=== PATIENT | male | born 1940 | race Caucasian/White ===

== ENCOUNTER → 2017-06-19 12:42 | Outpatient (CLI) | payer MEDICARE, OTHER ==
[2016-07-13 11:26] VITALS: BMI 26.8
[~2017-06-19 12:42] MED LIST: ALOPHEN PILLS5 MG PO; ATIVAN0.5 MG PO; BAYER CHEWABLE81 MG PO; CATAPRES0.1 MG PO; CO Q-10100 MG PO; COLACE100 MG PO; COUMADIN10 MG PO; COUMADIN5 MG PO; COUMADIN7.5 MG PO; DULCOLAX STOOL100 MG PO; FOLIC ACID1 MG PO; HEMOCYTE PLUS C1 CAP PO; HYDROCODON-ACE1 EAC7 PO; LASIX20 MG PO; LYRICA50 MG PO; MAG-OX 400 MG400 MG PO; NORVASC5 MG PO; OCUVITE TABLET1 TA1 PO; PEPCID20 MG PO; POTASSIUM99 M1 PO; PRAVACHOL20 MG PO; SINGULAIR10 MG PO; SINGULAIR5 MG PO; SYMBICORT 16010.2 GM INH; SYNTHROID125 MCG PO; SYNTHROID88 MCG PO; TUMS500 MG PO; VENTOLIN HFA18 GM INH; ZYLOPRIM100 MG PO; ZYRTEC10 MG PO
== END | disposition home or self-care (01) ==
LOC: D.US 12:42
DX: C34.90 Malignant neoplasm of unspecified part of unspecified bronchus or lung (principal); I65.23 Occlusion and stenosis of bilateral carotid arteries

== ENCOUNTER 2017-09-04 08:09 | Outpatient (CLI) | payer MEDICARE, OTHER ==
[2017-09-04] MEDS ORDERED: COUMADIN5 MG PO (09:17)
[2017-09-04] MEDS ORDERED: COUMADIN7.5 MG PO (09:18)
[2017-09-04] MEDS ORDERED: PRESERVISION AR1 CAP PO (09:24)
[2017-09-04 09:26] VITALS: BP 167/88; BMI 28.3
--- NOTE | 2017-09-04 09:29 | NUR ---
0910-STARTED SALINE LOCK WITH 20G CATHETER TIMES ONE ATTEMPT.
--- NOTE | 2017-09-04 15:00 | NUR ---
PATIENT LYING IN BED, SODIUM BICARB DRIP INFUSING TO LEFT WRIST PIV. PATIENT DENIES COMPLAINTS
--- NOTE | 2017-09-04 16:15 | NUR ---
PATIENT LYING IN BED, SODIUM BICARB DRIP INFUSING TO LEFT WRIST WITHOUT DIFFICULTY. DENIES COMPLAINTS, PATIENT REQUESTS WATER TO DRINK, CUP OF ICE WATER PROVIDED
== END 2017-09-04 17:35 | disposition home or self-care (01) ==
LOC: D.OPS 08:09 → D.CT 10:30 → D.OPS 17:35
DX: C34.90 Malignant neoplasm of unspecified part of unspecified bronchus or lung (principal)

== ENCOUNTER → 2018-06-18 14:33 | Outpatient (CLI) | payer MEDICARE, OTHER ==
[~2018-06-18 14:33] MED LIST changes: +CLEOCIN HCL300 MG PO; +PRESERVISION AR1 CAP PO
== END | disposition home or self-care (01) ==
LOC: D.US 14:33
DX: I65.23 Occlusion and stenosis of bilateral carotid arteries (principal)

== ENCOUNTER 2018-07-10 18:23 | Inpatient (IN) | payer MEDICARE, OTHER ==
[~2018-07-10] VITALS: Ht 177.8 cm; Wt 72.6 kg
--- NOTE | ~2018-07-10 | HP ---
PATIENT: RAGHAVENDRA COLE MEDICAL RECORD: [id number] ACCOUNT: [id number] LOCATION:D.[id number] : 44 ADMISSION DATE: 07/11/18 PCP: SOCRATES CROW MD HISTORY AND PHYSICAL EXAMINATION DATE OF ADMISSION: 07/10/2018 CHIEF COMPLAINT: Weakness and hypoxia. HISTORY OF PRESENT ILLNESS: This is a 77-year-old white male who had sudden onset of multiple episodes of nausea, vomiting followed by weakness became short of breath. 911 was called. His O2 sat was reportedly 82% on room air. He was given Xopenex and Zofran en route to the ER. He was placed on 2 liters nasal cannula, O2 sat was then in the low 90s. He had no chest pain. He has had a history of a carcinoid and had both right middle and right lower lobes were removed by Dr. Stephenson in 2015. He has obstructive sleep apnea and does use oxygen at night. His lab work was fairly unremarkable, but there was a suggestion of aspiration pneumonia, and he is admitted and started on antibiotics. PAST MEDICAL AND SURGICAL HISTORY: He has gout, hypertension, chronic kidney disease followed by Dr. Carlson, hypertension, anxiety, obstructive sleep apnea, carotid occlusive disease, hypercoagulable state, carcinoid, and hypothyroidism. PAST SURGICAL HISTORY: Right middle and right lower lobectomies in November [address] Stephenson. He has had right carotid endarterectomy. SOCIAL HISTORY: He is . He is retired. HABITS: No tobacco, alcohol or drugs. FAMILY HISTORY: Father at 44 of lung disease most likely emphysema. Brother had COPD and cancer. ALLERGIES: "CONTRAST DYE." HOME MEDICATIONS: Symbicort inhaler, levothyroxine 125 mcg once a day, Ativan 0.5 mg t.i.d. p.r.n. anxiety, aspirin 81 mg once a day, warfarin 5 and 7.5 alternating daily, Lyrica daily, Singulair 10 mg daily, amlodipine 5 mg daily, pravastatin 20 mg daily, allopurinol 100 mg daily, Protonix 40 mg daily, ProAir HFA q. 4-6 hours p.r.n. wheeze, HCTZ 25 mg. REVIEW OF SYSTEMS: HEENT: He does have some allergy problems. RESPIRATORY: He has had carcinoid and right lower and middle lobe lobectomies. CARDIAC: No known coronary disease but has carotid occlusive disease. GASTROINTESTINAL: Has reflux. GENITOURINARY: No significant problems other than some prostatitis. MUSCULOSKELETAL: No significant arthritis. NEUROLOGIC: No migraines or headaches. PSYCHIATRIC: Has anxiety. PHYSICAL EXAMINATION: VITAL SIGNS: Temperature 98.1, pulse 69, respiration 20, blood pressure 128/54. GENERAL: He is awake and alert, does not appear in acute distress. He is HISTORY AND PHYSICAL [id number] DOUGLAS,RAGHAVENDRA feeling better than what he was when he came into the ER. HEENT: Grossly within normal limits. NECK: Supple. No bruit. HEART: Regular rate and rhythm. LUNGS: Fairly clear. ABDOMEN: Soft. EXTREMITIES: No edema. LABORATORY DATA: CBC with a white count 11,000, hemoglobin 11.8, hematocrit 36.8, and platelets 128,000. Sodium 141, potassium 4.2, chloride 105, CO2 28.8, BUN 30, creatinine 2.0, glucose 107, and calcium 8.1. IMAGING: Chest x-ray was done showing stable right lung base consolidation, small right pleural effusion versus pleural thickening. ASSESSMENT: 1. Probable aspiration pneumonia. 2. Hypoxia. PLAN: We will give IV fluids, start antibiotics. Repeat chest x-ray. Continue his usual medicines. Other tests and procedures as warranted. TRANSINT:[id number] Voice Confirmation ID: [id number] DOCUMENT ID: [id number] SOCRATES CROW MD at 0850 CC: [id number] DICTATION DATE: 07/11/182149 MACHINERY CLEANER: 07/11/18 2309 ADM IN [place] [id number] [place] [address]
[~2018-07-10 18:23] MED LIST changes: -CLEOCIN HCL300 MG PO
[2018-07-10 19:15] LABS: BASOPHILS 0.1 % (0-2); EOSINOPHILS 0.1 % (0-7); HEMATOCRIT 39.4 % (42.0-54.0); HEMOGLOBIN 12.8 g/dL (13.5-17.5); IMMATURE GRANULOCYTES 0.2 % (0-5); LYMPHOCYTES 3.5 % (15-50); MCH 30.1 pg (26.0-34.0); MCHC 32.5 g/dL (31.0-37.0); MCV 92.7 fL (80.0-100.0); MEAN PLATELET VOLUME 11.4 fL (7.4-10.4); MONOCYTES 5.9 % (2-11); NEUTROPHILS 90.2 % (40-80); RBC 4.25 10x6/uL (4.20-6.10); RDW 14.3 % (11.5-14.5); WBC 12.5 10x3/uL (4.8-10.8)
[2018-07-10 19:26] VITALS: BP 111/57
[2018-07-10 19:26] LABS: PLATELET COUNT 121 10x3/uL (130-400)
[2018-07-10 19:29] LABS: APTT 29.7 SECONDS (22.8-39.4); INR 2.37 (0.85-1.17); PROTIME 25.3 SECONDS (11.6-15.0)
[2018-07-10 19:31] LABS: D-DIMER-QUANTITATIVE 0.34 ug/mLFEU (0.20-0.54)
[2018-07-10 19:37] LABS: ALBUMIN 3.2 g/dL (3.4-5.0); ALKALINE PHOSPHATASE 60 U/L (46-116); ALT (SGPT) 20 U/L (10-68); BILIRUBIN - TOTAL 0.62 mg/dL (0.2-1.3); CALC OSMOLALITY 283 mosm/kg (275-300); CALCIUM 8.4 mg/dL (8.5-10.1); CARBON DIOXIDE 30.5 mmol/L (21.0-32.0); CHLORIDE - SERUM 103 mmol/L (98-107); CREATININE - SERUM 1.8 mg/dL (0.6-1.3); GLUCOSE 133 mg/dL (74-106); SODIUM 138 mmol/L (136-145); UREA NITROGEN 28 mg/dL (7-18); eGFR NON AFRICAN AMERICAN 39 mL/min (90-120)
[2018-07-10 19:52] LABS: CREATINE KINASE 55 UL (21-232); PRO BNP 228 pg/mL (0-450); TROPONIN-I < 0.017 ng/mL (0.000-0.060)
[2018-07-10 20:15] VITALS: BP 110/62
[2018-07-10 21:00] VITALS: BP 114/63
[2018-07-10 22:00] VITALS: BP 124/65
[2018-07-11 02:13] VITALS: BP 117/55; BMI 23.0
[2018-07-11 04:00] VITALS: BP 127/71
[2018-07-11 07:11] LABS: BASOPHILS 0 % (0-2); EOSINOPHILS 0 % (0-7); HEMATOCRIT 36.8 % (42.0-54.0); HEMOGLOBIN 11.8 g/dL (13.5-17.5); IMMATURE GRANULOCYTES 0.1 % (0-5); LYMPHOCYTES 5.2 % (15-50); MCH 29.9 pg (26.0-34.0); MCHC 32.1 g/dL (31.0-37.0); MCV 93.2 fL (80.0-100.0); MEAN PLATELET VOLUME 11.6 fL (7.4-10.4); MONOCYTES 5.4 % (2-11); NEUTROPHILS 89.3 % (40-80); PLATELET COUNT 128 10x3/uL (130-400); RBC 3.95 10x6/uL (4.20-6.10); RDW 14.7 % (11.5-14.5)
[2018-07-11 07:43] LABS: ANION GAP 11.4 mmol/L (8-16); CALCIUM 8.1 mg/dL (8.5-10.1); CARBON DIOXIDE 28.8 mmol/L (21.0-32.0); POTASSIUM - SERUM 4.2 mmol/L (3.5-5.1)
[2018-07-11 09:56] VITALS: BP 131/62
[2018-07-11 13:28] VITALS: BP 128/54
[2018-07-11 14:45] VITALS: Ht 177.8 cm; Wt 72.6 kg
[2018-07-11 16:40] VITALS: BP 137/66
[2018-07-11 20:00] VITALS: BP 138/65
[2018-07-12 05:37] LABS: BASOPHILS 0.2 % (0-2); EOSINOPHILS 0.8 % (0-7); HEMATOCRIT 36.2 % (42.0-54.0); HEMOGLOBIN 11.6 g/dL (13.5-17.5); IMMATURE GRANULOCYTES 0.2 % (0-5); LYMPHOCYTES 15.3 % (15-50); MCH 29.8 pg (26.0-34.0); MCV 93.1 fL (80.0-100.0); MEAN PLATELET VOLUME 10.6 fL (7.4-10.4); NEUTROPHILS 71.5 % (40-80); RBC 3.89 10x6/uL (4.20-6.10); RDW 14.9 % (11.5-14.5)
[2018-07-12 05:53] LABS: PLATELET COUNT 101 10x3/uL (130-400); WBC 4.8 10x3/uL (4.8-10.8)
[2018-07-12 06:10] LABS: INR 2.24 (0.85-1.17); PROTIME 24.2 SECONDS (11.6-15.0)
[2018-07-12 06:22] LABS: ANION GAP 12.6 mmol/L (8-16); CALCIUM 7.8 mg/dL (8.5-10.1); CARBON DIOXIDE 28.2 mmol/L (21.0-32.0); CREATININE - SERUM 1.6 mg/dL (0.6-1.3); POTASSIUM - SERUM 3.8 mmol/L (3.5-5.1)
[2018-07-12 06:34] VITALS: BP 147/74
[2018-07-12] MEDS ORDERED: CLEOCIN HCL300 MG PO (13:36)
[2018-07-22 17:07] LABS: AEROBE ID Final report (()); RESULT 1 Moraxella species (())
== END 2018-07-12 14:27 | disposition home or self-care (01) | DRG 206 ==
LOC: D.ER 18:23 → D.MS 21:24 → OBSVTIME 21:24 → D.MS 07-11 15:26
PROVIDERS: Family Medicine
DX: T17.800A Unspecified foreign body in other parts of respiratory tract causing asphyxiation, initial encounter (principal); X58.XXXA Exposure to other specified factors, initial encounter; M10.9 Gout, unspecified; I12.9 Hypertensive chronic kidney disease with stage 1 through stage 4 chronic kidney disease, or unspecified chronic kidney disease; N18.9 Chronic kidney disease, unspecified; F41.9 Anxiety disorder, unspecified; G47.33 Obstructive sleep apnea (adult) (pediatric); E03.9 Hypothyroidism, unspecified

== ENCOUNTER → 2019-04-23 09:04 | Outpatient (CLI) | payer MEDICARE, OTHER ==
[2018-07-11 14:45] VITALS: BMI 22.9
[~2019-04-23 09:04] MED LIST changes: +CLEOCIN HCL300 MG PO
== END | disposition home or self-care (01) ==
LOC: D.MRI 09:04
PROVIDERS: ATTEND Internal Medicine Hematology & Oncology
DX: C34.30 Malignant neoplasm of lower lobe, unspecified bronchus or lung (principal)

== ENCOUNTER 2019-05-07 10:58 | Outpatient (CLI) | payer MEDICARE, OTHER ==
[~2019-05-07] VITALS: Ht 177.8 cm; Wt 92.7 kg
[2019-05-07 11:46] VITALS: BP 183/83; Ht 177.8 cm; Wt 92.7 kg
--- NOTE | 2019-05-07 19:26 | NUR ---
[address] IV INFUSING ON A PUMP FOR ONE HOUR AND THEN PT WILL BE DISCHARGED. RECIEVED A TRAY OF FOOD. 1700 IV REMOVED AND PT GIVEN INSTRUCTIONS TO CALL MD FOR ANY CONCERNS.
== END 2019-05-07 17:15 | disposition home or self-care (01) ==
LOC: D.OPS 10:58 → D.CT 15:00 → D.OPS 17:15
PROVIDERS: ATTEND Internal Medicine Hematology & Oncology
DX: C22.8 Malignant neoplasm of liver, primary, unspecified as to type (principal)

== ENCOUNTER 2019-05-21 08:14 | Outpatient (CLI) | payer MEDICARE, OTHER ==
[~2019-05-21] VITALS: Ht 177.8 cm; Wt 93.2 kg
[2019-05-21 08:29] LABS: BASOPHILS 0.3 % (0-2); EOSINOPHILS 1.9 % (0-7); HEMATOCRIT 37.3 % (42.0-54.0); HEMOGLOBIN 12.3 g/dL (13.5-17.5); IMMATURE GRANULOCYTES 0.5 % (0-5); LYMPHOCYTES 28.6 % (15-50); MEAN PLATELET VOLUME 10.9 fL (7.4-10.4); MONOCYTES 11.7 % (2-11); RDW 14.9 % (11.5-14.5); WBC 3.7 10x3/uL (4.8-10.8)
[2019-05-21 08:39] LABS: ANION GAP 8.8 mmol/L (8-16); CALCIUM 8.9 mg/dL (8.5-10.1); CARBON DIOXIDE 31.1 mmol/L (21.0-32.0); CREATININE - SERUM 1.7 mg/dL (0.6-1.3); POTASSIUM - SERUM 3.9 mmol/L (3.5-5.1)
[2019-05-21 08:44] LABS: PLATELET COUNT 128 10x3/uL (130-400)
[2019-05-21 08:46] LABS: APTT 30.6 SECONDS (22.8-39.4); INR 0.98 (0.85-1.17); PROTIME 12.5 SECONDS (11.6-15.0)
[2019-05-21] MEDS ORDERED: BAYER CHEWABLE81 MG PO (09:19)
[2019-05-21] MEDS ORDERED: VITAMIN D2000 UNIT PO (09:20)
[2019-05-21] MEDS ORDERED: LOVENOX INJ100 MG/ML SC (09:24)
[2019-05-21 09:39] VITALS: BP 172/80; Ht 177.8 cm; Wt 93.2 kg
--- NOTE | 2019-05-21 17:48 | NUR ---
[address] CHICAS'S OFFICE SPOKE WITH CHATO HIS NURSE. STATES PT IS TO RESUME COUMADIN 7 DAYS POST PROCEDURE. ORDER ENTERED. Haleigh BRAUN R.N. 1545 MRS. COLE QUESTIONS HOLDING COUMADIN & NOT RESUMING LOVENOX INJECTIONS. [address]ND CALL TO [address]. CHICAS'S OFFICE. CHATO STATES DR. CHICAS DID NOT ORDER THE LOVENOX A BRIDGE TO COUMADIN. THOSE ORDERS CAME FROM DR. TROTTER. Haleigh BRAUN R.N. [address] TROTTER'S OFFICE. SPOKE WITH CARMITA JONES R.N. HE STATES PROTOCOL WOULD BE TO RESUME LOVENOX 24HRS POST PROCEDURE & COUMADIN ON 05/22/19. PT TO HAVE LAB: PT, PTT, INR DONE 05/23/19/@ [address] TROTTER'S OFFICE. INFORMATION PRESENT TO MRS. COLE & DAUGHTER DERRICK KIRBY PER PHONE. QUESTIONS POSED TO MG OF LOVENOX INJECTION. Haleigh BRAUN R.N. [address] TROTTER'S OFFICE. SPOKE WITH CARMITA JONES R.N. R/T MG OF LOVENOX INJECTION. DR. TROTTER TO PHONE. REVIEWED VARIOUS ORDERS RECEIVED. DR. TROTTER STATES BASED ON MEMOS FROM DR. CHICAS TO ORDER THE PATIENT TO HOLD COUMADIN FOR 7 DAYS POST PROCEDURE. BEGIN LOVENOX SUBCUTANEOUS INJECTIONS: 80MG TWICE DAILY STARTING 05/22/19. Haleigh BRAUN R.N. 1700 MED REC WITH NOTATION TO HOLD ASA & COUMADIN 7 DAYS POST PROCEDURE, & TAKE LOVENOX 80MG SUBCUTANEOUS, RTC APPT., [facility] D/C INSTRUCTIONS WELL CT GUIDED LIVER BIOPSY D/C INSTRUCTIONS REVIEWED WITH PATIENT, MRS. COLE, & DAUGHTER DERRICK KIRBY. WITH EMPHASIS TO PATIENT & FAMILY THAT THIS WAS PER DR. TROTTER. PT & FAMILY VOICED UNDERSTANDING. TO PRIVATE CAR PER WHEELCHAIR BY Karen BAUER R.N.
== END 2019-05-21 17:00 | disposition home or self-care (01) ==
LOC: D.SP 08:14 → D.CT 10:00 → D.SP 17:00
PROVIDERS: Radiology Vascular & Interventional Radiology; ATTEND Internal Medicine Hematology & Oncology
DX: C22.8 Malignant neoplasm of liver, primary, unspecified as to type (principal); Z01.812 Encounter for preprocedural laboratory examination

== ENCOUNTER 2019-06-13 14:53 | Outpatient (CLI) | payer MEDICARE, OTHER ==
[~2019-06-13 14:53] MED LIST changes: +LOVENOX INJ100 MG/ML SC; +VITAMIN D2000 UNIT PO
[2019-06-13] MEDS ORDERED: JANTOVEN2.5 MG PO (15:07)
[2019-06-13] MEDS ORDERED: COLACE100 MG PO (18:34)
[2019-06-14] MEDS ORDERED: LYRICA50 MG PO (07:07)
[2019-06-14 11:01] VITALS: BMI 29.4
[2019-06-14] MEDS ORDERED: NORVASC10 MG PO (13:07)
== END 2019-06-13 17:02 | disposition other institution (70) ==
LOC: D.OPS 14:53
PROVIDERS: ATTEND Internal Medicine Nephrology
DX: R07.9 Chest pain, unspecified (principal); N28.9 Disorder of kidney and ureter, unspecified

== ENCOUNTER 2019-06-13 14:53 | Inpatient (IN) | payer MEDICARE, OTHER ==
[~2019-06-13] VITALS: Ht 177.8 cm; Wt 92.9 kg
[2019-06-13] MEDS ORDERED: JANTOVEN2.5 MG PO (15:07)
[2019-06-13 15:30] LABS: BASOPHILS 0.2 % (0-2); EOSINOPHILS 2.2 % (0-7); HEMATOCRIT 37.3 % (42.0-54.0); HEMOGLOBIN 12.3 g/dL (13.5-17.5); IMMATURE GRANULOCYTES 0.2 % (0-5); LYMPHOCYTES 29.3 % (15-50); MCH 30.3 pg (26.0-34.0); MCV 91.9 fL (80.0-100.0); MEAN PLATELET VOLUME 10.9 fL (7.4-10.4); MONOCYTES 8.9 % (2-11); NEUTROPHILS 59.2 % (40-80); PLATELET COUNT 133 10x3/uL (130-400); RBC 4.06 10x6/uL (4.20-6.10); RDW 15.1 % (11.5-14.5); WBC 4.1 10x3/uL (4.8-10.8)
[2019-06-13 16:04] LABS: ALBUMIN 3.4 g/dL (3.4-5.0); ALKALINE PHOSPHATASE 64 U/L (46-116); ALT (SGPT) 18 U/L (10-68); BILIRUBIN - TOTAL 0.31 mg/dL (0.2-1.3); CALC OSMOLALITY 284 mosm/kg (275-300); CALCIUM 9.3 mg/dL (8.5-10.1); CARBON DIOXIDE 29.3 mmol/L (21.0-32.0); CHLORIDE - SERUM 105 mmol/L (98-107); CREATININE - SERUM 1.6 mg/dL (0.6-1.3); GLUCOSE 94 mg/dL (74-106); POTASSIUM - SERUM 4.1 mmol/L (3.5-5.1); PROTEIN - SERUM 6.8 g/dL (6.4-8.2); SODIUM 142 mmol/L (136-145); UREA NITROGEN 17 mg/dL (7-18); eGFR NON AFRICAN AMERICAN 45 mL/min (90-120)
[2019-06-13 16:15] LABS: CKMB 1.1 U/L (0.0-3.6); CREATINE KINASE 65 UL (21-232); MAGNESIUM - SERUM 1.9 mg/dL (1.8-2.4)
[2019-06-13 16:17] LABS: APTT 29.4 SECONDS (22.8-39.4); INR 1.5 (0.85-1.17); PROTIME 17.5 SECONDS (11.6-15.0)
[2019-06-13 16:20] LABS: TROPONIN-I < 0.017 ng/mL (0.000-0.060)
[2019-06-13] MEDS ORDERED: COLACE100 MG PO (18:34)
--- NOTE | 2019-06-13 18:40 | NUR ---
RECEIVED PT FROM ER VIA W/C AAOX4 NELSON LAGOON DENIES ANY CHEST PAIN RESP UNLABORED NAD NOTED
--- NOTE | 2019-06-13 19:20 | NUR ---
AWAKE AND ALERT WITH FAMILY PRESENT PT WANTING ATIVAN NOW LCTA SKIN WARM AND DRY DENIES ANY OTHER NEEDS BED LOW AND LOCKED AND CALL LIGHT IS IN REACH
[2019-06-13 20:00] VITALS: BP 160/70
[2019-06-13 21:25] LABS: CKMB 0.9 U/L (0.0-3.6); CREATINE KINASE 58 UL (21-232)
[2019-06-13 21:26] LABS: TROPONIN-I < 0.017 ng/mL (0.000-0.060)
[2019-06-14] VITALS: BP 166/72
[2019-06-14 01:36] VITALS: BP 160/70
[2019-06-14 03:45] VITALS: BP 174/86; BMI 29.4
[2019-06-14 04:30] VITALS: BP 161/79
[2019-06-14 05:19] LABS: CKMB 0.8 U/L (0.0-3.6); CREATINE KINASE 77 UL (21-232)
[2019-06-14 05:20] LABS: TROPONIN-I < 0.017 ng/mL (0.000-0.060)
[2019-06-14] MEDS ORDERED: LYRICA50 MG PO (07:07)
--- NOTE | 2019-06-14 07:40 | NUR ---
ASSESSMENT COMPLETED. DENIES ANY NEEDS. ALERT AND ORIENTED.TELEMERTY SHOWS SR 65. PT IS NP0,UNTIL SEEN BY CARDIOLOGY. UP AB FLACO. WILL MONITOR
[2019-06-14 09:04] VITALS: BP 176/89
[2019-06-14 11:01] VITALS: Ht 177.8 cm; Wt 92.9 kg
[2019-06-14 12:20] VITALS: BP 194/95
[2019-06-14] MEDS ORDERED: NORVASC10 MG PO (13:07)
--- NOTE | 2019-06-14 15:01 | NUR ---
PT DISCHARGED. INSTRUCTIONS GIVEN TO PT AND . TO PRIVATE CAR PER WHEELCHAIR
--- NOTE | 2019-06-14 15:56 | MORECARE ---
CASE MANAGEMENT DISCHARGE SUMMARY PATIENT: RAGHAVENDRA COLE UNIT: [id number] ADM DATE: 06/13/19 AGE: 78 : 42 SEX: M ROOM/BED: D.3519 AUTHOR: ALEXANDRO GARCIA PHYSICIAN: REFERRING PHYSICIAN: BABAK CHICAS MD DATE OF SERVICE: 06/14/19 Discharge Plan Patient Name: RAGHAVENDRA COLE Facility: [facility]:[place] : 1940 Planned Disposition: Home Anticipated Discharge Date: 06/14/19 Discharge Date: 06/14/2019 Expected LOS: 1 Initial Reviewer: [email or web address] Initial Review Date: 06/14/2019 Generated: 06/14/19 4:56 pm Comments DCP- Discharge Planning Updated by [email or web address]: José Antonio Mc on 06/14/19 2:[address] Patient Name: RAGHAVENDRA COLE Admission Status: ER Accout number: [id number] Admission Date: 06-13-2019 : 1940 Admission Diagnosis:CHEST PAIN, UNSPECIFIED Attending: BABAK CHICAS Current LOS: 1 Anticipated DC Date: 06-14-2019 Planned Disposition: Home Primary Insurance: MEDICARE A & B Discharge Planning Comments: CM MET WITH PT IN ROOM TO DISCUSS DISCHARGE PLANNING AND NEEDS. PT REPORTS LIVING AT HOME INDEPENDENTLY WITH SPOUSE. PT HAS HOME OXYGEN ONLY FROM [facility]. PT HAS NO OUTSIDE SERVICES ASSISTING IN THE HOME. CM DISCUSSED AVAILABILITY OF HOME HEALTH, REHAB SERVICES AND MEDICAL EQUIPMENT. PT DENIES DISCHARGE NEEDS, REPORTS HIS WILL PICK HIM UP FOR DISCHARGE HOME. Person Investigator: José Antonio Mc DCPIA - Discharge Planning Initial Assessment Updated by [email or web address]: José Antonio Mc on 06/14/19 3:48 pm * Is the patient Alert and Oriented? Yes * How many steps to enter\exit or inside your home? RAMP OR 2 * PCP DR. CROW * Pharmacy [facility] * Preadmission Environment Home with Family * ADLs Independent * Equipment Oxygen * Other Equipment HOME OXYGEN ONLY [facility] - PROVIDER * List name and contact numbers for known caregivers / representatives who currently or will assist patient after discharge: SEBASTIAN COLE, SPOUSE, * Verbal permission to speak to the caregivers and representatives has been obtained from the patient. Yes * Community resources currently utilized None * Please name any agencies selected above. NONE * Additional services required to return to the preadmission environment? No * Can the patient safely return to the preadmission environment? Yes * Has this patient been hospitalized within the prior 30 days at any hospital? No Patient Name: RAGHAVENDRA COLE Page [id number] at 1556 All edits/amendments must be made on the electronic document DICTATION DATE: 06/14/196 WELDING FOREMAN: SANGEETHA 06/14/19 1556 RPT#: [id number] DC DATE:06/14/19 STATUS: DIS IN [facility] [address] [place] [address] END OF REPORT
== END 2019-06-14 15:02 | disposition home or self-care (01) | DRG 313 ==
LOC: D.ER 14:53 → D.M2 17:02
PROVIDERS: Emergency Medicine; ADMIT Internal Medicine Nephrology; ATTEND Internal Medicine Nephrology
DX: R07.9 Chest pain, unspecified (principal); I12.9 Hypertensive chronic kidney disease with stage 1 through stage 4 chronic kidney disease, or unspecified chronic kidney disease; K21.9 Gastro-esophageal reflux disease without esophagitis; J44.9 Chronic obstructive pulmonary disease, unspecified; E78.5 Hyperlipidemia, unspecified; Q05.9 Spina bifida, unspecified; Z86.73 Personal history of transient ischemic attack (TIA), and cerebral infarction without residual deficits; N18.3 Chronic kidney disease, stage 3 (moderate)

== ENCOUNTER → 2019-07-04 11:32 | Outpatient (CLI) | payer MEDICARE, OTHER ==
[2019-06-14 11:01] VITALS: BMI 29.4
[~2019-07-04 11:32] MED LIST changes: +COUMADIN2.5 MG PO; +DULCOLAX5 MG PO; +HYDRALAZINE HCL25 MG PO; +JANTOVEN2.5 MG PO; +NORVASC10 MG PO; +PROTONIX40 MG PO; +SYNTHROID100 MCG PO
== END | disposition home or self-care (01) ==
LOC: D.HCCARDIO 11:32
PROVIDERS: ATTEND Internal Medicine Cardiovascular Disease
DX: I20.9 Angina pectoris, unspecified (principal)

== ENCOUNTER 2019-07-29 11:03 | Outpatient (CLI) | payer MEDICARE, OTHER ==
[~2019-07-29] VITALS: Ht 177.8 cm; Wt 94.5 kg
--- NOTE | ~2019-07-29 | HEMODYNAMI ---
PATIENT:RAGHAVENDRA COLE MEDICAL RECORD: [id number] : 44 LOCATION:[id number] ADMISSION DATE: 07/29/19 Generatedon:07/29/201914:16 Patient name: RAGHAVENDRA COLE Patient #: [id number] : 1940 Date of study: 07/29/2019 Page: Of Hemodynamic Procedure Report Patient Data Patient Demographics Procedure consent was obtained First Name: RAGHAVENDRA Gender: Male Last Name: DOUGLAS : 1940 Patient #: [id number] Age: 78 year(s) Race: SSN: [id number] Additional ID: [id number] Contact details [address]: [address] [place] [address] State: [place] City: [place] Zip code: [address] Past Medical History Allergies Allergen Reaction Date Comments Reported Other allergy Other 07/29/2019 iodine/ Admission Admission Data Admission Date: 07/29/2019 Admission Time: 11:03 Arrival Date: 07/29/2019 Arrival Time: 13:00 Room #: [id number] Insurance Payor: Medicare, Private health insurance Height (in.): 69.69 BSA: 2.12 (m2) Height (cm.): 177 BMI: 30.32 (kg/m2) Weight (lbs.): 209.44 Weight (kg.): 95 Lab Results Lab Result Date: 07/29/2019 Lab Result Time: 0:00 Biochemistry Name Units Result Min Max BUN mg/dl 26 --(----)-* 7 18 Creatinine mg/dl 2.7 --(----)-* 0.6 1.3 eGFR ml/min 24 *-(----)-- 90 120 NONAFRICAN CBC Name Units Result Min Max Hemoglobin g/dl 12.1 *-(----)-- 13.5 17.5 Procedure Procedure Types Cath Procedure Diagnostic Procedure LHC LHC w/Coronaries Sedation Charges Moderate Sedation up to 30 minutes Procedure Description Procedure Date Procedure Date: 07/29/2019 Procedure Start Time: 13:51 Procedure End Time: 14:11 Procedure Staff Name Function Clarissa Sukumar RT Monitor Lai Ramos MD Performing Physician Jasmine Esquivel RT Scrub Matilda Lennon RT Monitor Jarrett Pillai RN Nurse Indication Angina Procedure Data Cath Procedure Fluoroscopy Diagnostic fluoroscopy Total fluoroscopy Time: 2.6 time: 2.6 min min Diagnostic fluoroscopy Total fluoroscopy dose: 401 dose: 401 mGy mGy Contrast Material Contrast Material Type Amount (ml) Isovue 300 41 Entry Location Entry Primary Successful Side Size Upsize Upsize Entry Closure Succes sful Closure Location (Fr) 1 (Fr) 2 (Fr) Remarks Device Remarks Femoral Right 5 Fr Exoseal artery Estimated blood loss: 5 ml Procedure Complications No complications Procedure Medications Medication Administration Route Dosage 0.9% NaCl I.V. 100 ml/hr Oxygen etCO2 Nasal cannula 2 l/min Heparin Flush Bag added to field 2 bags (1000units/500ml NS) Lidocaine 2% added to field 20 Radial Cocktail added to field 1 syringe (Verapamil 2mg/Nitro 400mcg/Heparin 1500units) Versed I.V. 1 mg Fentanyl I.V. 50 mcg Versed I.V. 1 mg Fentanyl I.V. 50 mcg Hemodynamics Rest BSA: 2.12 (m2) HGB: 12.1 (g/dl) O2 Consumption: Estimated: 240.19 (ml/min) O2 Co nsumption indexed: Estimated:113.3 (ml/min/m) Heart Rate: 66 (bpm) Pressure Samples Time Site Value (mmHg) Purpose Heart Use Rate(bpm) 14:05 LV 169/20,26 Snapshot 70 14:05 LV 150/-8,14 Snapshot 70 Gradients Valve Time Site Site Mean SEP/DFP Peak To Heart Use 1 2 (mmHg) (sec/min) Peak Rate (mmHg) (bpm) Aortic 14:06 LV AO 76 Snapshots Pre Cath Intra NCS Post Cath Vital Signs Time Heart Resp SPO2 etCO2 NIBP (mmHg) Rhythm Pain Sedation Rate (ipm) (%) (mmHg) Status Level (bpm) 13:40:55 64 14 96 33.8 166/85(141) NSR 0 (11) 10(A) , No pain 13:45:20 63 19 93 35.3 156/80(127) NSR 0 (11) 10(A) , No pain 13:49:42 63 14 92 15 151/78(126) NSR 0 (11) 10(A) , No pain 13:53:58 71 11 94 39.1 159/86(128) NSR 0 (11) 10(A) , No pain 13:58:16 73 11 91 31.6 162/91(128) NSR 0 (11) 10(A) , No pain 14:02:40 74 11 92 28.5 163/78(135) NSR 0 (11) 9(A) , No pain 14:07:04 77 13 93 36.8 151/78(122) NSR 0 (11) 9(A) , No pain 14:11:21 73 12 93 39.8 155/86(128) NSR 0 (11) 9(A) , No pain Medications Time Medication Route Dose Verified Delivered Reason Notes E ffectiveness by by 13:40:03 0.9% NaCl I.V. 100 Jarrett Jarrett Per ml/hr Rosas Lorigan physician RN RN 13:40:12 Oxygen etCO2 2 l/min Jarrett Jarrett for low 02 Nasal Lorigan Lorigan sats cannula RN RN 13:40:24 Heparin Flush added 2 bags Jarrett Jarrett used for Bag to Lorigan Lorigan procedure (1000units/500ml field RN RN NS) 13:40:34 Lidocaine 2% added 20ml Jarrett Jarrett for local to vial Lorigan Lorigan anesthetic field RN RN 13:40:55 Radial Cocktail added 1 Jarrett Jarrett used for (Verapamil to syringe Lorigan Lorigan procedure 2mg/Nitro field RN RN 400mcg/Hepari 13:51:48 Versed I.V. 1 mg Jarrett Jarrett for Lorigan Lorigan sedation RN RN 13:51:56 Fentanyl I.V. 50 mcg Jarrett Jarrett for Lorigan Lorigan sedation RN RN 13:55:20 Versed I.V. 1 mg Jarrett Jarrett for Lorigan Lorigan sedation RN RN 13:55:26 Fentanyl I.V. 50 mcg Jarrett Jarrett for Lorigan Lorigan sedation RN precipitator supervisor Log Time Note 13:21:18 Informed consent obtained and on chart 13:21:37 Diagnostic Cath Status : Elective 13:22:04 Indication : Angina 13:22:13 ACC Patient presents with Unstable Angina CCS Anginal Class 4--Inability to carry out any physical activity w/o angina. Angina may occur at rest. 13:22:26 Procedure Status Elective Heart Cath (OP). 13:22:57 Jasmine Esquivel RT(R) sent for patient. Start room use. 13:23:19 Time tracking: Regular hours (M-F 7:00 - 5:00) 13:23:24 Plan of Care:Hemodynamics will remain stable., Cardiac rhythm will remain stable., Comfort level will be maintained., Respiratory function will remain adequate., Patient/ family verbilizes understanding of procedure., Procedure tolerated without complication., Recovers from procedure without complications.. 13:28:12 Patient received from Pre/Post Procedure Room to CCL 2 Alert and oriented. Tansferred to table in Supine position. 13:28:16 Warm blankets applied, and brenda hugger turned on for patient comfort. 13:28:17 Correct patient and procedure confirmed by team. 13:28:18 ECG and BP/O2 sat monitors applied to patient. 13:39:40 Vital chart was started 13:39:58 Arrival Date: 07/29/2019 1:00:00 PM 13:40:03 0.9% NaCl 100 ml/hr I.V. was administered by Jarrett Pillai RN; Per physician; Verbal order read back and verified. 13:40:07 Insurance Payor : Private health insurance, Medicare 13:40:12 Oxygen 2 l/min etCO2 Nasal cannula was administered by Jarrett Pillai RN; for low 02 sats; Verbal order read back and verified. 13:40:24 Heparin Flush Bag (1000units/500ml NS) 2 bags added to field was administered by Jarrett Pillai RN; used for procedure; Verbal order read back and verified. 13:40:31 Patient Height : 69.69 inches 13:40:34 Lidocaine 2% 20ml vial added to field was administered by Jarrett Pillai RN; for local anesthetic; Verbal order read back and verified. 13:40:39 Patient Weight : 209.44 lbs 13:40:55 Radial Cocktail (Verapamil 2mg/Nitro 400mcg/Heparin 1500units) 1 syringe added to field was administered by Jarrett Pillai RN; used for procedure; Verbal order read back and verified. 13:41:01 Baseline sample Acquired. 13:41:06 Rhythm: sinus rhythm 13:41:08 Full Disclosure recording started 13:41:22 H&P Date Dictated: 07/29/2019 Within 30 days and on chart., H&P Addendum completed by physician on day of procedure. (MUST COMPLETE FOR ALL OUTPATIENTS). 13:41:41 Pre-procedure instructions explained to patient. 13:41:42 Pre-op teaching completed and patient verbalized understanding. 13:41:59 Family in patients room. 13:42:15 Patient NPO since Midnight. 13:43:11 Patient allergic to Other allergyiodine/ 13:43:19 Is the patient allergic to Iodine/contrast media? not really allergic but Dr. Holland wanted pre medicated. 13:43:57 Was the patient premedicated? Yes 13:44:52 Is patient on blood thinner?Yes 13:45:15 Warfarin stopped 3 days ago. 13:45:20 Patient diabetic?no. 13:45:44 ----Pre-sedation anethsthesia assessment.---- 13:45:53 Previous problem with sedation/anesthesia? No ? 13:45:55 Snore? Yes 13:45:58 Sleep apnea? No 13:46:00 Deviated septum? No 13:46:04 Opens mouth fully? Yes 13:46:06 Sticks out tongue? Yes 13:46:18 Airway obstruction? Yes lung ca history 13:46:26 Dentures? No ? 13:48:01 Pre procedure: left dorsailis pedis pulse 1+ Palpable, but thready & weak; easily obliterated 13:48:06 Pre procedure: right dorsailis pedis pulse 1+ Palpable, but thready & weak; easily obliterated 13:48:14 Patient pain scale 0/10 ?. 13:48:23 Modified Jeff's test Radial < 7 seconds 13:48:37 IV patent on arrival in left forearm with 0.9% NaCl at [facility]. 13:48:50 Lab results completed and on chart. 13:49:04 Right Radial & Right Groin area was prepped with chlora-prep and draped in sterile fashion 13:49:06 Alarms reviewed by R. N. 13:49:07 Sharps counted by scrub and verified by R.N. 13:49:08 Physician arrived 13:49:11 --------ALL STOP TIME OUT------ 13:49:12 Final Timeout: patient, procedure, and site verified with staff and physician. All members of the team are in agreement. 13:49:15 Right Radial & Right Groin site verified by team. 13:49:22 Fire Safety Assessment: A--An alcohol-based skin anteseptic being used preoperatively., C--Open oxygen or nitrous oxide is being used., D--An ESU, laser, or fiber-optic light is being used. 13:49:30 Physical assessment completed. ASA score P 2 - A patient with mild systemic disease as per Lai Ramos MD. 13:49:45 4) 15-29 Severley reduced kidney function. 13:50:12 Maximum allowable contrast dose (3.7 X eGFR X 0.75)66 ml. 13:50:20 Sedation plan: IV Moderate Sedation Medication:Versed, Fentanyl 13:50:43 Use device set Radial Dx or PCI 13:50:45 ACIST Syringe (31169) opened to sterile field. 13:50:47 Medline Cath Pack ([id number]) opened to sterile field. 13:50:48 Bag Decanter (2002S) opened to sterile field. 13:50:49 ACIST Manifold (18996) opened to sterile field. 13:50:49 ACIST Hand Control (64039) opened to sterile field. 13:50:50 Tegaderm 4 x 4 (1626W) opened to sterile field. 13:50:52 MBrace Wrist Support ([id number]) opened to sterile field. 13:50:54 NEEDLE Cook 21G 4cm Radial (U29353) opened to sterile field. 13:51:02 SHEATH 6FR RAIN (2190867) opened to sterile field. 13:51:03 EMERALD Guide Wire (941-997) opened to sterile field. 13:51:09 Procedure started. 13:51:16 Zero performed for pressure channel P1 13:51:36 Local anesthetic to right radial artery with Lidocaine 2% by Lai Ramos MD.INITIAL ACCESS ONLY 13:51:48 Versed 1 mg I.V. was administered by Jarrett Pillai RN; for sedation; Verbal order read back and verified. 13:51:56 Fentanyl 50 mcg I.V. was administered by Jarrett Pillai RN; for sedation; Verbal order read back and verified. 13:54:15 SHEATH 5FR [place] (PNA378) opened to sterile field. 13:54:29 DIAGNOSTIC Multipack 5Fr catheter set ([id number]) opened to sterile field. 13:54:44 Local anesthetic to right femoral artery with Lidocaine 2% by Lai Ramos MD.ADDITIONAL ACCESS 13:55:02 A 5 Fr sheath was inserted into the Right Femoral artery 13:55:20 Versed 1 mg I.V. was administered by Jarrett Pillai RN; for sedation; Verbal order read back and verified. 13:55:26 Fentanyl 50 mcg I.V. was administered by Jarrett Pillai RN; for sedation; Verbal order read back and verified. 13:56:07 Lab Result : eGFR NONAFRICAN 24 ml/min 13:56:07 Lab Result : Hemoglobin 12.1 g/dl 13:56:07 Lab Result : BUN 26 mg/dl 13:56:07 Lab Result : Creatinine 2.7 mg/dl 13:57:50 5 Fr JL4 guide catheter was inserted over the wire 13:59:20 LCA angiography performed. 14:01:16 Injector settings: Ml/sec: 3, Volume: 6, 14:01:20 Catheter removed. 14:01:47 5 Fr 3drc guide catheter was inserted over the wire 14:02:49 Injector settings: Ml/sec: 3, Volume: 6, 14:02:57 ACCDominant side:Left 14:03:08 Catheter removed. 14:03:21 5 Fr PIGTAIL guide catheter was inserted over the wire 14:05:22 LV hemodynamics recorded. 14:05:46 LV gram done using FIGUEROA 14:05:55 Injector settings: Ml/sec: 5, Volume: 15, 14:06:09 EF : 55 % 14:06:43 EXOSEAL 5Fr (EX500) opened to sterile field. 14:07:25 Catheter removed. 14:07:44 Sheath removed intact; hemostasis achieved with Exoseal to the Right Femoral artery. 14:07:47 Procedure ended.(Physican Out) 14:07:55 Fluoroscopy time 02.60 minutes. 14:08:31 Fluoroscopy dose: 401 mGy 14:08:31 Flurop Dose total: 401 14:08:42 Dose Area Product 39196 mGy/cm. 14:08:47 Contrast amount:Isovue 300 41ml. 14:08:51 Sharps counted by scrub and verified by R.N. 14:08:55 Insertion/operative site no bleeding no hematoma. 14:09:08 Post-op/insertion site Right Femoral artery dressed using a 4 x 4 and Tegaderm. 14:09:24 Post Procedure Pulses reassessed and unchanged 14:09:50 Post procedure rhythm: unchanged. 14:09:58 Estimated blood loss: 5 ml 14:10:01 Post procedure instruction explained to patient.Patient verbalizes understanding. 14:10:02 Patient needs reinforcement of post procedure teaching. 14:10:32 Procedure type changed to Cath procedure, Diagnostic procedure, LHC, LHC w/Coronaries, Sedation Charges, Moderate Sedation up to 30 minutes 14:10:35 Procedure and supply charges have been captured, reviewed, submitted and are correct. 14:10:44 Procedure Complication : No complications 14:10:48 Vital chart was stopped 14:10:49 See physician's report for complete and final results. 14:10:54 Report given to Pre/Post Procedure Room. 14:11:00 Patient transfered to Pre/Post Procedure Room with Stretcher. 14:11:04 Full Disclosure recording stopped 14:11:04 Procedure ended. 14:11:58 End room use (Document Last) Device Usage Item Name Manufacture Quantity Catalog Hospital Part Current Minima l Lot# / Number Charge Number Stock Stock Serial# Code ACIST Acist 1 [id number] [id number] 193716 034066 20 Syringe Medical (61030) Systems Inc Medline Medline 1 [id number] 017032 46835 573381 5 Cath Pack ([id number]) Bag Microtek 1 2001S 870444 48211 949437 5 Decanter Medical Inc. () ACIST Hand Acist 1 18650 681591 757529 214178 5 Control Medical (07164) Systems Inc ACIST Acist 1 81281 717511 443460 919591 5 Manifold Medical (39568) Systems Inc Tegaderm 4 3M 1 1626W 665960 454505 612933 5 x 4 (1626W) MBrace Advanced 1 140-0250-00 884125 96243 297095 5 Wrist Vascular Support Dynamics ([id number]) NEEDLE Cook Cook Medical 1 F61414 778274 970407 038062 5 21G 4cm Radial (Y12328) SHEATH 6FR Cardinal 1 0608095 470949 9261898 918060 5 [facility] (6815778) EMERALD Cardinal 1 502-455 778070 259595 589155 5 Guide Wire [facility] (502-455) SHEATH 5FR Terumo 1 ZBY624 985235 109258 174698 5 [place] (GVI342) DIAGNOSTIC Cardinal 1 YF4609 772248 40523 105483 30 [place] 5Fr catheter set (HG3403) EXOSEAL 5Fr Cardinal 1 EX500 165576 646551 796045 10 (EX500) Health Signature Audit Blanket Stage Time Signature Unsigned Intra-Procedure 07/29/2019 Matilda 2:13:24 PM Saji RT(R) (CV) Intra-Procedure 07/29/2019 Jarrett 2:13:53 PM Rosas MEDINA Intra-Procedure 07/29/2019 Lai Ramos MD 2:16:01 PM [facility] [address] [place] [address]
[~2019-07-29 11:03] MED LIST changes: -COUMADIN2.5 MG PO; -DULCOLAX5 MG PO; -HYDRALAZINE HCL25 MG PO; -PROTONIX40 MG PO; -SYNTHROID100 MCG PO
[2019-07-29] MEDS ORDERED: SYNTHROID100 MCG PO (11:38)
[2019-07-29] MEDS ORDERED: PROTONIX40 MG PO (11:42)
[2019-07-29 11:43] VITALS: BP 161/73; Ht 177.8 cm; Wt 94.5 kg
[2019-07-29] MEDS ORDERED: COUMADIN5 MG PO (11:44)
[2019-07-29] MEDS ORDERED: NORVASC5 MG PO (11:45)
[2019-07-29] MEDS ORDERED: COUMADIN2.5 MG PO (11:45)
[2019-07-29] MEDS ORDERED: DULCOLAX5 MG PO (11:48)
[2019-07-29] MEDS ORDERED: HYDRALAZINE HCL25 MG PO (11:49)
[2019-07-29 12:00] LABS: BASOPHILS 0.2 % (0-2); EOSINOPHILS 2.2 % (0-7); HEMATOCRIT 37.4 % (42.0-54.0); HEMOGLOBIN 12.1 g/dL (13.5-17.5); IMMATURE GRANULOCYTES 0.2 % (0-5); LYMPHOCYTES 30.7 % (15-50); MCH 29.9 pg (26.0-34.0); MCHC 32.4 g/dL (31.0-37.0); MCV 92.3 fL (80.0-100.0); MEAN PLATELET VOLUME 10.4 fL (7.4-10.4); MONOCYTES 10.7 % (2-11); PLATELET COUNT 140 10x3/uL (130-400); RBC 4.05 10x6/uL (4.20-6.10); RDW 14.6 % (11.5-14.5); WBC 4.6 10x3/uL (4.8-10.8)
[2019-07-29 12:05] LABS: ANION GAP 10.4 mmol/L (8-16); CALCIUM 9.5 mg/dL (8.5-10.1); CHOL - HDL RATIO 2.4 ratio (2.3-4.9); CREATININE - SERUM 2.7 mg/dL (0.6-1.3); LDL-HDL RATIO 1.2 ratio (1.5-3.5); POTASSIUM - SERUM 4.4 mmol/L (3.5-5.1)
[2019-07-29 12:16] LABS: INR 1.08 (0.85-1.17); PROTIME 13.5 SECONDS (11.6-15.0)
--- NOTE | 2019-07-29 14:35 | NUR ---
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 PT DROWSY, DENIES ANY C/O PAIN OR NAUSEA. DRESSING CDI TO RIGHT GROIN, AREA IS SOFT AND NONTENDER. BANDAID CDI TO RIGHT WRIST. PT INSTRUCTED TO KEEP HEAD FLAT TO PILLOW AND RIGHT LEG STRAIGHT AND VERBALIZES UNDERSTANDING. FAMILY AT BEDSIDE, DR COLLAZO HAS ROUNDED ON PT.
--- NOTE | 2019-07-29 14:57 | NUR ---
DRESSINGS TO RIGHT GROIN AND RIGHT WRIST ARE CDI, ALL PULSES PALPABLE. PT IS ALERT, DENIES ANY C/O PAIN OR NAUSEA. VSS. HOB IS FLAT, CALL LIGHT IN REACH.
--- NOTE | 2019-07-29 15:21 | NUR ---
PT SLEEPING INTERMITTENTLY, DRESSINGS CDI, PULSES PALAPABLE. HOB IS FLAT, FAMILY AT BEDSIDE, CALL LIGHT IN REACH.
--- NOTE | 2019-07-29 16:03 | NUR ---
HOB ELEVATED 30 DEGREES, SANDWICH AND PO FLUIDS SERVED. DRESSING IS CDI TO RIGHT GROIN, AREA IS SOFT AND NONTENDER. BANDAID CDI TO RIGHT WRIST. PEDAL AND RADIAL PULSES PALPABLE. VSS, FAMILY AT BEDSIDE.
--- NOTE | 2019-07-29 16:32 | NUR ---
1620 HOB FULLY ELEVATED, DRESSING REMAINS CDI TO RIGHT GROIN, AREA IS SOFT AND NONTENDER. PEDAL PULSES PALPABLE. VSS. DC INSTRUCTIONS REVIEWED WITH PT, SPOUSE AND DAUGHTER WHO VERBALIZE UNDERSTANDING. WRITTEN COPIES PROVIDED. PT NICOLE SANDWICH WITH NO C/O NAUSEA.
--- NOTE | 2019-07-29 17:00 | NUR ---
DRESSING REMAINS CDI TO RIGHT GROIN, AREA IS SOFT AND NONTENDER. PEDAL PULSES PALPABLE. PT IS ALERT AND DENIES ANY C/O. IV HAS BEEN DC'D WITH CATH INTACT AND PT HAS DRESSED FOR DC TO HOEM WITH ASSIST. PT HAS VOIDED 750 CC CLEAR YELLOW URINE TO URINAL. PT ESCORTED TO PRIVATE AUTO VIA WC BY NURSE WITH DAUGHTER DRIVING HIM HOME. PT HAS ALL PERSONAL BELONGINGS AND DC INSTRUCTIONS AT TIME OF DISCHARGE.
== END 2019-07-29 17:00 | disposition home or self-care (01) ==
LOC: D.CATH 11:03 → D.CLR 11:36 → D.CATH 13:00
PROVIDERS: ATTEND Internal Medicine Cardiovascular Disease
DX: I25.110 Atherosclerotic heart disease of native coronary artery with unstable angina pectoris (principal); R94.30 Abnormal result of cardiovascular function study, unspecified

== ENCOUNTER → 2019-08-13 12:26 | Outpatient (CLI) | payer MEDICARE, OTHER ==
[2019-07-29 11:43] VITALS: BMI 29.9
[~2019-08-13 12:26] MED LIST changes: +COLCRYS0.6 MG PO; +COUMADIN2.5 MG PO; +DULCOLAX5 MG PO; +FLOMAX0.4 MG PO; +GABAPENTIN100 MG PO; +HUMULIN R100 U/ML SC; +HYDRALAZINE HCL25 MG PO; +HYDROCHLOROTHIA25 MG PO; +IPRAT-ALBUT 0.5-3 ML UPD; +LOPRESSOR25 MG PO; +MIRALAX17 GM PO; +PERCOCET 10-321 EAC1 PO; +PROTONIX40 MG PO; +PULMICORT0.5 MG/21 UPD; +Retacrit SC; +SYNTHROID100 MCG PO
== END | disposition home or self-care (01) ==
LOC: D.US 07-22 11:00
PROVIDERS: ATTEND Internal Medicine Cardiovascular Disease
DX: G45.9 Transient cerebral ischemic attack, unspecified (principal); R53.1 Weakness

== ENCOUNTER → 2019-08-19 13:11 | Outpatient (CLI) | payer MEDICARE, OTHER ==
[2019-07-29 11:43] VITALS: BMI 29.9
== END | disposition home or self-care (01) ==
LOC: D.CT 13:11
PROVIDERS: ATTEND Thoracic Surgery (Cardiothoracic Vascular Surgery)
DX: Z85.110 Personal history of malignant carcinoid tumor of bronchus and lung (principal)

== ENCOUNTER → 2019-08-20 10:08 | Outpatient (CLI) | payer MEDICARE, OTHER ==
[2019-07-29 11:43] VITALS: BMI 29.9
[2019-08-20 10:57] LABS: INR 1.41 (0.85-1.17); PROTIME 16.7 SECONDS (11.6-15.0)
== END | disposition home or self-care (01) ==
LOC: D.LAB 10:08
PROVIDERS: ATTEND Thoracic Surgery (Cardiothoracic Vascular Surgery)
DX: Z79.01 Long term (current) use of anticoagulants (principal)

== ENCOUNTER 2019-08-21 15:12 | Inpatient (IN) | payer MEDICARE, OTHER ==
[~2019-08-21] VITALS: Ht 177.8 cm; Wt 99.7 kg
[~2019-08-21 15:12] MED LIST changes: -COLCRYS0.6 MG PO; -FLOMAX0.4 MG PO; -GABAPENTIN100 MG PO; -HUMULIN R100 U/ML SC; -HYDROCHLOROTHIA25 MG PO; -IPRAT-ALBUT 0.5-3 ML UPD; -LOPRESSOR25 MG PO; -MIRALAX17 GM PO; -PERCOCET 10-321 EAC1 PO; -PULMICORT0.5 MG/21 UPD; -Retacrit SC
[2019-08-21] MEDS ORDERED: GABAPENTIN100 MG PO (15:32)
[2019-08-21] MEDS ORDERED: HYDROCHLOROTHIA25 MG PO (15:33)
[2019-08-21] MEDS ORDERED: COLCRYS0.6 MG PO (16:02)
[2019-08-21 17:18] LABS: BASOPHILS 0.2 % (0-2); EOSINOPHILS 0.7 % (0-7); HEMATOCRIT 39.9 % (42.0-54.0); HEMOGLOBIN 12.7 g/dL (13.5-17.5); IMMATURE GRANULOCYTES 0.2 % (0-5); LYMPHOCYTES 28.3 % (15-50); MCH 30.2 pg (26.0-34.0); MCHC 31.8 g/dL (31.0-37.0); MCV 94.8 fL (80.0-100.0); MEAN PLATELET VOLUME 10.3 fL (7.4-10.4); MONOCYTES 11.4 % (2-11); NEUTROPHILS 59.2 % (40-80); PLATELET COUNT 156 10x3/uL (130-400); RBC 4.21 10x6/uL (4.20-6.10); RDW 14.6 % (11.5-14.5); WBC 4.1 10x3/uL (4.8-10.8)
[2019-08-21 17:27] LABS: APTT 25.9 SECONDS (22.8-39.4); INR 1.15 (0.85-1.17); PROTIME 14.2 SECONDS (11.6-15.0)
[2019-08-21 17:35] LABS: APPEARANCE CLEAR (CLEAR); BILIRUBIN NEGATIVE (NEGATIVE); COLOR YELLOW (YELLOW); GLUCOSE NEGATIVE (NEGATIVE); KETONE NEGATIVE (NEGATIVE); NITRITE NEGATIVE (NEGATIVE); PROTEIN NEGATIVE (NEGATIVE); UROBILINOGEN NORMAL (NORMAL)
[2019-08-21 17:42] LABS: ALBUMIN 3.8 g/dL (3.4-5.0); ANION GAP 8.6 mmol/L (8-16); BILIRUBIN - TOTAL 0.62 mg/dL (0.2-1.3); CALCIUM 9.3 mg/dL (8.5-10.1); CARBON DIOXIDE 32.6 mmol/L (21.0-32.0); CREATININE - SERUM 1.9 mg/dL (0.6-1.3); PHOSPHOROUS 3.2 mg/dL (2.5-4.9); POTASSIUM - SERUM 4.2 mmol/L (3.5-5.1); PROTEIN - SERUM 7.5 g/dL (6.4-8.2); T4 THYROXIN - FREE 1.52 ng/dL (0.76-1.46); THYROID STIMULATING HORMONE 1.47 uIU/mL (0.36-3.74); URIC ACID 4.8 mg/dL (2.6-7.2)
[2019-08-22] VITALS (46 sets, daily range): BP systolic 105–159; BP diastolic 41–79; BMI 29.9; BMI 30.7
[2019-08-22 12:37] LABS: INR 1.67 (0.85-1.17)
--- NOTE | 2019-08-22 13:45 | NUR ---
Arrived to unit at 1335 via bed. ETT 8.0, 23 AT THE LIP. SIMV R-14, TV 550, FIO2 40%, PS 10, PEEP 5. RIJ CVL dressing c/d/i with plasmolyte at 100ml/hr. Connected to ICU monitors. TPM in place. AAI R-80, AMA 10 Sensitivity 0.5. Right jarvis secured in place with wrist protector. Zeroed on arrival. Wrist restraints applied on arrival per orders. Midsternal incistion with dressing c/d/i. Substernal CT x 2 connected to 20cm suction. No air leak noted. Yonatan drain in place. Beckham catheter in place with yellow urine noted. RLE harvest sites wrapped in coban dressing. CONNIE hose and SCD on LLE. Safety measures in place. Bed in low position, side rails up x 2. Nurse at bedside. Will continue to monitor closely.
--- NOTE | 2019-08-22 14:56 | NUR ---
DR. FLORES ORDERED 1FFP TO BE TRANSFUSED. INR RECHECK AFTER TRANSFUSION.
--- NOTE | 2019-08-22 15:41 | NUR ---
UNIT OF FFP INITIATED AT THIS TIME PER DR. FLORES'S ORDERS.
[2019-08-22 16:31] LABS: INR 1.28 (0.85-1.17); PROTIME 15.5 SECONDS (11.6-15.0)
--- NOTE | 2019-08-22 16:34 | NUR ---
INR 1.28 after [address] Munoz notified. No action needed at this time. Will continue to monitor.
--- NOTE | 2019-08-22 17:02 | NUR ---
ARRIVED TO UNIT AT 1335 VIA BED. ETT 8.0 23 AT THE LIP. SIMV R-14, TV 550, FIO2 40%, PS 10, PEEP 5. RIJ CVL WITH PLASMOLYTE AT 100ML/HR. CONNECTED TO ICU TELEMETRY. RIGHT RADIAL A-LINE IN PLACE. ZEREOD ON ARRIVAL. WRIST PROTECTOR IN PLACE. WRIST RESTRAINTS APPLIED UPON ARRIVAL. MIDSTERNAL INCISION WITH DRESSING C/D/I. SUBSTERNAL CT X 2 CONNECTED TO 20CM SUCTION. NO AIR LEAK NOTED. LEFT CRISTIAN DRAIN IN PLACE WITH BLOODY DRAINAGE NOTED. FARNSWORTH CATHETER NOTED WITH YELLOW URINE. RLE HARVEST SITES WRAPPED IN COBAN DRESSING. CONNIE HOSE AND SCD ON LLE. BED IN LOW POSITION. NURSE AT BEDSIDE. WILL CONTINUE TO MONITOR CLOSELY.
--- NOTE | 2019-08-22 17:15 | NUR ---
Dr. Patel notified of ABG results after CPAP trial. Okay to extubate per Dr. Patel. ABG recheck in one hour.
--- NOTE | 2019-08-22 17:19 | NUR ---
Extubated at 1719. Placed on 4L of O2 via NC.
--- NOTE | 2019-08-22 17:45 | NUR ---
Rates pain 10/10 at incision site. Morphine 2mg IV given per orders.
--- NOTE | 2019-08-22 18:39 | NUR ---
DR. FLORES NOTIFIED OF ABG RESULTS AND URINE OUTPUT BEING 70ML IN LAST TWO HRS. NO ACTION NEEDED AT THIS TIME.
--- NOTE | 2019-08-22 18:54 | NUR ---
RATES PAIN 8/10 AT INCISION SITE. PERCOCET 10MG TAB GIVEN PER ORDERS.
--- NOTE | 2019-08-22 20:00 | NUR ---
FAMILY AT BEDSIDE, UPDATE GIVEN, QUESTIONS ANSWERED, NO FURTHER AT THIS TIME, WILL CONTINUE TO MONITOR
--- NOTE | 2019-08-22 21:00 | NUR ---
MEDS GIVEN PER MAR/ORDERS, NO ACUTE S/S OF DISTRESS NOTED, VSS, PACED RHYTHM @ 90 bpm ON CM, WILL CONTINUE TO MONITOR
--- NOTE | 2019-08-22 23:00 | NUR ---
REASSESSMENT COMPLETE SEE FLOW SHEET, PT ASSISTED TO DANGLE AT BEDSIDE PER ORDERS, TOLLERATED WELL, NO ACUTE S/S OF DISTRESS, VSS, PACED RHYTHM ON CM
[2019-08-23] VITALS (52 sets, daily range): BP systolic 93–154; BP diastolic 43–75; Ht 177.8 cm; Wt 99.7 kg
--- NOTE | 2019-08-23 03:00 | NUR ---
REASSESSMENT COMPLETE SEE FLOW SHEET, NO ACUTE CHANGE NOTED, VSS, REPOSITIONED FOR COMFORT, HOB ELEVATED, WILL CONTINUE TO MONITOR
[2019-08-23 05:36] LABS: MCH 30.5 pg (26.0-34.0); MCHC 31.8 g/dL (31.0-37.0); MEAN PLATELET VOLUME 10.4 fL (7.4-10.4); RDW 15.3 % (11.5-14.5)
[2019-08-23 05:40] LABS: HEMATOCRIT 26.1 % (42.0-54.0); HEMOGLOBIN 8.3 g/dL (13.5-17.5); RBC 2.72 10x6/uL (4.20-6.10)
[2019-08-23 05:50] LABS: ALBUMIN 3.1 g/dL (3.4-5.0); ANION GAP 10.9 mmol/L (8-16); BILIRUBIN - TOTAL 0.71 mg/dL (0.2-1.3); CALCIUM 7.7 mg/dL (8.5-10.1); CARBON DIOXIDE 27.4 mmol/L (21.0-32.0); CREATININE - SERUM 2.1 mg/dL (0.6-1.3); POTASSIUM - SERUM 4.3 mmol/L (3.5-5.1); PROTEIN - SERUM 5.7 g/dL (6.4-8.2)
--- NOTE | 2019-08-23 06:00 | NUR ---
CHG BATH AND COMPLETE LINEN CHANGE, YELLOW GOWN PLACED, PT ASSISTED TO BEDSIDE CHAIR, TOLLERATED MOVEMENT WELL, VSS, NSR ON CM, ICE AND WATER GIVEN PER REQUEST, DAUGHTER AT BEDSIDE
--- NOTE | 2019-08-23 07:42 | OP ---
PATIENT NAME: DOUGLASRAGHAVENDRA ARSMTRONG GARY MEDICAL RECORD: [id number] :44 LOCATION:[facility] [id number] ADMISSION DATE:08/22/19 SURGEON: HARDY FLORES MD DATE OF OPERATION: 08/22/2019 SURGEON: Hardy Flores MD BIOMETRIC SCREENER: VICTORIA Stephenson MD OPERATION PERFORMED: 1. Coronary artery bypass graft times 3 (left internal mammary artery to LAD, reverse saphenous vein graft from aorta to first diagonal, aorta to posterolateral branch of circumflex coronary artery). 2. Endoscopic saphenous vein harvest. PREOPERATIVE DIAGNOSIS: Coronary artery disease. POSTOPERATIVE DIAGNOSIS: Coronary artery disease. ANESTHESIA: General endotracheal anesthesia. ESTIMATED BLOOD LOSS: Total cardiopulmonary bypass with Cell Saver retransfusion. COMPLICATIONS: None. SPECIMENS: Internal mammary artery lymph node for permanent specimen. CONDITION: Stable. DISPOSITION: CV ICU. OPERATIVE FINDINGS: 1. 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 2. Varicose vein from the mid thigh on the right and evidence of previous phlebitis, open bridging harvest in addition to the endoscopic harvest. 3. 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 4. History of chronic kidney disease, baseline creatinine 2.7. 5. Circumflex dominant system and anterior proximal ascending aortic plaque. 6. Good coiled left internal mammary artery, the LAD was 2.0-mm vessel. 7. Thin walled vein graft used for the first diagonal vessel 1.5-mm vessel with moderate disease. 8. Posterolateral posterior descending branch of the circumflex coronary artery was a 2.0-mm vessel. 9. Transesophageal echocardiography with no significant aortic insufficiency or aortic stenosis, mild mitral regurgitation, EF 50% before and after cardiopulmonary bypass. OPERATIVE INDICATION: Coronary artery disease. OPERATIVE SUMMARY IN DETAIL: The patient was brought to the operating suite. General anesthesia was obtained. The patient was prepped and draped. Greater saphenous vein harvested in the right lower extremity. Side branches were divided by electrocautery and the vessels ligated proximally and distally and OPERATIVE REPORT [id number] RAGHAVENDRA COLE then bridging incisions were made, side branched were divided. The vessel was removed, repaired. The educational assistant surgeon was Dr. Stephenson, who repaired the vessel and took an open section of vein near the knee. Later, the leg was closed in 2 layers. Median sternotomy incision was made. Subcutaneous tissue was divided with electrocautery. Sternum was divided with a saw. Left hemisternum was elevated. Left pleural cavity was entered. Left internal mammary vein was taken down as a pedicle graft and internal mammary. Lymph node was sent for permanent specimen. Sternal retractor was placed. Pericardium was opened. Heparin was given. Aorta was cannulated. Dual stage venous cannula was inserted. The internal mammary was clipped distally and made ready for anastomosis. Activated clotting time was appropriately elevated. The patient was placed on cardiopulmonary bypass. Sites for distal anastomosis were selected. Antegrade cardioplegia cannula was inserted. The patient's temperature drifted downwardly. Crossclamp was placed. Cardioplegia given antegrade and this repeated at 15 minute intervals including down the completed vein grafts. Distal anastomoses were performed in standard technique. Proximal anastomosis with single cross-clamp technique. The aortic root de-aired by removing the cross clamp, deairing the root, tying the proximal anastomosis during the vein graft and restoring the flow. Proximal and distal anastomotic sites were inspected for bleeding. The patient resumed a spontaneous rhythm, fully rewarmed, weaned from cardiopulmonary bypass and stable. The patient was decannulated. The cannula sites were oversewn. Protamine was given. Thorough irrigation was undertaken. Drains were placed in the mediastinum and left pleural cavity. Atrial and ventricular pacing wires were placed. Later, the patient was paced due to moderate hypotension, atrial only. Pericardial fat was loosely reapproximated. Left chest was evacuated and irrigated. Internal mammary harvest site was made hemostatic. Sternum was closed with wires. Fascia was closed. Subcutaneous tissue was closed. Skin was closed. Dermabond was placed. The needle and sponge counts reported as correct and the patient was taken to ICU in stable condition. TRANSINT:[id number] Voice Confirmation ID: [id number] DOCUMENT ID: [id number] HARDY FLORES MD at 0742 CC: EMERALD COLLAZO M.D. and BABAK CHICAS MD [phone] DICTATION DATE: 08/22/19 1504 ANIMAL HUSBANDRY TECHNICIAN: 08/22/19 1527 ADM IN [place] [address] [place] [address]
[2019-08-23 07:53] LABS: % SATURATION 13 % (15-55); IRON 23 ug/dl (35-150); TOTAL IRON BIND CAPACITY 172 ug/dl (260-445); UNSAT IRON BIND CAPACITY 149 ug/dl (150-375)
[2019-08-23 08:20] LABS: THYROID STIMULATING HORMONE 1.06 uIU/mL (0.36-3.74)
--- NOTE | 2019-08-23 10:24 | NUR ---
0720: SEE FLOWSHEET FOR ASSESSMENT. NO DISTRESS NOTED. 0725: NTG GTT DC'D. 0730: DR. FLORES HERE. NEW ORDERS REC'D. 0815: R RADIAL ART LINE DC'D. MANUAL PRESSURE HELD X 2 MIN. DRESSED WITH 2X2 AND TEGADERM.
--- NOTE | 2019-08-23 17:38 | CN ---
PATIENT NAME:RAGHAVENDRA COLE MEDICAL RECORD: [id number] : 44 LOCATION:[id number] ADMIT DATE: 08/22/19 ACCOUNT: [id number] CONSULTING PHYSICIAN: SOCRATES CROW MD REFERRING PHYSICIAN: SHO FLORES MD DATE OF CONSULTATION: 08/22/2019 Medical Management REQUESTING PHYSICIAN: Dr. Flores for medical management. HISTORY OF PRESENT ILLNESS: This is a 78-year-old white male who was admitted to the hospital by Dr. Flores for high-grade coronary artery disease in at least 3 vessels. He underwent a coronary artery bypass grafting today of 3 vessels and I am his primary care physician and have been consulted for medical management. PAST MEDICAL HISTORY: The patient has pulmonary carcinoid, hypertension, sleep apnea, chronic kidney disease followed by Dr. Carlson with a baseline around 1.7, hypothyroidism, hypercoagulable state, COPD, gout, spina bifida, peripheral neuropathy, osteoarthritis, COPD, and coronary artery disease. PAST MEDICAL AND SURGICAL HISTORY: He had right middle and right lower lobectomies by Dr. Stephenson a few years ago. He has had a carotid endarterectomy. He has had a TURP. He has had bilateral inguinal hernia repairs and now a 3-vessel coronary artery bypass graft. ALLERGIES: HE HAS BEEN REMARKED THAT NEPHROLOGY DOES NOT WANT HIM TO TAKE ANY IV OR IODINE CONTAINING DYE. HOME MEDICATIONS: Include Zyrtec 10 mg a day p.r.n. allergies, ProAir HFA 2 puffs q.6 hours p.r.n. wheeze, Coumadin 5 mg on all days except Tuesdays and when he takes 2.5 mg, pravastatin 20 mg once a day, amlodipine 10 mg once a day, clonidine 0.1 mg for elevated blood pressure, aspirin 81 mg a day, gabapentin 100 mg twice a day, lorazepam 0.5 mg t.i.d. p.r.n. anxiety, HCTZ 25 mg p.r.n. significant edema, potassium 99 mg once a day p.r.n. leg cramps, Symbicort 160/4.5 two puffs b.i.d., Singulair 10 mg at bedtime, Dulcolax p.r.n. constipation, calcium carbonate 500 mg t.i.d. with meals, Mag-Ox 400 mg once a day, Protonix 40 mg once a day, levothyroxine 100 mcg once a day, vitamin D 4000 units daily, folic acid 1 mg a day, allopurinol 100 mg 2 a day, colchicine p.r.n. gout, and CoQ10 once a day. SOCIAL HISTORY: Retired, . HABITS: Former smoker, no alcohol or drugs. FAMILY HISTORY: Father at 44. He had emphysema. One brother with lung disease. REVIEW OF SYSTEMS: GENERAL: No major weight changes. HEENT: He has some seasonal allergies. RESPIRATORY: He was seen by Dr. Cordero recently, he has COPD. CARDIAC: Angiogram late last month for chest pain showing high-grade disease. GASTROINTESTINAL: He has reflux/heartburn. CONSULT REPORT [id number] RAGHAVENDRA COLE GENITOURINARY: He has had a TURP. No significant problems now. MUSCULOSKELETAL: Has history of arthritis. He has spina bifida occulta. NEUROLOGIC: No seizures. No migraines. PSYCHIATRIC: He has some anxiety. PHYSICAL EXAMINATION: VITAL SIGNS: Temperature 97.5, pulse 79, respirations 14, blood pressure 117/47, O2 sat was 97%. He was seen at same time as his with 2 children came into the room. He was still on ventilator at this time. HEENT: Grossly within normal limits. NECK: Supple. HEART: Regular rate and rhythm. LUNGS: Coarse airway sounds. ABDOMEN: Soft. EXTREMITIES: No edema. ASSESSMENT: 1. Hypertension. 2. Coronary artery disease status post 3-vessel coronary artery bypass grafting. 3. Hypercoagulable state. 4. Lung disease. 5. Carcinoid status post right middle lobe and right lower lobectomies. PLAN: We will follow along during his hospitalization. Nephrology has been consulted as well. Other tests and procedures as warranted. TRANSINT:[id number] Voice Confirmation ID: [id number] DOCUMENT ID: [id number] SOCRATES CROW MD at 1738 CC: [id number] DICTATION DATE: 08/22/191743 DIRECTOR BIOINFORMATICS: 08/22/19 9503 ADM IN [place] [id number] [place] [address]
--- NOTE | 2019-08-23 19:00 | NUR ---
REPORT RECEIVED. INITIAL ASSESSMENT COMPLETE. ALERT AND ORIENTED FOLLOWS COMMANDS EQUAL STRENGTH. RESP EVEN AND NONLABORED O2 PER NC. BILATERAL BREATH SOUNDS CLEAR. CM READING SR WITHOUT ECTOPY AT THIS TIME ALARMS ON AND AUDIBLE. PT DENIES PAIN SKIN W/D DRESSING CDI TO CHEST. IV SALINE LOCK. BED LOW POSITION SIDE RAILS UP TIMES 3 FOR BED MOBILITY AND SAFETY CALL LIGHT IN REACH. CPOC
--- NOTE | 2019-08-23 19:13 | MORECARE ---
CASE MANAGEMENT DISCHARGE SUMMARY PATIENT: RAGHAVENDRA COLE GARY UNIT: [id number] ADM DATE: 08/22/19 AGE: 78 : 42 SEX: M [facility] AUTHOR: ALEXANDRO GARCIA PHYSICIAN: REFERRING PHYSICIAN: SHO FLORES MD DATE OF SERVICE: 08/23/19 Discharge Plan Patient Name: RAGHAVENDRA COLE [facility] [facility] 1940 Planned Disposition: Anticipated Discharge Date: Discharge Date: Expected LOS: Initial Reviewer: [email or web address] Initial Review Date: 08/23/2019 Generated: 08/23/19 8:12 pm DCPIA - Discharge Planning Initial Assessment Updated by [email or web address]: Cassie Pedro on 08/23/19 7:12 pm * Is the patient Alert and Oriented? Yes * How many steps to enter\exit or inside your home? 2 - ramp * PCP TRISTIN * Pharmacy [facility] * Preadmission Environment Home with Family * ADLs Independent * Other Equipment WALKER, CPAP, HOME 02 * List name and contact numbers for known caregivers / representatives who currently or will assist patient after discharge: GIACOMO COLE - SPOUSE- [phone] JESUS KIRBY - DAUGHTER- [phone] MELLISA COLE - SON - [phone] AIDA COLE - SON - [phone] BARTOLO - DAUGHTER - [phone] * Verbal permission to speak to the caregivers and representatives has been obtained from the patient. Yes * Community resources currently utilized None * Additional services required to return to the preadmission environment? No * Can the patient safely return to the preadmission environment? Yes * Has this patient been hospitalized within the prior 30 days at any hospital? No Patient Name: RAGHAVENDRA COLE Page 62500 at 1913 All edits/amendments must be made on the electronic document DICTATION DATE: 08/23/191911 TENDER COORDINATOR: SANGEETHA 08/23/191911 RPT#: [id number] DC DATE: STATUS: ADM IN [facility] [address] [place] [address] END OF REPORT
--- NOTE | 2019-08-23 19:25 | MORECARE ---
CASE MANAGEMENT DISCHARGE SUMMARY PATIENT: RAGHAVENDRA COLE GARY UNIT: [id number] ADM DATE: 08/22/19 AGE: 78 : 42 SEX: M [facility]ED: D[facility] AUTHOR: RADHA,DOC PHYSICIAN: REFERRING PHYSICIAN: SHO FLORES MD DATE OF SERVICE: 08/23/19 Discharge Plan Patient Name: RAHGAVENDRA COLE Facility: [facility]:[place] : 1940 Planned Disposition: Anticipated Discharge Date: Discharge Date: Expected LOS: Initial Reviewer: [email or web address] Initial Review Date: 08/23/2019 Generated: 08/23/19 8:25 pm Comments DCP- Discharge Planning Updated by [email or web address]: Cassie Pedro on 08/23/19 6:[address] Patient Name: RAGHAVENDRA COLE Admission Status: Urgent Accout number: [id number] Admission Date: 08-22-2019 : 1940 Admission Diagnosis: Attending: SHO FLORES Current LOS: 1 Anticipated DC Date: Planned Disposition: Primary Insurance: MEDICARE A & B Discharge Planning Comments: CM met with patient at bedside after explaining CM role and obtaining verbal consent. Patient lives at home with his Selina where he is independent with his care and plans to return there upon discharge. Patient feels this would be a safe discharge. CM discussed availability / needs of home health and medical equipment. Patient denies any discharge needs at this time. Patient states he will have his family drive him home upon discharge. Patient has home 02 he wears at night with [employer]. He also has a CPAP but he doesn't wear it. CM will continue to follow and assist as needed with discharge planning / needs. Composite Technician: Cassie Pedro DCPIA - Discharge Planning Initial Assessment Updated by [email or web address]: Cassie Pedro on 08/23/19 7:12 pm * Is the patient Alert and Oriented? Yes * How many steps to enter\exit or inside your home? 2 - ramp * PCP TRISTIN * Pharmacy [facility] [place] * Preadmission Environment Home with Family * ADLs Independent * Other Equipment WALKER, CPAP, HOME 02 * List name and contact numbers for known caregivers / representatives who currently or will assist patient after discharge: GIACOMO COLE - SPOUSE- [phone] JESUS KIRBY - DAUGHTER- [phone] MELLISA COLE - SON - [phone] AIDA COLE - SON - [phone] BARTOLO - DAUGHTER - [phone] * Verbal permission to speak to the caregivers and representatives has been obtained from the patient. Yes * Community resources currently utilized None * Additional services required to return to the preadmission environment? No * Can the patient safely return to the preadmission environment? Yes * Has this patient been hospitalized within the prior 30 days at any hospital? No Last DP export: 08/23/19 6:13 Patient Name: RAGHAVENDRA COLE Page 77604 at 1925 All edits/amendments must be made on the electronic document DICTATION DATE: 08/23/191924 SCIENCE MANAGER: SANGEETHA 08/23/191924 RPT#: [id number] DC DATE: STATUS: ADM IN [facility] [address] [place] [address] END OF REPORT
--- NOTE | 2019-08-23 19:45 | NUR ---
ANSWERED PTS CALL LIGHT REQUESTING TV CHANGED TO [employer]. INFORMED NOT SURE IF [employer] AVAILABLE TV GUIDE LISTING GIVEN TO PT NO C/O AT THIS TIME CPOC
--- NOTE | 2019-08-23 20:00 | NUR ---
PTS DAUGHTER AT BEDSIDE FOR VISITATION UPDATE GIVEN. VSS WILL CONTINUE TO MONITOR
--- NOTE | 2019-08-23 21:30 | NUR ---
ANSWERED PTS CALL LIGHT C/O PAIN MEDICATED PER PRN ORDERS SEE EMAR. DAUGHTER AT BEDSIDE VSS NO S/S OF DISTRESS WILL CONTINUE TO MONITOR
--- NOTE | 2019-08-23 23:00 | NUR ---
REASSESSMENT MADE VSS NO C/O AT THIS TIME CPOC
[2019-08-24] VITALS (24 sets, daily range): BP systolic 105–141; BP diastolic 53–71
--- NOTE | 2019-08-24 02:05 | NUR ---
IN CHECKING ON PT STILL AWAKE ASKED IF HE WAS HURTING AGAIN HE STATED YES JUST CANT GET COMFORTABLE GENERALIZED ACHE FROM BEING IN BED REQUESTS PAIN MED SEE EMAR VSS CL IN REACH DAUGHTER STILL AT BEDSIDE
--- NOTE | 2019-08-24 03:00 | NUR ---
REASSESSMENT COMPLETE SEE FLOWSHEET FOR COMPLETE DETAIL. PT STATES PAIN IMPROVED AFTER PAIN MED. NO OTHER CHANGES VSS PT HAS STARTED TO PASS GAS DAUGHTER REMAINS AT BEDSIDE CL IN REACH CPOC
--- NOTE | 2019-08-24 04:40 | NUR ---
RT AT BEDSIDE DOING EKG
--- NOTE | 2019-08-24 04:56 | NUR ---
ANSWERED PTS CALL LIGHT WANTING WATER FRESH CUP OF ICE WATER GIVEN TO PT VSS CPOC
--- NOTE | 2019-08-24 05:19 | NUR ---
RADIOLOGY HERE FOR PORTABLE CHEST XRAY
--- NOTE | 2019-08-24 06:30 | NUR ---
COMPLETE CHG BATH AND COMPLETE LINEN CHANGE. ASSISTED PT TO CHAIR. PT VERY STIFF TOOK TWO STAFF TO ASSIST UP TO CHAIR.
[2019-08-24 06:35] LABS: HEMATOCRIT 26.3 % (42.0-54.0); HEMOGLOBIN 8.2 g/dL (13.5-17.5); MCH 30.1 pg (26.0-34.0); MCHC 31.2 g/dL (31.0-37.0); MCV 96.7 fL (80.0-100.0); MEAN PLATELET VOLUME 10.4 fL (7.4-10.4); RBC 2.72 10x6/uL (4.20-6.10); RDW 15.4 % (11.5-14.5)
[2019-08-24 06:55] LABS: ALBUMIN 2.8 g/dL (3.4-5.0); ANION GAP 9.5 mmol/L (8-16); BILIRUBIN - TOTAL 0.88 mg/dL (0.2-1.3); CALCIUM 7.9 mg/dL (8.5-10.1); CARBON DIOXIDE 28.6 mmol/L (21.0-32.0); CREATININE - SERUM 1.7 mg/dL (0.6-1.3); POTASSIUM - SERUM 4.1 mmol/L (3.5-5.1); PROTEIN - SERUM 5.7 g/dL (6.4-8.2)
--- NOTE | 2019-08-24 13:40 | NUR ---
1330: HAS NOT VOIDED SINCE FARNSWORTH CATH DC'D 08/23/19 PM. HAS REC'D LASIX TODAY. HAS BEEN TRYING TO VOID WITHOUT SUCCESS FOR PAST 30 MIN. IN AND OUT CATH DONE WITH RETURN 1000CC CLEAR IRVING URINE.
--- NOTE | 2019-08-24 18:51 | NUR ---
REMAINS UNABLE TO VOID. 16FR FARNSWORTH INSERTED USING ASEPTIC TECHNIQUE WITH IMMEDIATE RETURN > 500CC CLEAR YELLOW URINE.
--- NOTE | 2019-08-24 19:00 | NUR ---
PT AWAKE, VOICES NEEDS, O2 @ 3L VIA N/C, RIGHT IJ INTACT AND SL, CRISTIAN DRAIN INTACT AND COMPRESSED, FARNSWORHT PATENT TO BSD WITH CLEAR YELLOW URINE, PT WATCHING TV WITH NO C/O
--- NOTE | 2019-08-24 21:00 | NUR ---
FAMILY PRESENT @ BEDSIDE, TAKES PO MEDS WITHOUT DIFFICULTY, VITALS STABLE
--- NOTE | 2019-08-24 23:00 | NUR ---
PT AWAKE IN BED WATCHING TV WITH NO C/O, WILL CONT TO MONITOR
[2019-08-25] VITALS (24 sets, daily range): BP systolic 105–150; BP diastolic 52–82
--- NOTE | 2019-08-25 01:00 | NUR ---
PT SLEEPING WITH NO DISTRESS, VITALS STABLE
--- NOTE | 2019-08-25 03:00 | NUR ---
PT ASLEEP WITH NO DISTRESS NOTED, VITALS STABLE, WILL CONT TO MONITOR
--- NOTE | 2019-08-25 05:00 | NUR ---
PT BATHED, UP YO CHAIR WITH ASSIST, TOLERATED WELL WITH NO C/O
[2019-08-25 05:08] LABS: HEMATOCRIT 27.2 % (42.0-54.0); HEMOGLOBIN 8.6 g/dL (13.5-17.5); MCH 30.1 pg (26.0-34.0); MCHC 31.6 g/dL (31.0-37.0); MCV 95.1 fL (80.0-100.0); MEAN PLATELET VOLUME 10.3 fL (7.4-10.4); RBC 2.86 10x6/uL (4.20-6.10); RDW 14.9 % (11.5-14.5)
[2019-08-25 05:15] LABS: WBC 6.1 10x3/uL (4.8-10.8)
[2019-08-25 05:22] LABS: ALBUMIN 2.7 g/dL (3.4-5.0); ANION GAP 8.7 mmol/L (8-16); BILIRUBIN - TOTAL 0.63 mg/dL (0.2-1.3); CALCIUM 8.3 mg/dL (8.5-10.1); CARBON DIOXIDE 29.9 mmol/L (21.0-32.0); CREATININE - SERUM 1.6 mg/dL (0.6-1.3); POTASSIUM - SERUM 3.6 mmol/L (3.5-5.1); PROTEIN - SERUM 5.9 g/dL (6.4-8.2)
--- NOTE | 2019-08-25 19:00 | NUR ---
REPORT RECEIVED AT BEDSIDE, SHIFT ASSESSMENT COMPLETE PER FLOW SHEET, PTR AAOx4, DENIES PAIN OR NEEDS, MIDSTERNAL AND SUBSTERNAL DRSG'S C/D/I, CRISTIAN DRAIN COMPRESSED, FARNSWORTH CATH TO GRAVITY DRAIN, SCD AND CONNIE ROMAN BLE, HOB ELEVATED, FALL PRECAUTIONS REVIEWED, CALL LIGHT IN REACH, NSR ON CM, VSS, WILL CONTINUE TO MONITOR
--- NOTE | 2019-08-25 21:00 | NUR ---
MEDS GIVEN PER MAR/ORDERS, NO ACUTE S/S OF DISTRESS NOTED, VSS, PT ASSISTED TO BATHROOM, VOID WITH GAS, NO BM AT THIS TIME, REPOSITIONED BACK IN BED, CALL LIGHT IN REACH, WILL CONTINUE TO MONITOR
--- NOTE | 2019-08-25 23:00 | NUR ---
REASSESSMENT COMPLETE, NO ACUTE CHANGES FROM PRIOR ASSESSMENT, VSS, PT REPOSITIONES SELF FREQUENTLY, NSR ON CM, PT DENIES PAIN OR NEEDS, WILL CONTINUE TO MONITOR
[2019-08-26] VITALS (24 sets, daily range): BP systolic 114–154; BP diastolic 51–80
--- NOTE | 2019-08-26 03:00 | NUR ---
REASSESSMENT COMPLETE SEE FLOW SHEET, PT AAOx4, DENIES PAIN OR NEEDS, REPOSITIONED IN BED FOR COMFORT, VSS, NSR ON CM, WILL CONTINUE TO MONITOR
--- NOTE | 2019-08-26 05:00 | NUR ---
CHG BATH AND LINEN CHANGE, GOWN REPLACED, SUBSTERNAL DRSG CHANGED PER ORDERS, PT TOLLERATED WELL, NO DISTRESS NOTED, AMBULATED TO BEDSIDE CHAIR, PT AAOx4, DENIES PAIN OR NEEDS, WILL CONTINUE TO MONITOR
[2019-08-26 05:54] LABS: HEMATOCRIT 24.7 % (42.0-54.0); HEMOGLOBIN 7.9 g/dL (13.5-17.5); MCH 29.9 pg (26.0-34.0); MCV 93.6 fL (80.0-100.0); MEAN PLATELET VOLUME 10.4 fL (7.4-10.4); RBC 2.64 10x6/uL (4.20-6.10); RDW 14.7 % (11.5-14.5)
[2019-08-26 06:08] LABS: WBC 4.5 10x3/uL (4.8-10.8)
[2019-08-26 06:25] LABS: ALBUMIN 2.3 g/dL (3.4-5.0); BILIRUBIN - TOTAL 0.52 mg/dL (0.2-1.3); CALCIUM 8.3 mg/dL (8.5-10.1); CARBON DIOXIDE 31.4 mmol/L (21.0-32.0); CREATININE - SERUM 1.3 mg/dL (0.6-1.3); POTASSIUM - SERUM 3.4 mmol/L (3.5-5.1); PROTEIN - SERUM 5.5 g/dL (6.4-8.2)
--- NOTE | 2019-08-26 07:00 | NUR ---
SHIFT REPORT RECEIVED. AA&O X 4. SITTING UP IN CHAIR. DENIES PAIN AT THIS TIME. ON 2L OF O2 VIA NC. MIDSTERNAL INCISION DRESSING C/D/I. SUBSTERNAL CRISTIAN DRAIN IN PLACE. EMPTIED 30ML OF SEROUS DRAINAGE AT THIS TIME. TPM WIRES COILED AND SECURED. FARNSWORTH IN PLACE WITH CONCENTRATED YELLOW URINE NOTED. SEE FLOW SHEET FOR COMPLETE SHIFT ASSESSMENT. CALL LIGHT IN REACH. WILL CONTINUE TO MONITOR.
--- NOTE | 2019-08-26 07:02 | NUR ---
AM LAB REVIEWED. H&H 7.[address] FLORES NOTIFIED AT THIS TIME.
--- NOTE | 2019-08-26 07:32 | NUR ---
DR. MARES CALLED TO VERIFY RETOCRIT ORDER. ORDER TO CHANGE RETOCRIT ORDER FROM 5 UNITS TO 5,000UNITS.
--- NOTE | 2019-08-26 09:20 | NUR ---
AM MEDS GIVEN. PT DENIES PAIN AT THIS TIME. BLOOD DRAWN FROM CVL AT THIS TIME FOR TYPE AND CROSS. NO FURTHER NEEDS AT THIS TIME. WILL CONTINUE TO MONITOR.
--- NOTE | 2019-08-26 10:15 | NUR ---
ASSISTED TO BATHROOM. LARGE, BROWN, FORMED STOOL NOTED. NO FURTHER NEEDS AT THIS TIME. WILL CONTINUE TO MONITOR.
--- NOTE | 2019-08-26 11:21 | NUR ---
AMBULATED 185FT WITH PHYSICAL THERAPY. 1 UNIT OF PRBC'S INITIATED AT THIS TIME PER ORDER.
--- NOTE | 2019-08-26 11:40 | NUR ---
SPOKE WITH MORGAN FLORES'S NURSES REGARDING PT'S CONCERNS ABOUT CONSTIPATION. ADDED MIRALAX BID.
--- NOTE | 2019-08-26 13:00 | NUR ---
UNIT OF PRBC'S FINISHED INFUSING. PT RESTING COMFORTABLY IN BED. CRISTIAN DRAIN AND TPM WIRES DC'D BY DR. FLORES'S NURSES.
--- NOTE | 2019-08-26 13:44 | NUR ---
Nutrition Follow-up: POD 4 CABG. Pt reports still not eating well. Passing flatus but no BM. Diet: Renal ADA PO intake: 10-50% Wt: 221.5# Labs noted: Na 133, K+ 3.4, Glu 105, Alb 2.3 Meds noted: KDur, Humulin, Senokot, Colace, Miralax -May consider liberalizing to cardiac diabetic diet. -Offer nutrition supplements. -RD following.
--- NOTE | 2019-08-26 14:44 | NUR ---
ASSISTED TO BATHROOM. SMALL AMOUNT OF BROWN, FORMED STOOL NOTED.
--- NOTE | 2019-08-26 15:00 | NUR ---
RE-ASSESSMENT COMPLETED. NO ACUTE CHANGES FROM PREVIOUS ASSESSMENT. DENIES PAIN AT THIS TIME. WILL CONTINUE TO MONITOR.
--- NOTE | 2019-08-26 17:00 | NUR ---
PT REFUSED DINNER TRAY. SON BROUGHT HIM SOME FOOD AND BOTTLED WATER. DENIES FURTHER NEEDS AT THIS TIME.
--- NOTE | 2019-08-26 19:00 | NUR ---
REPORT RECEIVED FROM OFF GOING NURSE. PT IS LAYING IN BED WITH EYES CLOSED. NO NEEDS VOICED AT THIS TIME. NO SIGNS OF ACUTE DISTRESS. WILL CONTINUE TO MONITOR.
--- NOTE | 2019-08-26 21:00 | NUR ---
PT IS LAYING IN BED WATCHING TV AT THIS TIME. NO NEEDS VOICED. NO S/S OF DISTRESS. WILL CONTINUE TO MONITOR.
--- NOTE | 2019-08-26 23:00 | NUR ---
REASSESSMENT COMPLETED, SEE FLOWSHEET FOR DETAILS. PT IS LAYING IN BED WATCHING TV AT THIS TIME. NO NEEDS VOICED. NO S/S OF DISTRESS. WILL CONTINUE TO MONITOR.
[2019-08-27] VITALS (23 sets, daily range): BP systolic 105–158; BP diastolic 54–97
--- NOTE | 2019-08-27 01:00 | NUR ---
PT IS LAYING IN BED WITH EYES CLOSED AT THIS TIME. NO NEEDS VOICED. NO S/S OF DISTRESS NOTED. WILL CONTINUE TO MONITOR.
--- NOTE | 2019-08-27 03:00 | NUR ---
REASSESSMENT COMPLETED, SEE FLOWSHEET FOR DETAILS. PT IS LAYING IN BED WITH EYES CLOSED AT THIS TIME. NO NEEDS VOICED. NO SIGNS OF ACUTE DISTRESS. WILL CONTINUE TO MONITOR.
--- NOTE | 2019-08-27 05:00 | NUR ---
PT WENT DOWN FOR XRAY. WHEN PT GOT BACK TO ROOM PT GAVE SELF A CHG BATH. ASSISTED PT TO CHANGE GOWN AND FULL LINEN CHANGE COMPLETED. PT REQUESTED TO GO TO THE BATHROOM TO HAVE A BM. LARGE FORMED BM NOTED. PT UP IN CHAIR AT THIS TIME. NO FURTHER NEEDS VOICED. NO S/S OF DISTRESS NOTED. WILL CONTINUE TO MONITOR.
[2019-08-27 05:17] LABS: BASOPHILS 0.2 % (0-2); EOSINOPHILS 1.1 % (0-7); HEMATOCRIT 28.7 % (42.0-54.0); HEMOGLOBIN 9.3 g/dL (13.5-17.5); IMMATURE GRANULOCYTES 0.7 % (0-5); LYMPHOCYTES 14.3 % (15-50); MCH 29.6 pg (26.0-34.0); MCHC 32.4 g/dL (31.0-37.0); MEAN PLATELET VOLUME 9.8 fL (7.4-10.4); MONOCYTES 16.5 % (2-11); NEUTROPHILS 67.2 % (40-80); PLATELET COUNT 156 10x3/uL (130-400); RBC 3.14 10x6/uL (4.20-6.10); RDW 16.4 % (11.5-14.5); WBC 5.4 10x3/uL (4.8-10.8)
[2019-08-27 05:19] LABS: MCV 91.4 fL (80.0-100.0)
[2019-08-27 05:36] LABS: ALBUMIN 2.3 g/dL (3.4-5.0); ANION GAP 6.5 mmol/L (8-16); BILIRUBIN - TOTAL 0.77 mg/dL (0.2-1.3); CALCIUM 8.2 mg/dL (8.5-10.1); CARBON DIOXIDE 33.3 mmol/L (21.0-32.0); CREATININE - SERUM 1.3 mg/dL (0.6-1.3); PHOSPHOROUS 2.3 mg/dL (2.5-4.9); POTASSIUM - SERUM 3.8 mmol/L (3.5-5.1); PROTEIN - SERUM 5.7 g/dL (6.4-8.2)
--- NOTE | 2019-08-27 07:21 | NUR ---
SHIFT REPORT RECEIVED. ALERT AND ORIENTED. UP IN CHAIR. ON 2L OF O2 VIA NC. DENIES HAVING PAIN AT THIS TIME. PULLS [phone] ON I.S. MIDSTERNAL INCISION [place]. NO SIGNS OF INFECTION NOTED. SUBTERNAL DRESSING IN PLACE OVER PREVIOUS CRISTIAN DRAIN SITE. FARNSWORTH CATHETER IN PLACE WITH CONCENTRATED URIEN NOTED. RLE HARVEST SITES CHINMAY. NO SIGNS OF INFECTION NOTED. MEAL TRAY DELIVERED AND SET UP. CALL LIGHT IN REACH. WILL CONTINUE TO MONITOR.
--- NOTE | 2019-08-27 10:45 | NUR ---
20 PIV PLACED ON LEFT HAND X 1 ATTEMPT. PT TOLERATED WELL.
--- NOTE | 2019-08-27 11:04 | NUR ---
HADLEY YOUNG DC'D AT THIS TIME PER ORDERS. PT RESTING COMFORTABLY IN BED. SPOUSE AT BEDSIDE. WILL COTNINUE TO MONITOR.
--- NOTE | 2019-08-27 11:41 | TEE ---
PATIENT:RAGHAVENDRA COLE MEDICAL RECORD: [id number] LOCATION:[place] [address] AGE OF PATIENT: 78 ADMISSION DATE: 08/22/19 SEX: M REFERRING PHYSICIAN: INTERPRETING PHYSICIAN: ANISH CABALLERO MD TRANSESOPHAGEAL ECHOCARDIOGRAM Date: 08/22/19 SONG CHARGE Y INDICATIONS: CABG PREMEDICATIONS: PATIENT'S RESPONSE PROCEDURE DOPPLER MEASUREMENTS: LVIT LA PA RA LVOT RVOT Asc. Ao AV Gradient Peak AV Mean AV Area MV Gradient Peak MV Mean MV Area INTERPRETATION: LVd: 4.7 cm LVs: 2.8 cm LA: 4.0 CM Doppler: 2-D: COLOR FLOW DOPPLER NORMAL SALINE STUDY: MISCELLANOUS: DIAGNOSIS: PLAN: Reimbursement Liaison:Luis Ramos Power Checker: Saroj MARIN COMMENTS: DATE OF SERVICE: 08/22/2019 PROCEDURE: Transesophageal echo evaluation of valvular structures during bypass surgery. FINDINGS: 1. Left ventricular chamber size is within normal limits. Left ventricular systolic function is normal. Overall ejection fraction estimated at 50%. 2. Left atrium, right atrium, and right ventricle chamber sizes are within TRANSESOPHAGEAL ECHOCARDIOGRAM REPORT [id number] RAGHAVENDRA COLE normal limits. 3. Valvular structures have normal structure and motion. 4. Doppler interrogation reveals lvzwj-wo-omaf mitral regurgitation, xfzvu-st-remi tricuspid regurgitation, no other valvular insufficiency or stenosis. 5. No evidence of pericardial effusion or left ventricular thrombus. TRANSINT:[id number] Voice Confirmation ID: [id number] DOCUMENT ID: [id number] at 1141 CC: [id number] DICTATION DATE: 08/23/19 1058 [employer] TRIMMER: 08/23/19 2251 ADM IN [place] [address] [place] [address]
--- NOTE | 2019-08-27 12:49 | NUR ---
C/O PAIN 10/10 IN B/L LOWER EXTREMEITIES, PERCOCET 5/325 GIVNE PER PRN ORDER
--- NOTE | 2019-08-27 13:06 | NUR ---
PT REPORTS PAIN ON BOTH LOWER EXTREMITIES. EDEMA NOTED. ELEVATED ON PILLOWS. PERCOCET 5MG TAB GIVEN FOR PAIN. WILL CONTINUE TO MONITOR.
--- NOTE | 2019-08-27 13:54 | NUR ---
ALFREDO RN WITH DR. FLORES NOTIFIED OF PATIENT EXPERIENCING PAIN ON HIS LEGS.
--- NOTE | 2019-08-27 14:11 | NUR ---
DR. TROTTER PAGED AT THIS TIME TO NOTIFY OF CONSULT. WAITING SAFETY TECHNICIAN BACK.
--- NOTE | 2019-08-27 15:00 | NUR ---
RE-ASSESSMENT COMPLETED. RESTING IN CHAIR. NO ACUTE CHANGES FROM PREVIOUS ASSESSMENT. WILL CONTINUE TO MONITOR.
[2019-08-27 15:29] LABS: PROTIME 12.7 SECONDS (11.6-15.0)
--- NOTE | 2019-08-27 16:30 | NUR ---
BLOOD GLUCOSE 13O. NO INSULIN GIVEN PER ORDERS.
--- NOTE | 2019-08-27 18:38 | MORECARE ---
CASE MANAGEMENT DISCHARGE SUMMARY PATIENT: RAGHAVENDRA COLE GARY UNIT: [id number] ADM DATE: 08/22/19 AGE: 78 : 42 SEX: M ROOM/BED: D[facility] AUTHOR: RADHA,DOC PHYSICIAN: REFERRING PHYSICIAN: SHO FLORES MD DATE OF SERVICE: 08/27/19 Discharge Plan Patient Name: RAGHAVENDRA COLE Facility: [facility]:[place] : 1940 Planned Disposition: Anticipated Discharge Date: Discharge Date: Expected LOS: Initial Reviewer: [email or web address] Initial Review Date: 08/23/2019 Generated: 08/27/19 7:37 pm Comments DCP- Discharge Planning Updated by [email or web address]: Cassie Pedro on 08/27/19 5:[address] CM met with patient and spouse regarding DME. ISSA signed for [facility] [place]. Patient will need walk test closer to discharge to see if he qualifies for portable 02. Patient will also need a nebulizer upon discharge. CM will continue to follow and assist as needed with discharge planning / needs. DCP- Discharge Planning Updated by [email or web address]: Cassie Pedro on 08/23/19 6:[address] Patient Name: RAGHAVENDRA COLE Admission Status: Urgent Accout number: [id number] Admission Date: 08-22-2019 : 1940 Admission Diagnosis: Attending: SHO FLORES Current LOS: 1 Anticipated DC Date: Planned Disposition: Primary Insurance: MEDICARE A & B Discharge Planning Comments: CM met with patient at bedside after explaining CM role and obtaining verbal consent. Patient lives at home with his Selina where he is independent with his care and plans to return there upon discharge. Patient feels this would be a safe discharge. CM discussed availability / needs of home health and medical equipment. Patient denies any discharge needs at this time. Patient states he will have his family drive him home upon discharge. Patient has home 02 he wears at night with [employer]. He also has a CPAP but he doesn't wear it. CM will continue to follow and assist as needed with discharge planning / needs. 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 Yes * How many steps to enter\exit or inside your home? 2 - ramp * PCP TRISTIN * Pharmacy [facility] * Preadmission Environment Home with Family * ADLs Independent * Other Equipment WALKER, CPAP, HOME 02 * List name and contact numbers for known caregivers / representatives who currently or will assist patient after discharge: GIACOMO COLE - SPOUSE- [phone] JESUS KIRBY - DAUGHTER- [phone] MELLISA COLE - SON - [phone] AIDA COLE - SON - [phone] BARTOLO - DAUGHTER - [phone] * Verbal permission to speak to the caregivers and representatives has been obtained from the patient. Yes * Community resources currently utilized None * Additional services required to return to the preadmission environment? No * Can the patient safely return to the preadmission environment? Yes * Has this patient been hospitalized within the prior 30 days at any hospital? No Coverage Notice Reviewer: [email or web address] - Cassie Pedro Notice Issued Date-Time: 08/27/2019 15:00 Notice Type: Patient Choice Letter Notice Delivered To: Patient Relationship to Patient: Self Lisw Name: Delivery Method: - Estefania Days: Prior Verbal Notification: Recipient Understood Notice: Recipient Signature: Med Rec Note Co-signed by Attending: Coverage Notice Comment: Last DP export: 08/23/19 6:25 Patient Name: RAGHAVENDRA COLE Page [id number] at 1838 All edits/amendments must be made on the electronic document DICTATION DATE: 08/27/191836 THERMOSCREW OPERATOR: SANGEETHA 08/27/191836 RPT#: [id number] DC DATE: STATUS: ADM IN [facility] [address] [place] [address] END OF REPORT
--- NOTE | 2019-08-27 19:00 | NUR ---
REPORT RECEIVED FROM OFF GOING NURSE. PT IS SITTING UP IN CHAIR AT THIS TIME. PT REQUESTED HELP BACK TO BED. NO FURTHER NEEDS VOICED AT THIS TIME. NO S/S OF DISTRESS. WILL CONTINUE TO MONITOR.
--- NOTE | 2019-08-27 21:00 | NUR ---
PT IS LAYING IN BED WITH EYES CLOSED AT THIS TIME. NO NEEDS VOICED. NO S/S OF DISTRESS. WILL CONTINUE TO MONITOR.
--- NOTE | 2019-08-27 23:00 | NUR ---
REASSESSMENT COMPLETED, SEE FLOWSHEET FOR DETAILS. PT IS LAYING IN BED WITH EYES CLOSED AT THIS TIME. NO NEEDS VOICED. NO S/S OF DISTRESS NOTED. WILL CONTINUE TO MONITOR.
[2019-08-28] VITALS (25 sets, daily range): BP systolic 103–165; BP diastolic 54–84
--- NOTE | 2019-08-28 01:00 | NUR ---
PT IS LAYING IN BED WITH EYES CLOSED. NO NEEDS VOICED. NO S/S OF DISTRESS NOTED. WILL CONTINUE TO MONITOR.
--- NOTE | 2019-08-28 02:00 | NUR ---
HEARD PT ON THE PHONE TALKING ABOUT HOW HE WOKE UP WITH CHEST PAIN. AFTER GETTING OFF THE PHONE PT CALLS ME INTO THE ROOM. C/O CHEST PAIN ON THE LEFT SIDE. PT DENIES PAIN RADIATING. PT DENIES SOB. PT DESCRIBES IT A DULL ACHY PAIN. NO CHANGE IN HEART RHYTHM NOTICED ON MONITOR WHEN LOOKING AT HISTORY. NO CHANGE IN VITALS NOTED. REMINDED PT THAT HE HAD PAIN PILLS IF HE WANTED TO TAKE ONE, PT STATED HE WOULD LIKE TO TRY ONE. PAIN MEDICATION GIVEN PER EMAR. DAUGHTER CALLED STATING THAT HER DAD HAD CALLED HER ABOUT WAKING UP WITH CHEST PAIN AND THAT SHE WAS GOING TO COME UP HERE BUT WANTED TO MAKE SURE THE PT HAD TOLD ME ABOUT IT. DISCUSSED PLAN WITH DAUGHTER AND SHE WAS IN AGREEMENT THAT IT COULD BE A MIXTURE OF BEING SORE WITH SOME ANXIETY SINCE WE NOTICED NO OTHER SYMPTOMS. UPON REASSESSMENT OF PAIN MEDICATION PATIENT STATED THAT IT WAS GONE AND HE FELT MUCH BETTER NOW. STILL NO CHANGES NOTED IN PT'S RHYTHM OR VITAL SIGNS. WILL CONTINUE TO MONITOR CLOSELY.
--- NOTE | 2019-08-28 03:00 | NUR ---
REASSESSMENT COMPLETED, SEE FLOWSHEET FOR DETAILS. PT IS LAYING IN BED WITH EYES CLOSED AT THIS TIME. NO NEEDS VOICED AT THIS TIME. NO SIGNS OF ACUTE DISTRESS. WILL CONTINUE TO MONITOR.
--- NOTE | 2019-08-28 05:00 | NUR ---
XRAY CAME TO GET PT UP FOR XRAY, PT C/O PAIN IN HIS LEFT SIDE OF HIS CHEST UPON SITTING UP ON SIDE OF BED, ALSO C/O HIP PAIN UPON MOVING LEGS OVER. PT REQUESTED TO NOT STAY UP AFTER XRAY AND TO GET UP A LITTLE LATER. INFORMED PT THAT HE COULD GO BACK TO BED FOR A LITTLE LONGER. PRN PAIN MEDICATION GIVEN PER EMAR. WILL CONTINUE TO MONITOR.
[2019-08-28 06:20] LABS: HEMOGLOBIN 9.3 g/dL (13.5-17.5); MCH 29.2 pg (26.0-34.0); MCHC 32.1 g/dL (31.0-37.0); MCV 90.9 fL (80.0-100.0); MEAN PLATELET VOLUME 11.7 fL (7.4-10.4); PLATELET COUNT 176 10x3/uL (130-400); RBC 3.19 10x6/uL (4.20-6.10); RDW 16.3 % (11.5-14.5); WBC 6.5 10x3/uL (4.8-10.8)
[2019-08-28 06:55] LABS: ALBUMIN 2.2 g/dL (3.4-5.0); ANION GAP 10.9 mmol/L (8-16); BILIRUBIN - TOTAL 0.58 mg/dL (0.2-1.3); CALCIUM 8.4 mg/dL (8.5-10.1); CARBON DIOXIDE 28.4 mmol/L (21.0-32.0); CREATININE - SERUM 1.4 mg/dL (0.6-1.3); MAGNESIUM - SERUM 1.7 mg/dL (1.8-2.4); POTASSIUM - SERUM 4.3 mmol/L (3.5-5.1); PROTEIN - SERUM 5.6 g/dL (6.4-8.2)
[2019-08-28 07:00] LABS: PHOSPHOROUS 3.2 mg/dL (2.5-4.9)
--- NOTE | 2019-08-28 07:00 | NUR ---
SHIFT ASSESSMENT COMPLETED, PT CARE ASSUMED, MONITORS ON AND WORKING, VITALS STABLE, PT AWAKE AND ALERT, SITTING UP IN CHAIR. SEE FLOW SHEET FOR FURTHER DETAILS. WILL CONTINUE TO OBSERVE.
[2019-08-28 07:06] LABS: INR 1.01 (0.85-1.17); PROTIME 12.8 SECONDS (11.6-15.0)
--- NOTE | 2019-08-28 09:00 | NUR ---
PT SITTING UP IN CHAIR, MONITORS ON AND WORKING, SPOUSE AT BEDSIDE, UPDATE PROVIDED, NO SIGNS/SYMPTOMS OF PAIN OR DISCOMFORT NOTED AT THIS TIME, CALL LIGHT WITHIN REACH, WILL CONTINUE TO OBSERVE.
--- NOTE | 2019-08-28 11:00 | NUR ---
PT AND RT HAS PT UP WALKING, PT TOLERATED WELL. MONITORS ON AND WORKING, VITALS STABLE, SEE FLOW SHEET FOR FURTHER DETAILS. WILL CONTINUE TO OBSERVE.
--- NOTE | 2019-08-28 11:06 | NUR ---
Nutrition Follow-up: Pt reports slight improvement in appetite/PO intake. Diet: Renal ADA PO intake: 10-20% yesterday Wt: 221.2# (down from 224.8# on 08/25) Last BM: 08/27 Labs noted: Na 134, Mg 1.7, elevated LFTs Meds noted: Coumadin, Miralax, Colace, Senokot, KDur, Neutraphos, Mag Sulfate -Rec liberalizing to cardiac carb consistent diet. -Offer nutrition supplements. -May consider appetite stimulant. -RD following.
[2019-08-28 11:51] LABS: ANISOCYTOSIS OCC; EOSINOPHILS 2 % (0-7); LYMPHOCYTES 13 % (15-50); MONOCYTES 21 % (2-11); NEUTROPHILS 63 % (40-80); PLATELET ESTIMATE NORMAL
--- NOTE | 2019-08-28 13:00 | NUR ---
PT SITTING UP IN CHAIR EATING LUNCH, BLADDER TRAINING COMPLETED THIS AM, NO SIGNS/SYMPTOMS OF PAIN OR DISCOMFORT NOTED AT THIS TIME, CALL LIGHT WITHIN REACH, WILL CONTINUE TO OBSERVE.
--- NOTE | 2019-08-28 14:24 | NUR ---
GAVE PT A PRN PAIN MED PERCOCET 5 FOR MILD TO MOD PAIN, PT SITTING UP IN CHAIR. CALL LIGHT WITHIN REACH, WILL CONTINUE TO OBSERVE.
--- NOTE | 2019-08-28 15:00 | NUR ---
PATIENT AWAKE AND ALERT UP IN CHAIR. OXYGEN 2 LITERS NC PULSE OX 97%. OXYGEN REMOVED. LEFT HAND PIV SALINE LOCKED NO REDNESS OR SWELLING. SITTING IN CHAIR AT BEDSIDE. AT BEDSIDE. NO DISTRESS. MINIMAL PAIN. MID CHEST DRESSING OPEN TO AIR NO REDNESS OR DRAINAGE. SUBSTERNAL DRESSING DRY AND INTACT. FARNSWORTH CATH PATENT AND DRAINIG CLEAR IRVING URINE. MONITOR SR.
--- NOTE | 2019-08-28 15:00 | NUR ---
awakes easily up in chair at bedside. here. a little pain. no distress. mcgovern cath patent no distress.
--- NOTE | 2019-08-28 15:18 | NUR ---
PATIENT CALL LIGHT ON. STATES HE IS SHORT OF BREATH AND NEEDS HIS OXYGEN BACK ON. PULSE OX 93%. OXYGEN APPLIED 2 LITERS NC PER PATIENT REQUEST. NO DISTRESS. WATCHING TV
--- NOTE | 2019-08-28 16:30 | NUR ---
refused supper. maria r pham.
--- NOTE | 2019-08-28 17:30 | NUR ---
returned to bed with assistances moves slowly. states he does get short ofbreath with transferring.
--- NOTE | 2019-08-28 19:00 | NUR ---
ASSESSMENT COMPLETE. LAYING IN BED. CALL LIGHT IN REACH. DENIES ANY NEEDS AT THIS TIME. O2 AT 2L VIA NC WITH HUMIDIFER. DRESSING INTACT TO RIGHT NECK, LEFT ABD. SCABBED AREA TO LEFT LOWER ABD, NOT OPEN OR DRAINING. MIDSTERNAL INCISION CHINMAY, NO SIGNS OF INFECTION. F/C STILL INTACT WITH BLADDER TRAINING. IS USE X 10, GOOD EFFORT, [id number] ML INPIRED.
--- NOTE | 2019-08-28 19:51 | MORECARE ---
CASE MANAGEMENT DISCHARGE SUMMARY PATIENT: RAGHAVENDRA COLE GARY UNIT: [id number] ADM DATE: 08/22/19 AGE: 78 : 42 SEX: M ROOM/BED: D[facility] AUTHOR: ALEXANDRO GARCIA PHYSICIAN: REFERRING PHYSICIAN: SHO FLORES MD DATE OF SERVICE: 08/28/19 Discharge Plan Patient Name: RAGHAVENDRA COLE Facility: [facility]:[place] : 1940 Planned Disposition: Anticipated Discharge Date: Discharge Date: Expected LOS: Initial Reviewer: [email or web address] Initial Review Date: 08/23/2019 Generated: 08/28/19 8:50 pm DCP- Discharge Planning Updated by [email or web address]: Cassie Pedro on 08/27/19 5:[address] CM met with patient and spouse regarding DME. ISSA signed for [facility] [place]. Patient will need walk test closer to discharge to see if he qualifies for portable 02. Patient will also need a nebulizer upon discharge. CM will continue to follow and assist as needed with discharge planning / needs. DCP- Discharge Planning Updated by [email or web address]: Cassie Pedro on 08/23/19 6:[address] Patient Name: RAGHAVENDRA COLE Admission Status: Urgent Accout number: [id number] Admission Date: 08-22-2019 : 1940 Admission Diagnosis: Attending: SHO FLORES Current LOS: 1 Anticipated DC Date: Planned Disposition: Primary Insurance: MEDICARE A & B Discharge Planning Comments: CM met with patient at bedside after explaining CM role and obtaining verbal consent. Patient lives at home with his Selina where he is independent with his care and plans to return there upon discharge. Patient feels this would be a safe discharge. CM discussed availability / needs of home health and medical equipment. Patient denies any discharge needs at this time. Patient states he will have his family drive him home upon discharge. Patient has home 02 he wears at night with [employer]. He also has a CPAP but he doesn't wear it. CM will continue to follow and assist as needed with discharge planning / needs. Stone Planer: Cassie Pedro DCPIA - Discharge Planning Initial Assessment Updated by [email or web address]: Cassie Pedro on 08/23/19 7:12 pm * Is the patient Alert and Oriented? Yes * How many steps to enter\exit or inside your home? 2 - ramp * PCP TRISTIN * Pharmacy [facility] [place] * Preadmission Environment Home with Family * ADLs Independent * Other Equipment WALKER, CPAP, HOME 02 * List name and contact numbers for known caregivers / representatives who currently or will assist patient after discharge: GIACOMO COLE - SPOUSE- [phone] JESUS KIRBY - DAUGHTER- [phone] MELLISA COLE - SON - [phone] AIDA COLE - SON - [phone] BARTOLO - DAUGHTER - [phone] * Verbal permission to speak to the caregivers and representatives has been obtained from the patient. Yes * Community resources currently utilized None * Additional services required to return to the preadmission environment? No * Can the patient safely return to the preadmission environment? Yes * Has this patient been hospitalized within the prior 30 days at any hospital? No External Providers [facility] Next Contact Date: Service Request Date: Service Type: Resolution: Reviewer: Comments: Coverage Notice Reviewer: [email or web address] - Cassie Pedro Notice Issued Date-Time: 08/27/2019 15:00 Notice Type: Patient Choice Letter Notice Delivered To: Patient Relationship to Patient: Self Sash Sticker Name: Delivery Method: - Estefania Days: Prior Verbal Notification: Recipient Understood Notice: Recipient Signature: Med Rec Note Co-signed by Attending: Coverage Notice Comment: Last DP export: 08/27/19 5:38 Patient Name: RAGHAVENDRA COLE Page [id number] at 1951 All edits/amendments must be made on the electronic document DICTATION DATE: 08/28/191949 HEARING HEALTHCARE PRACTITIONER: SANGEETHA 08/28/191949 RPT#: [id number] DC DATE: STATUS: ADM IN [facility] [address] [place] [address] END OF REPORT
--- NOTE | 2019-08-28 20:10 | MORECARE ---
CASE MANAGEMENT DISCHARGE SUMMARY PATIENT: RAGHAVENDRA COLE GARY UNIT: [id number] ADM DATE: 08/22/19 AGE: 78 : 42 SEX: M [facility] AUTHOR: ALEXANDRO GARCIA PHYSICIAN: REFERRING PHYSICIAN: SHO FLORES MD DATE OF SERVICE: 08/28/19 Discharge Plan Patient Name: RAGHAVENDRA COLE Facility: [facility]:[place] : 1940 Planned Disposition: Anticipated Discharge Date: Discharge Date: Expected LOS: Initial Reviewer: [email or web address] Initial Review Date: 08/23/2019 Generated: 08/28/19 9:09 pm Comments DCP- Discharge Planning Updated by [email or web address]: Cassie Pedro on 08/28/19 7:[address] CM received order for eval for portable 02 and nebulizer. Walk test completed today and orders faxed to [facility] this evening. Patient will potentially discharge tomorrow. CM will continue to follow and assist as needed with discharge planning / needs DCP- Discharge Planning Updated by [email or web address]: Cassie Pedro on 08/27/19 5:[address] CM met with patient and spouse regarding DME. ISSA signed for [facility]. Patient will need walk test closer to discharge to see if he qualifies for portable 02. Patient will also need a nebulizer upon discharge. CM will continue to follow and assist as needed with discharge planning / needs. DCP- Discharge Planning Updated by [email or web address]: Cassie Pedro on 08/23/19 6:[address] Patient Name: RAGHAVENDRA COLE Admission Status: Urgent Accout number: [id number] Admission Date: 08-22-2019 : 1940 Admission Diagnosis: Attending: SHO FLORES Current LOS: 1 Anticipated DC Date: Planned Disposition: Primary Insurance: MEDICARE A & B Discharge Planning Comments: CM met with patient at bedside after explaining CM role and obtaining verbal consent. Patient lives at home with his Selina where he is independent with his care and plans to return there upon discharge. Patient feels this would be a safe discharge. CM discussed availability / needs of home health and medical equipment. Patient denies any discharge needs at this time. Patient states he will have his family drive him home upon discharge. Patient has home 02 he wears at night with [employer]. He also has a CPAP but he doesn't wear it. CM will continue to follow and assist as needed with discharge planning / needs. Linux Devops Engineer: Cassie Pedro DCPIA - Discharge Planning Initial Assessment Updated by [email or web address]: Cassie Pedro on 08/23/19 7:12 pm * Is the patient Alert and Oriented? Yes * How many steps to enter\exit or inside your home? 2 - ramp * PCP TRISTIN * Pharmacy [facility] [place] * Preadmission Environment Home with Family * ADLs Independent * Other Equipment WALKER, CPAP, HOME 02 * List name and contact numbers for known caregivers / representatives who currently or will assist patient after discharge: GIACOMO COLE - SPOUSE- [phone] JESUS KIRBY - DAUGHTER- [phone] MELLISA COLE - SON - [phone] AIDA COLE - SON - [phone] BARTOLO - DAUGHTER - [phone] * Verbal permission to speak to the caregivers and representatives has been obtained from the patient. Yes * Community resources currently utilized None * Additional services required to return to the preadmission environment? No * Can the patient safely return to the preadmission environment? Yes * Has this patient been hospitalized within the prior 30 days at any hospital? No Coverage Notice Reviewer: [id number] - Cassie Pedro Notice Issued Date-Time: 08/27/2019 15:00 Notice Type: Patient Choice Letter Notice Delivered To: Patient Relationship to Patient: Self Software Engineer Web Services Name: Delivery Method: - Estefania Days: Prior Verbal Notification: Recipient Understood Notice: Recipient Signature: Med Rec Note Co-signed by Attending: Coverage Notice Comment: Last DP export: 08/28/19 6:51 Patient Name: RAGHAVENDRA COLE Page 57301 at 2009 All edits/amendments must be made on the electronic document DICTATION DATE: 08/28/192008 DIRECTOR CAREER: SANGEETHA 08/28/192008 RPT#: [id number] LA DATE: STATUS: ADM IN [facility] [address] [place] [address] END OF REPORT
--- NOTE | 2019-08-28 21:00 | NUR ---
LAYING IN BED. CALL LIGHT IN REACH. DENIES ANY NEEDS AT THIS TIME. MEDICIATIONS GIVEN. BLOOD SUGAR 119. NO INSULIN INDICATED.
--- NOTE | 2019-08-28 23:00 | NUR ---
PT LAYING IN BED. C/O PAIN, GIVEN PAIN MEDICATIONS. DENIES ANYMORE NEEDS
[2019-08-29] VITALS (24 sets, daily range): BP systolic 98–159; BP diastolic 51–81
--- NOTE | 2019-08-29 01:00 | NUR ---
LAYING IN BED. DENIES ANY COMPLAINTS OR NEEDS. CALL LIGHT IN REACH
--- NOTE | 2019-08-29 03:00 | NUR ---
PT LAYING IN BED. CALL LIGHT IN REACH. IS USE WITH GOOD EFFORT, APPROX 1000 INSPIRED WITH EACH TIME. DENIES ANY COMPLAINTS OR NEEDS.
--- NOTE | 2019-08-29 04:50 | NUR ---
RAD TEAM HERE FOR PA/LAT. PT TOLERATED WELL.
--- NOTE | 2019-08-29 05:00 | NUR ---
PT UP IN CHAIR, CHG BATH GIVEN. LINEN CHANGED ON BED. DENIES ANY NEEDS. CALL LIGHT IN REACH, AT CHAIRSIDE
[2019-08-29 05:45] LABS: HEMOGLOBIN 10.4 g/dL (13.5-17.5); MCH 29.7 pg (26.0-34.0); MCHC 31.5 g/dL (31.0-37.0); RBC 3.5 10x6/uL (4.20-6.10); RDW 16.6 % (11.5-14.5)
[2019-08-29 05:50] LABS: MCV 94.3 fL (80.0-100.0); WBC 8.6 10x3/uL (4.8-10.8)
[2019-08-29 06:03] LABS: ALBUMIN 2.4 g/dL (3.4-5.0); ANION GAP 7.5 mmol/L (8-16); BILIRUBIN - TOTAL 0.57 mg/dL (0.2-1.3); CALCIUM 8.6 mg/dL (8.5-10.1); CARBON DIOXIDE 32.2 mmol/L (21.0-32.0); CREATININE - SERUM 1.4 mg/dL (0.6-1.3); MAGNESIUM - SERUM 1.8 mg/dL (1.8-2.4); PHOSPHOROUS 3.6 mg/dL (2.5-4.9); POTASSIUM - SERUM 4.7 mmol/L (3.5-5.1); PROTEIN - SERUM 6.2 g/dL (6.4-8.2)
[2019-08-29 06:19] LABS: INR 1.01 (0.85-1.17); PROTIME 12.8 SECONDS (11.6-15.0)
--- NOTE | 2019-08-29 07:35 | NUR ---
Chapincito Brennan dc'adrianne at this time per orders. Pt tolerated well. Urinal provided. Pt instructed to notify nurse when he feels the urge to urinate. Meal tray delivered. Pt did not want to eat at this time. Tray left in room. Will continue to monitor.
--- NOTE | 2019-08-29 08:01 | NUR ---
Ambulated to bathroom. No BM noted at this time. Will continue to monitor.
--- NOTE | 2019-08-29 08:16 | NUR ---
Call received from Dr. Gabriel pt's daughter. She was concern about pt complaining of chest pain. Will address with doctors.
--- NOTE | 2019-08-29 09:40 | NUR ---
CALL LIGHT ANSWERED. PT STILL REPORTING PAIN ON BILAT LEGS. BURNING IN NATURE. TRANSFERRED TO BED PER PT REQUEST. WILL CONITNUE TO MONITOR.
--- NOTE | 2019-08-29 10:40 | NUR ---
DR. FLORES AT BEDSIDE. ORDERED REHAB CONSULT IF PATIENT IS OK WITH GOING TO REHAB. NURSE DISCUSSED WITH PT AND SPOUSE. PT IS WILLING TO GO TO REHAB FOR A FEW DAYS.
--- NOTE | 2019-08-29 12:05 | MORECARE ---
CASE MANAGEMENT DISCHARGE SUMMARY PATIENT: RAGHAVENDRA COLE GARY UNIT: [id number] ADM DATE: 08/22/19 AGE: 78 : 42 SEX: M ROOM/BED: D[facility] AUTHOR: ALEXANDRO GARCIA PHYSICIAN: REFERRING PHYSICIAN: SHO FLORES MD DATE OF SERVICE: 08/29/19 Discharge Plan Patient Name: RAGHAVENDRA COLE Facility: [facility]:[place] : 1940 Planned Disposition: Anticipated Discharge Date: Discharge Date: Expected LOS: Initial Reviewer: [email or web address] Initial Review Date: 08/23/2019 Generated: 08/29/19 1:05 pm Comments DCP- Discharge Planning Updated by [email or web address]: Kandi Lara on 08/29/19 11:[address] Patient Name: RAGHAVENDRA COLE Admission Status: Urgent Accout number: [id number] Admission Date: 08-22-2019 : 1940 Admission Diagnosis: Attending: SHO FLORES Current LOS: 7 Anticipated DC Date: Planned Disposition: Primary Insurance: MEDICARE A & B Discharge Planning Comments: PATIENT WANTS TO GO TO [facility] IF POSSIBLE. AYAAN IS COMING TO TALK WITH HIM AND HIS . I SPOKE WITH [facility] AND THEY WILL NEED AN UPDATED PROGRESS NOTE FAXED TO THEM. CM WILL CALL THEM WHEN HE IS TO DC TO HOME. IMM SIGNED. Management Professional: Kandi Lara DCP- Discharge Planning Updated by [email or web address]: Cassie Pedro on 08/28/19 7:[address] CM received order for eval for portable 02 and nebulizer. Walk test completed today and orders faxed to [facility] this evening. Patient will potentially discharge tomorrow. CM will continue to follow and assist as needed with discharge planning / needs DCP- Discharge Planning Updated by [id number]: Cassie Pedro on 08/27/19 5:[address] CM met with patient and spouse regarding DME. ISSA signed for [facility]. Patient will need walk test closer to discharge to see if he qualifies for portable 02. Patient will also need a nebulizer upon discharge. CM will continue to follow and assist as needed with discharge planning / needs. DCP- Discharge Planning Updated by [email or web address]: Cassie Pedro on 08/23/19 6:[address] Patient Name: RAGHAVENDRA COLE Admission Status: Urgent Accout number: [id number] Admission Date: 08-22-2019 : 1940 Admission Diagnosis: Attending: SHO FLORES Current LOS: 1 Anticipated DC Date: Planned Disposition: Primary Insurance: MEDICARE A & B Discharge Planning Comments: CM met with patient at bedside after explaining CM role and obtaining verbal consent. Patient lives at home with his Selina where he is independent with his care and plans to return there upon discharge. Patient feels this would be a safe discharge. CM discussed availability / needs of home health and medical equipment. Patient denies any discharge needs at this time. Patient states he will have his family drive him home upon discharge. Patient has home 02 he wears at night with [employer]. He also has a CPAP but he doesn't wear it. CM will continue to follow and assist as needed with discharge planning / needs. Management Professional: Cassie Pedro DCPIA - Discharge Planning Initial Assessment Updated by [email or web address]: Cassie Pedro on 08/23/19 7:12 pm * Is the patient Alert and Oriented? Yes * How many steps to enter\exit or inside your home? 2 - ramp * PCP TRISTIN * Pharmacy [facility] [place] * Preadmission Environment Home with Family * ADLs Independent * Other Equipment WALKER, CPAP, HOME 02 * List name and contact numbers for known caregivers / representatives who currently or will assist patient after discharge: GIACOMO COLE - SPOUSE- [phone] JESUS KIRBY - DAUGHTER- [phone] MELLISA COLE - SON - [phone] AIDA COLE - SON - [phone] BARTOLO - DAUGHTER - [phone] * Verbal permission to speak to the caregivers and representatives has been obtained from the patient. Yes * Community resources currently utilized None * Additional services required to return to the preadmission environment? No * Can the patient safely return to the preadmission environment? Yes * Has this patient been hospitalized within the prior 30 days at any hospital? No Coverage Notice Reviewer: [id number] - Cassie Pedro Notice Issued Date-Time: 08/27/2019 15:00 Notice Type: Patient Choice Letter Notice Delivered To: Patient Relationship to Patient: Self Tool Design Checker Name: Delivery Method: - Estefania Days: Prior Verbal Notification: Recipient Understood Notice: Recipient Signature: Med Rec Note Co-signed by Attending: Coverage Notice Comment: Reviewer: [email or web address] Tamera Lara Notice Issued Date-Time: 08/29/2019 11:59 Notice Type: IM Discharge Notice Notice Delivered To: Patient Relationship to Patient: Tool Design Checker Name: Delivery Method: HAND - Hand Delivered Estefania Days: Prior Verbal Notification: Recipient Understood Notice: Yes Recipient Signature: Yes Med Rec Note Co-signed by Attending: Coverage Notice Comment: Last DP export: 08/28/19 7:10 Patient Name: RAGHAVENDRA COLE Page 12414 at 1205 All edits/amendments must be made on the electronic document DICTATION DATE: 08/29/19 1205 PREPARED FOODS TEAM LEADER: SANGEETHA 08/29/19 1205 RPT#: [id number] DC DATE: STATUS: ADM IN [facility] [address] [place] [address] END OF REPORT
--- NOTE | 2019-08-29 12:25 | NUR ---
AMBULATED TO BATHROOM. VOIDED ABOUT 100ML OF CONCENTRATED YELLOW URINE. ASSISTED BACK TO CHAIR. REPORTS 0/10 PAIN AT THIS TIME. WILL CONTINUE TO MONITOR.
--- NOTE | 2019-08-29 15:35 | NUR ---
PT NOT IN ROOM AT THIS TIME. WENT TO IMAGING FOR CT SCAN.
--- NOTE | 2019-08-29 15:59 | MORECARE ---
CASE MANAGEMENT DISCHARGE SUMMARY PATIENT: RAGHAVENDRA COLE GARY UNIT: [id number] ADM DATE: 08/22/19 AGE: 78 : 42 SEX: M ROOM/BED: D[facility] AUTHOR: ALEXANDRO GARCIA PHYSICIAN: REFERRING PHYSICIAN: SHO FLORES MD DATE OF SERVICE: 08/29/19 Discharge Plan Patient Name: RAGHAVENDRA COLE Facility: [facility]:[place] : 1940 Planned Disposition: Anticipated Discharge Date: Discharge Date: Expected LOS: Initial Reviewer: [email or web address] Initial Review Date: 08/23/2019 Generated: 08/29/19 4:59 pm Comments DCP- Discharge Planning Updated by [email or web address]: Kandi Lara on 08/29/19 11:[address] Patient Name: RAGHAVENDRA COLE Admission Status: Urgent Accout number: [id number] Admission Date: 08-22-2019 : 1940 Admission Diagnosis: Attending: SHO FLORES Current LOS: 7 Anticipated DC Date: Planned Disposition: Primary Insurance: MEDICARE A & B Discharge Planning Comments: PATIENT WANTS TO GO TO [facility] IF POSSIBLE. AYAAN IS COMING TO TALK WITH HIM AND HIS . I SPOKE WITH [facility] AND THEY WILL NEED AN UPDATED PROGRESS NOTE FAXED TO THEM. CM WILL CALL THEM WHEN HE IS TO DC TO HOME. IMM SIGNED. Demolition Specialist: Kandi Lara DCP- Discharge Planning Updated by [email or web address]: Cassie Pedro on 08/28/19 7:[address] CM received order for eval for portable 02 and nebulizer. Walk test completed today and orders faxed to [facility] this evening. Patient will potentially discharge tomorrow. CM will continue to follow and assist as needed with discharge planning / needs DCP- Discharge Planning Updated by [email or web address]: Cassie Pedro on 08/27/19 5:[address] CM met with patient and spouse regarding DME. ISSA signed for [facility]. Patient will need walk test closer to discharge to see if he qualifies for portable 02. Patient will also need a nebulizer upon discharge. CM will continue to follow and assist as needed with discharge planning / needs. DCP- Discharge Planning Updated by [id number]: Cassie Pedro on 08/23/19 6:[address] Patient Name: RAGHAVENDRA COLE Admission Status: Urgent Accout number: [id number] Admission Date: 08-22-2019 : 1940 Admission Diagnosis: Attending: SHO FLORES Current LOS: 1 Anticipated DC Date: Planned Disposition: Primary Insurance: MEDICARE A & B Discharge Planning Comments: CM met with patient at bedside after explaining CM role and obtaining verbal consent. Patient lives at home with his Selina where he is independent with his care and plans to return there upon discharge. Patient feels this would be a safe discharge. CM discussed availability / needs of home health and medical equipment. Patient denies any discharge needs at this time. Patient states he will have his family drive him home upon discharge. Patient has home 02 he wears at night with [employer]. He also has a CPAP but he doesn't wear it. CM will continue to follow and assist as needed with discharge planning / needs. Demolition Specialist: Cassie Pedro DCPIA - Discharge Planning Initial Assessment Updated by [email or web address]: Cassie Pedro on 08/23/19 7:12 pm * Is the patient Alert and Oriented? Yes * How many steps to enter\exit or inside your home? 2 - ramp * PCP TRISTIN * Pharmacy [facility] [place] * Preadmission Environment Home with Family * ADLs Independent * Other Equipment WALKER, CPAP, HOME 02 * List name and contact numbers for known caregivers / representatives who currently or will assist patient after discharge: GIACOMO COLE - SPOUSE- [phone] JESUS KIRBY - DAUGHTER- [phone] MELLISA COLE - SON - [phone] AIDA COLE - SON - [phone] BARTOLO - DAUGHTER - [phone] * Verbal permission to speak to the caregivers and representatives has been obtained from the patient. Yes * Community resources currently utilized None * Additional services required to return to the preadmission environment? No * Can the patient safely return to the preadmission environment? Yes * Has this patient been hospitalized within the prior 30 days at any hospital? No Coverage Notice Reviewer: [id number] - Cassie Pedro Notice Issued Date-Time: 08/27/2019 15:00 Notice Type: Patient Choice Letter Notice Delivered To: Patient Relationship to Patient: Self Predatory Game Hunter Name: Delivery Method: - Estefania Days: Prior Verbal Notification: Recipient Understood Notice: Recipient Signature: Med Rec Note Co-signed by Attending: Coverage Notice Comment: Reviewer: [email or web address] Tamera Lara Notice Issued Date-Time: 08/29/2019 11:59 Notice Type: IM Discharge Notice Notice Delivered To: Patient Relationship to Patient: Predatory Game Hunter Name: Delivery Method: HAND - Hand Delivered Estefania Days: Prior Verbal Notification: Recipient Understood Notice: Yes Recipient Signature: Yes Med Rec Note Co-signed by Attending: Coverage Notice Comment: Last DP export: 08/29/19 11:05 Patient Name: RAGHAVENDRA COLE Page [id number] at 1559 All edits/amendments must be made on the electronic document DICTATION DATE: 08/29/191558 RESPIRATORY CARE PROGRAM DIRECTOR: SANGEETHA 08/29/19 155 RPT#: [id number] DC DATE: STATUS: ADM IN [facility] [address] [place] [address] END OF REPORT
--- NOTE | 2019-08-29 16:24 | NUR ---
Rehab Note- Acute INpatient Rehab prescreen order received. The patient is a good inpatient acute rehab candidate. Have visted with he & his at bedside- they are in agreeance with [facility] Acute Inpatient REhab. Spoke with his nurse- has a pending CT of spine. Will accept when medically stable and ready for discharge from the acute hospital. Will follow at this time. THank you for this referral! Micaela Barton RN Clinical Liaison, [facility] Rehab
--- NOTE | 2019-08-29 16:25 | MORECARE ---
CASE MANAGEMENT DISCHARGE SUMMARY PATIENT: RAGHAVENDRA COLE GARY UNIT: [id number] ADM DATE: 08/22/19 AGE: 78 : 42 SEX: M ROOM/BED: D[facility] AUTHOR: ALEXANDRO GARCIA PHYSICIAN: REFERRING PHYSICIAN: SHO FLORES MD DATE OF SERVICE: 08/29/19 Discharge Plan Patient Name: RAGHAVENDRA COLE Facility: [facility]:[place] : 1940 Planned Disposition: Anticipated Discharge Date: Discharge Date: Expected LOS: Initial Reviewer: [email or web address] Initial Review Date: 08/23/2019 Generated: 08/29/19 5:25 pm Comments DCP- Discharge Planning Updated by [id number]: Kandi Lara on 08/29/19 11:[address] Patient Name: RAGHAVENDRA COLE Admission Status: Urgent Accout number: [id number] Admission Date: 08-22-2019 : 1940 Admission Diagnosis: Attending: SHO FLORES Current LOS: 7 Anticipated DC Date: Planned Disposition: Primary Insurance: MEDICARE A & B Discharge Planning Comments: PATIENT [facility]. AYAAN IS COMING TO TALK WITH HIM AND HIS . I SPOKE WITH [facility] AND THEY WILL NEED AN UPDATED PROGRESS NOTE FAXED TO THEM. CM WILL CALL THEM WHEN HE IS TO DC TO HOME. IMM SIGNED. Sewer And Cutter Finger Buff Material: Kandi Lara DCP- Discharge Planning Updated by [email or web address]: Cassie Pedro on 08/28/19 7:[address] CM received order for eval for portable 02 and nebulizer. Walk test completed today and orders faxed to [facility] this evening. Patient will potentially discharge tomorrow. CM will continue to follow and assist as needed with discharge planning / needs DCP- Discharge Planning Updated by [id number]: Cassie Pedro on 08/27/19 5:[address] CM met with patient and spouse regarding DME. ISSA signed for [facility] [place]. Patient will need walk test closer to discharge to see if he qualifies for portable 02. Patient will also need a nebulizer upon discharge. CM will continue to follow and assist as needed with discharge planning / needs. DCP- Discharge Planning Updated by [id number]: Cassie Pedro on 08/23/19 6:[address] Patient Name: RAGHAVENDRA COLE Admission Status: Urgent Accout number: [id number] Admission Date: 08-22-2019 : 1940 Admission Diagnosis: Attending: SHO FLORES Current LOS: 1 Anticipated DC Date: Planned Disposition: Primary Insurance: MEDICARE A & B Discharge Planning Comments: CM met with patient at bedside after explaining CM role and obtaining verbal consent. Patient lives at home with his Selina where he is independent with his care and plans to return there upon discharge. Patient feels this would be a safe discharge. CM discussed availability / needs of home health and medical equipment. Patient denies any discharge needs at this time. Patient states he will have his family drive him home upon discharge. Patient has home 02 he wears at night with [employer]. He also has a CPAP but he doesn't wear it. CM will continue to follow and assist as needed with discharge planning / needs. Sewer And Cutter Finger Buff Material: Cassie Pedro DCPIA - Discharge Planning Initial Assessment Updated by [id number]: Cassie Pedro on 08/23/19 7:12 pm * Is the patient Alert and Oriented? Yes * How many steps to enter\exit or inside your home? 2 - ramp * PCP TRISTIN * Pharmacy [facility] [place] * Preadmission Environment Home with Family * ADLs Independent * Other Equipment WALKER, CPAP, HOME 02 * List name and contact numbers for known caregivers / representatives who currently or will assist patient after discharge: GIACOMO COLE - SPOUSE- [phone] JESUS KIRBY - DAUGHTER- [phone] MELLISA COLE - SON - [phone] AIDA COLE - SON - [phone] BARTOLO - DAUGHTER - [phone] * Verbal permission to speak to the caregivers and representatives has been obtained from the patient. Yes * Community resources currently utilized None * Additional services required to return to the preadmission environment? No * Can the patient safely return to the preadmission environment? Yes * Has this patient been hospitalized within the prior 30 days at any hospital? No Coverage Notice Reviewer: [id number] - Cassie Pedro Notice Issued Date-Time: 08/27/2019 15:00 Notice Type: Patient Choice Letter Notice Delivered To: Patient Relationship to Patient: Self Stock Mover Name: Delivery Method: - Estfeania Days: Prior Verbal Notification: Recipient Understood Notice: Recipient Signature: Med Rec Note Co-signed by Attending: Coverage Notice Comment: Reviewer: [email or web address] Tamera Lara Notice Issued Date-Time: 08/29/2019 11:59 Notice Type: IM Discharge Notice Notice Delivered To: Patient Relationship to Patient: Stock Mover Name: Delivery Method: HAND - Hand Delivered Estefania Days: Prior Verbal Notification: Recipient Understood Notice: Yes Recipient Signature: Yes Med Rec Note Co-signed by Attending: Coverage Notice Comment: Last DP export: 08/29/19 2:59 Patient Name: RAGHAVENDRA COLE Page [phone] at 1625 All edits/amendments must be made on the electronic document DICTATION DATE: 08/29/191623 TEMPLATE FITTER: SANGEETHA 08/29/191623 RPT#: [id number] DC DATE: STATUS: ADM IN [facility] [address] [place] [address] END OF REPORT
--- NOTE | 2019-08-29 16:54 | NUR ---
MEAL TRAY DELIVERED. PT REFUSED TO EAT AT THIS TIME. STATES THAT HE IS NOT HUNGRY JUST WANTS TO GO BACK TO BED. ASSISTED TO BED. PULLED UP AND REPOSITIONED FOR COMFORT. 2 PILLOWS PLACED UNDER LE. DENIES FURTHER NEEDS AT THIS TIME. WILL CONTINUE TO MONITOR.
--- NOTE | 2019-08-29 17:43 | NUR ---
FAMILY CONCERN THAT PT MIGHT HAVE DVT DUE TO PAIN IN LOWER EXTREMITIES. DR. CROW PAGED AT THIS TIME TO NOTIFY OF FAMILY'S CONCERN.
--- NOTE | 2019-08-29 17:48 | NUR ---
CALLED RECEIVED FROM DR. NATION. EXPLAINED THAT FAMILY WAS CONCERN ABOUT PT'S LEG PAIN POSSIBLY BEING DUE TO DVT. PT IS ON LOVENOX AND COUMADIN. PT DESCRIBES BURNING SENSATION ON SIDE OF UPPER THIGHS. DR. NATION STATED TO ADDRESS IT WITH DR. CROW IN THE MORNING IF PAIN CONTINUES.
--- NOTE | 2019-08-29 19:30 | NUR ---
PT AROUSES EASILY, A/OX4, VOICES NEEDS, O2 @ 2L VIA N/C, LEFT PIV INTACT AND SL, MIDSTERNAL INCISION OPEN TO AIR, PT USES URINAL AD FLACO, NO C/O @ THIS TIME
--- NOTE | 2019-08-29 21:30 | NUR ---
PT AWAKE, TAKES PO MEDS WITHOUT DIFFICULTY, VOIDED X1 IN URINAL, VITALS STABLE
--- NOTE | 2019-08-29 23:00 | NUR ---
RESTING QUIETLY WITH EYES CLOSED, URINAL IN REACH, WILL CONT TO MONITOR
[2019-08-30] VITALS (16 sets, daily range): BP systolic 112–158; BP diastolic 58–81
--- NOTE | 2019-08-30 01:00 | NUR ---
PT RESTING QUIETLY WITH EYES CLOSED, CALL LIGHT IN REACH, VITALS STABLE
--- NOTE | 2019-08-30 03:00 | NUR ---
PT AWAKE, C/O PAIN @ SURGICAL SITE, GIVEN PERCOCET PO, WILL CONT TO MONITOR
--- NOTE | 2019-08-30 05:15 | NUR ---
pt returned from xray via w/c, up to chair at bedside, bath done with assist, no distress noted
[2019-08-30 05:56] LABS: HEMATOCRIT 33.3 % (42.0-54.0); HEMOGLOBIN 10.5 g/dL (13.5-17.5); MCH 29.8 pg (26.0-34.0); MCHC 31.5 g/dL (31.0-37.0); MCV 94.6 fL (80.0-100.0); MEAN PLATELET VOLUME 10.2 fL (7.4-10.4); RBC 3.52 10x6/uL (4.20-6.10); RDW 17.5 % (11.5-14.5); WBC 8.4 10x3/uL (4.8-10.8)
[2019-08-30 06:04] LABS: INR 1.17 (0.85-1.17); PROTIME 14.4 SECONDS (11.6-15.0)
[2019-08-30 06:28] LABS: ALBUMIN 2.5 g/dL (3.4-5.0); ANION GAP 9.8 mmol/L (8-16); BILIRUBIN - TOTAL 0.53 mg/dL (0.2-1.3); CALCIUM 9.2 mg/dL (8.5-10.1); CARBON DIOXIDE 30.2 mmol/L (21.0-32.0); CREATININE - SERUM 1.6 mg/dL (0.6-1.3); PROTEIN - SERUM 6.2 g/dL (6.4-8.2)
--- NOTE | 2019-08-30 07:53 | NUR ---
PT UP IN CHAIR. BREAKFAST TRAY SERVED. PT STATES" IM NOT GOING TO EAT". PT DEMANDING TO HAVE A 3RD PILLOW PLACED UNDER HIS FEET IN RECLINER. ENCOURAGED ACTIVITY AND MEAL. PT CONTINUES TO REFUSE.
--- NOTE | 2019-08-30 09:28 | NUR ---
NUTRITION F/U CHART REVIEWED, PT VISIT. PT REFUSED LAST TWO MEALS. STATES HE IS "JUST NOT HUNGRY". DENIES CONSTIPATION. ENCOURAGED PT TO TRY TO EAT A LITTLE MORE. RD FOLLOWING
--- NOTE | 2019-08-30 09:49 | NUR ---
PT C/O BOTH LEGS HURTING. ASKING FOR PO PAIN MEDS. MEDS GIVEN. AT BS.
--- NOTE | 2019-08-30 10:00 | NUR ---
DR FLORES HERE ON ROUNDS.
--- NOTE | 2019-08-30 10:25 | NUR ---
DOPPLER TO BILAT FEET BOTH DORSALIS PEDIS AND POSTERIOR TIBIAL EASILY TO DOPPLER. REPORTED TO DR FLORES WHILE HERE ON ROUNDS.
--- NOTE | 2019-08-30 10:51 | NUR ---
PT REFUSED PT. STATES "WANT TO GO BACK TO BED". ENCOURAGED TO WALK WITH PT. EXPLANED TO PT THAT HE HAS TO BE UP FOR ALL MEALS. PT STATES THAT HE IS NOT GOING TO EAT.
--- NOTE | 2019-08-30 12:17 | NUR ---
PT C/O RT UPPER THIGH PAIN. ASSISTED BACK TO BED AFTER LUNCH.
--- NOTE | 2019-08-30 15:05 | NUR ---
Rehab Note- Continue to follow at this time. Still completing work up on LEs due to acute pain. Now refusing to ambulate with therapy d/t increased pain. Will continue to follow at this time. Micaela Barton RN Clinical Liaison, [facility] Rehab
--- NOTE | 2019-08-30 16:09 | NUR ---
ELEVATED LLE ON 2 PILLOWS. INSTRUCTED TO NOT RUB TO PT AND FAMILY. EXPLANED RATIONALE AND TX.
--- NOTE | 2019-08-30 16:55 | NUR ---
PT REFUSED SUPPER. OTILIA ORDERED.
--- NOTE | 2019-08-30 19:00 | NUR ---
ASSESSMENT COMPLETED. PT LAYING BACK IN BED WATCHING TV. CALL LIGHT IN REACH. LEFT LEG ELEVATED. NO SCD ON D/T DVT LEFT LEG. PEDAL PULSES PALP BILATERALLY. DENIES ANY NEEDS AT THIS TIME.
--- NOTE | 2019-08-30 19:58 | NUR ---
ORAL CARE DONE WITH PERIDEX
--- NOTE | 2019-08-30 21:00 | NUR ---
LAYING BACK IN BED WATCHING TV. CALL LIGHT IN REACH. NO NEEDS AT THIS TIME. SON AT BEDSIDE. LEFT LEG CONTS TO BE ELEVATED
--- NOTE | 2019-08-30 23:00 | NUR ---
PATIENT LAYING IN BED. RE-ASSESSMENT COMPLETED. VOIDED X 1 VIA URINAL, 225 ML OUTPUT. O2 AT 1L VIA NC. O2 SAT DROPPED TO 90% WITH O2 OFF WHILE ASLEEP SO OXYGEN PLACED BACK ON. DENIES ANY SOB. CALL LIGHT IN REACH. LEFT LEG ELEVATED X 2 PILLOWS. PEDAL PULSES PALP BILATERALLY.
[2019-08-31] VITALS (23 sets, daily range): BP systolic 95–151; BP diastolic 53–75
--- NOTE | 2019-08-31 01:00 | NUR ---
PT LAYING BACK IN BED, CALL LIGHT IN REACH. DENIES ANY NEEDS AT THIS TIME. LEFT LEG CONTINUES TO BE ELEVATED X 2 PILLOWS. NO CHANGES FROM PREVIOUS ASSESSMENT.
--- NOTE | 2019-08-31 03:01 | NUR ---
REASSESSMENT COMPLETED. PATIENT LAYING IN BED, EYES CLOSED UPON ENTERING. AWAKES EASILY TO NAME. DENIES ANY NEEDS. NO CHANGES FROM LAST ASSESSMENT. LEFT LEG ELEVATED X 2 PILLOWS. PALP MERCEDEZ PEDAL PULSES. NO SWELLING NOTED AT THIS TIME. DENIES ANY PAIN.
--- NOTE | 2019-08-31 05:00 | NUR ---
PATIENT LAYING IN BED, EYES OPEN. STATES PERCOCET HELPED AND IS READY FOR BATH. BATH COMPLETED WITH MODERATE ASSIST IN BED D/T DVT. VSS. CALL LIGHT IN REACH. DENIES ANY NEEDS AT THIS TIME. LEGS ELEVATED AND PALP MERCEDEZ PEDAL PULSES PRESENT. NO SWELLING NOTED MERCEDEZ.
[2019-08-31 06:23] LABS: BASOPHILS 0.1 % (0-2); EOSINOPHILS 1.2 % (0-7); HEMATOCRIT 30.1 % (42.0-54.0); HEMOGLOBIN 9.5 g/dL (13.5-17.5); IMMATURE GRANULOCYTES 4.2 % (0-5); LYMPHOCYTES 9.7 % (15-50); MCH 30.3 pg (26.0-34.0); MCHC 31.6 g/dL (31.0-37.0); MCV 95.9 fL (80.0-100.0); MEAN PLATELET VOLUME 10.3 fL (7.4-10.4); MONOCYTES 11.2 % (2-11); NEUTROPHILS 73.6 % (40-80); PLATELET COUNT 275 10x3/uL (130-400); RBC 3.14 10x6/uL (4.20-6.10); RDW 17.6 % (11.5-14.5); WBC 8.2 10x3/uL (4.8-10.8)
[2019-08-31 06:48] LABS: INR 1.39 (0.85-1.17); PROTIME 16.5 SECONDS (11.6-15.0)
[2019-08-31 07:06] LABS: ANION GAP 11.7 mmol/L (8-16); CALCIUM 9.2 mg/dL (8.5-10.1); CARBON DIOXIDE 28.2 mmol/L (21.0-32.0); CREATININE - SERUM 1.5 mg/dL (0.6-1.3); MAGNESIUM - SERUM 2.1 mg/dL (1.8-2.4); PHOSPHOROUS 4.5 mg/dL (2.5-4.9); POTASSIUM - SERUM 4.9 mmol/L (3.5-5.1)
--- NOTE | 2019-08-31 10:12 | NUR ---
0830-C/O OF GENERALIZED PAIN-LOWER BACK -BOTH LEGS CHEST-PERCOCET 5 PO GIVEN-LINEN CHANGE DONE-SPILLED URINE -- 0900-DR CROW AT BEDSIDE-ADDRESSED PT CONCERNS AND DISCUSSED COURSE OF ACTION RENAL SERVICES NURSE PRACTITIONER Harsha HURTADO AT [facility] RN AT [facility]-STRESSED BEDREST AT THIS TIME ORDERED BY DR MARTINEZ- AT BEDSIDE
--- NOTE | 2019-08-31 14:21 | NUR ---
AMBULATED IN HALLWAY WITH PHYSICAL THERAPY-TOLERATED WELL-REQUIRED O2 AT 2L--ASSISTED TO BED AND BOTH LEGS ELEVATED
--- NOTE | 2019-08-31 17:48 | NUR ---
1445-PT TO XRAY VIA WHEELCHAIR-TOLERATED WELL-RETURNED TO BED AND BOTH LEGS ELEVATED ON PILLOWS-DENIES INCREASED PAIN TO EITHER LEG
--- NOTE | 2019-08-31 19:00 | NUR ---
REPORT RECEIVED. RECEIVED PATIENT IN BED. AWAKE AND ALERT. ORIENTED X 4. MONITORS CONNECTED TO PATIENT WITH ALARMS SET. VSS. CALL LIGHT IN REACH AND ABLE TO UTILIZE TO MAKE NEEDS KNOWN.
--- NOTE | 2019-08-31 21:00 | NUR ---
RESTING WITH EYES CLOSED, EASILY ROUSED AND ALERT. VSS
--- NOTE | 2019-08-31 23:00 | NUR ---
AWAKE AND ALERT. VSS. REASSESSMENT COMPLETED PER FLOW SHEET WITH NO ACUTE DISTRESS OBSERVED. CALL LIGHT IN REACH
[2019-09-01] VITALS (22 sets, daily range): BP systolic 108–138; BP diastolic 53–79
--- NOTE | 2019-09-01 01:00 | NUR ---
RESTING WITH EYES CLOSED, EASILY ROUSED AND ALERT. VSS
[2019-09-01 05:43] LABS: INR 1.78 (0.85-1.17); PROTIME 20.1 SECONDS (11.6-15.0)
[2019-09-01 08:33] LABS: BASOPHILS 0.5 % (0-2); HEMATOCRIT 32.6 % (42.0-54.0); IMMATURE GRANULOCYTES 3.8 % (0-5); LYMPHOCYTES 11.7 % (15-50); MCH 30.4 pg (26.0-34.0); MCHC 30.7 g/dL (31.0-37.0); MONOCYTES 9.3 % (2-11); NEUTROPHILS 73.7 % (40-80); PLATELET COUNT 279 10x3/uL (130-400); RBC 3.29 10x6/uL (4.20-6.10); WBC 7.9 10x3/uL (4.8-10.8)
[2019-09-01 08:37] LABS: MCV 99.1 fL (80.0-100.0)
[2019-09-01 09:26] LABS: ANION GAP 9.3 mmol/L (8-16); CALCIUM 8.9 mg/dL (8.5-10.1); CARBON DIOXIDE 28.5 mmol/L (21.0-32.0); CREATININE - SERUM 1.6 mg/dL (0.6-1.3); POTASSIUM - SERUM 4.8 mmol/L (3.5-5.1)
--- NOTE | 2019-09-01 09:49 | NUR ---
0745-ASSISTED TO BEDSDIE CHAIR -ASSIST OF 2 NURSES- 0930-PERCOCET 5MG PO GIVEN AND AMBULATED WITH PHYSICAL [id number] STRONG CAJOULING-ASSISTED TO BED REQUESTED BY PT
--- NOTE | 2019-09-01 17:59 | NUR ---
1030-DR TROTTER AT BEDSIDE AND SPOKE WITH PT AND FAMILY OF COURSE OF TREATMENT AND RECOMMENDATION TO INCREASE WALKING TO PREVENT FURTHER DVT FROM [place]-RECOMMENDED TO INCREASE TO 15MG COUMADIN TODAY DOSE -AND WILL DISCUSS WITH DR MARTINEZ 1215-DR MARTINEZ AT [facility] -AGREED WITH COUMADIN RECOMMENDATION-INFORMED OF POOR PAIN RELIEF WITH CURRENT MEDICATION REGIMEN-ORDERS RECIEVED AND NOTED 1330-PERCOCET 10MG PO GIVEN -FAMILY AT BEDSIDE AND INCREASED PT COOPERATION FOR OUT OF BED AND AMBULATION 1415-AMBULATED WITH PHYSICAL THERAPY 1430-ASSISTED TO BEDSIDE COMMODE- 1445-ASSISTED BACK TO BED 1630-PT APPEARS TO BE RESTING COMFORTABLY 1815-FAMILY AT BEDSIDE WITH PT -PT DENIES PAIN AT THIS TIME
--- NOTE | 2019-09-01 19:00 | NUR ---
REPORT RECEIVED. RECEIVED PATIENT IN BED AWAKE ALERT AND ORIENTED X 4. MONITORS CONNECTED TO PATIENT WITH ALARMS SET. VSS. ASSESSMENT COMPLETED PER FLOW SHEET WITH NO ACUTE DISTRESS OBSERVED. BLE ELEVATED. IV LEFT HAND INTACT/SALINE LOCKED WITH SWAB CAP COVERING UNUSED PORT. CALL LIGHT IN REACH AND ABLE TO UTILIZE TO MAKE NEEDS KNOWN.
--- NOTE | 2019-09-01 19:23 | NUR ---
ORAL CARE DONE WITH PERIDEX
--- NOTE | 2019-09-01 21:00 | NUR ---
PM MEDS TAKENT WITHOUT DIFF. VSS. CALL LIGHT IN REACH
--- NOTE | 2019-09-01 23:00 | NUR ---
REASSESSMENT COMPLETED PER FLOW SHEET WITH NO ACUTE DISTRESS OBSERVED. VSS. CALL LIGHT IN REACH
[2019-09-02] VITALS (14 sets, daily range): BP systolic 108–135; BP diastolic 54–72
--- NOTE | 2019-09-02 01:00 | NUR ---
RESTING WITH EYES CLOSED, EASILY ROUSED AND ALERT. VSS
--- NOTE | 2019-09-02 01:00 | NUR ---
AWAKE AND ALERT. VSS. O2 97% ON 02 @ 1L/MIN PER NC. DENIES SOB . 02 REMOVED AT THIS TIME. PATIENT INSTRUCTED TO DEEP BREATHE AND COUGH. INCENTIVE SPIROMETER USED. 02 SAT 92% ON RA WILL MONITOR. CALL LIGHT IN REACH.
--- NOTE | 2019-09-02 03:00 | NUR ---
RESTING WITH EYES CLOSED, EASILY ROUSED AND ALERT. VSS
--- NOTE | 2019-09-02 05:00 | NUR ---
AWAKE AND ALERT. CHG BATH GIVEN. LINENS CHANGED. DRESSING TO LEFT CHEST CHANGED. NICOLE WITHOUT DIFF. CALL LIGHT IN REACH
[2019-09-02 09:04] LABS: INR 2.09 (0.85-1.17); PROTIME 22.8 SECONDS (11.6-15.0)
[2019-09-02] MEDS ORDERED: FLOMAX0.4 MG PO (11:20)
[2019-09-02] MEDS ORDERED: Retacrit SC (11:20)
[2019-09-02] MEDS ORDERED: IPRAT-ALBUT 0.5-3 ML UPD (11:20)
[2019-09-02] MEDS ORDERED: LOPRESSOR25 MG PO (11:21)
[2019-09-02] MEDS ORDERED: COUMADIN7.5 MG PO (11:21)
[2019-09-02] MEDS ORDERED: HEMOCYTE PLUS C1 CAP PO (11:21)
[2019-09-02] MEDS ORDERED: PERCOCET 10-321 EAC1 PO (11:23)
[2019-09-02] MEDS ORDERED: PULMICORT0.5 MG/21 UPD (11:23)
[2019-09-02] MEDS ORDERED: MIRALAX17 GM PO (11:25)
[2019-09-02] MEDS ORDERED: HUMULIN R100 U/ML SC (11:26)
--- NOTE | 2019-09-02 13:15 | NUR ---
0700 PT RECIEVED ALERT AND ORIENTED ASSISTED UP TO CHAIR DENIES ALL NEEDS, SEE SHIFT ASSESSMENT FOR DETAILS 0915 AMBULATED WITH PT AND ASSISTED TO BED 1100 REFUSED LUNCH AND ALL ALTERNATIVES
--- NOTE | 2019-09-02 14:11 | NUR ---
REPORT CALLED TO PRAVIN COFFEY TO DC TO REHAB ROOM [id number]
--- NOTE | 2019-09-02 15:03 | NUR ---
PIV REMOVED AND PT TAKEN TO REHAB 1111B AT 1425
--- NOTE | 2019-09-02 20:12 | MORECARE ---
CASE MANAGEMENT DISCHARGE SUMMARY PATIENT: RAGHAVENDRA COLE [place] UNIT: [id number] ADM DATE: 08/22/19 AGE: 78 : [birth year] SEX: M ROOM/BED: D.[facility] AUTHOR: ALEXANDRO GARCIA PHYSICIAN: REFERRING PHYSICIAN: SHO FLORES MD DATE OF SERVICE: 09/02/19 Discharge Plan Patient Name: RAGHAVENDRA COLE Facility: [facility]:[place] : 1940 Planned Disposition: Anticipated Discharge Date: Discharge Date: 09/02/2019 Expected LOS: Initial Reviewer: [email or web address] Initial Review Date: 08/23/2019 Generated: 09/02/19 9:12 pm DCP- Discharge Planning Updated by [email or web address]: Kandi Lara on 08/29/19 12:[address] Patient Name: RAGHAVENDRA COLE Admission Status: Urgent Accout number: [id number] Admission Date: 08-22-2019 : 1940 Admission Diagnosis: Attending: SHO FLORES Current LOS: 7 Anticipated DC Date: Planned Disposition: Primary Insurance: MEDICARE A & B Discharge Planning Comments: PATIENT WANTS TO GO TO REPLACED BY [facility] IF POSSIBLE. AYAAN IS COMING TO TALK WITH HIM AND HIS . I SPOKE WITH [facility] AND THEY WILL NEED AN UPDATED PROGRESS NOTE FAXED TO THEM. CM WILL CALL THEM WHEN HE IS TO DC TO HOME. IMM SIGNED. Health Navigator: Kandi Lara DCP- Discharge Planning Updated by [email or web address]: Cassie Pedro on 08/28/19 8:[address] CM received order for eval for portable 02 and nebulizer. Walk test completed today and orders faxed to [facility] this evening. Patient will potentially discharge tomorrow. CM will continue to follow and assist as needed with discharge planning / needs DCP- Discharge Planning Updated by [email or web address]: Cassie Pedro on 08/27/19 6:[address] CM met with patient and spouse regarding DME. ISSA signed for [facility]. Patient will need walk test closer to discharge to see if he qualifies for portable 02. Patient will also need a nebulizer upon discharge. CM will continue to follow and assist as needed with discharge planning / needs. DCP- Discharge Planning Updated by [email or web address]: Cassie Pedro on 08/23/19 7:[address] Patient Name: RAGHAVENDRA COLE Admission Status: Urgent Accout number: [id number] Admission Date: 08-22-2019 : 1940 Admission Diagnosis: Attending: SHO FLORES Current LOS: 1 Anticipated DC Date: Planned Disposition: Primary Insurance: MEDICARE A & B Discharge Planning Comments: CM met with patient at bedside after explaining CM role and obtaining verbal consent. Patient lives at home with his Selina where he is independent with his care and plans to return there upon discharge. Patient feels this would be a safe discharge. CM discussed availability / needs of home health and medical equipment. Patient denies any discharge needs at this time. Patient states he will have his family drive him home upon discharge. Patient has home 02 he wears at night with [employer]. He also has a CPAP but he doesn't wear it. CM will continue to follow and assist as needed with discharge planning / needs. Health Navigator: Cassie Pedro DCPIA - Discharge Planning Initial Assessment Updated by [email or web address]: Cassie Pedro on 08/23/19 7:12 pm * Is the patient Alert and Oriented? Yes * How many steps to enter\exit or inside your home? 2 - ramp * PCP TRISTIN * Pharmacy [facility] * Preadmission Environment Home with Family * ADLs Independent * Other Equipment WALKER, CPAP, HOME 02 * List name and contact numbers for known caregivers / representatives who currently or will assist patient after discharge: GIACOMO COLE - SPOUSE- [phone] JESUS KIRBY - DAUGHTER- [phone] MELLISA COLE - SON - [phone] AIDA COLE - SON - [phone] BARTOLO - DAUGHTER - [phone] * Verbal permission to speak to the caregivers and representatives has been obtained from the patient. Yes * Community resources currently utilized None * Additional services required to return to the preadmission environment? No * Can the patient safely return to the preadmission environment? Yes * Has this patient been hospitalized within the prior 30 days at any hospital? No Coverage Notice Reviewer: [email or web address] - Cassie Pedro Notice Issued Date-Time: 08/27/2019 15:00 Notice Type: Patient Choice Letter Notice Delivered To: Patient Relationship to Patient: Self Wood Furniture Assembler Name: Delivery Method: - Estefania Days: Prior Verbal Notification: Recipient Understood Notice: Recipient Signature: Med Rec Note Co-signed by Attending: Coverage Notice Comment: Reviewer: [email or web address] Tamera Lara Notice Issued Date-Time: 08/29/2019 11:59 Notice Type: IM Discharge Notice Notice Delivered To: Patient Relationship to Patient: Wood Furniture Assembler Name: Delivery Method: HAND - Hand Delivered Estefania Days: Prior Verbal Notification: Recipient Understood Notice: Yes Recipient Signature: Yes Med Rec Note Co-signed by Attending: Coverage Notice Comment: Reviewer: [email or web address] Tamera Pedro Notice Issued Date-Time: 09/02/2019 13:40 Notice Type: IM Discharge Notice Notice Delivered To: Family Member Relationship to Patient: Spouse Wood Furniture Assembler Name: SELINA COLE Delivery Method: HAND - Hand Delivered Estefania Days: Prior Verbal Notification: Recipient Understood Notice: Yes Recipient Signature: Yes Med Rec Note Co-signed by Attending: Coverage Notice Comment: Last DP export: 08/29/19 4:25 Patient Name: RAGHAVENDRA COLE Page [id number] at 2011 All edits/amendments must be made on the electronic document DICTATION DATE: 09/02/192011 HARDWOOD FLOOR LAYER: SANGEETHA 09/02/192011 RPT#: [id number] DC DATE:09/02/19 STATUS: DIS IN [facility] [address] [place] [address] END OF REPORT
== END 2019-09-02 14:25 | DRG 235 ==
LOC: D.SDCHOLD 08-22 05:00 → D.CVICU 08-22 05:00 → D.SDCHOLD 08-22 07:30 → D.CVICU 08-22 12:30 → D.SDCHOLD 08-23 07:30 → D.CVICU 09-02 14:25
PROVIDERS: Internal Medicine; Internal Medicine Nephrology; ADMIT Thoracic Surgery (Cardiothoracic Vascular Surgery); ATTEND Thoracic Surgery (Cardiothoracic Vascular Surgery)
PROC: 021109W Bypass Coronary Artery, Two Arteries from Aorta with Autologous Venous Tissue, Open Approach (ICD-10-PCS; 2019-08-22)
PROC: 06BP0ZZ Excision of Right Saphenous Vein, Open Approach (ICD-10-PCS; 2019-08-22)
PROC: 5A1221Z Performance of Cardiac Output, Continuous (ICD-10-PCS; 2019-08-22)
PROC: B24BZZ4 Ultrasonography of Heart with Aorta, Transesophageal (ICD-10-PCS; 2019-08-22)
PROC: 02100Z9 Bypass Coronary Artery, One Artery from Left Internal Mammary, Open Approach (ICD-10-PCS; principal; 2019-08-22 07:30)
DX: I25.10 Atherosclerotic heart disease of native coronary artery without angina pectoris (principal); J96.01 Acute respiratory failure with hypoxia; J98.11 Atelectasis; J90 Pleural effusion, not elsewhere classified; D62 Acute posthemorrhagic anemia; D68.2 Hereditary deficiency of other clotting factors; I82.442 Acute embolism and thrombosis of left tibial vein; I12.9 Hypertensive chronic kidney disease with stage 1 through stage 4 chronic kidney disease, or unspecified chronic kidney disease; N18.3 Chronic kidney disease, stage 3 (moderate); J45.909 Unspecified asthma, uncomplicated; E03.9 Hypothyroidism, unspecified; E87.6 Hypokalemia; D3A.8 Other benign neuroendocrine tumors; Z79.01 Long term (current) use of anticoagulants; K21.9 Gastro-esophageal reflux disease without esophagitis; M10.9 Gout, unspecified; R53.81 Other malaise

== ENCOUNTER 2019-09-02 13:18 | Inpatient (IN) | payer MEDICARE, OTHER ==
[~2019-09-02] VITALS: Ht 177.8 cm; Wt 90.7 kg
[~2019-09-02 13:18] MED LIST changes: +COLCRYS0.6 MG PO; +FLOMAX0.4 MG PO; +GABAPENTIN100 MG PO; +HUMULIN R100 U/ML SC; +HYDROCHLOROTHIA25 MG PO; +IPRAT-ALBUT 0.5-3 ML UPD; +LOPRESSOR25 MG PO; +MIRALAX17 GM PO; +PERCOCET 10-321 EAC1 PO; +PULMICORT0.5 MG/21 UPD; +Retacrit SC
[2019-09-02 15:21] VITALS: BP 114/62; BMI 28.7
[2019-09-02 19:35] VITALS: BP 156/73
--- NOTE | 2019-09-02 19:35 | NUR ---
BEDSIDE REPORT COMPLETE. PT SITTING UP IN BED VISITING WITH FAMILY. DENIES ANY NEEDS OR PAIN. ALERT AND ORIENTED X4. NO SIGNS OF ACUTE DISTRESS NOTED. STERNUM, RIGHT LEG, AND ABDOMINAL INCISION WITHOUT S/S OF INFECTION ALL TANK TRUCK LOADER. VS STABLE. SHIFT ASSESSMENT COMPLETE. CL IN REACH. FALL PRECAUTIONS IN PLACE. WILL CONTINUE TO MONITOR
--- NOTE | 2019-09-03 00:41 | NUR ---
QUIET HOURS. PT LYING IN BED SUPINE EYES CLOSED RESTING QUIETLY. HOB 30 DEGREES. RR EVEN AND UNLABORED. CONTINUES ON 2L VIA NC. CL IN REACH
--- NOTE | 2019-09-03 03:12 | NUR ---
ASSISTED PT TO RESTROOM AND BACK TO BED WITH MIN ASSIST.
--- NOTE | 2019-09-03 04:12 | NUR ---
PT LYING IN BED EYES CLOSED RESTING. RR EVEN AND UNLABORED. CONTINUES ON 2L VIA NC. CL IN REACH
--- NOTE | 2019-09-03 06:43 | NUR ---
PT LYING IN BED EYES CLOSED RESTING. RR EVEN AND UNLABORED. CONTINUES ON 2L VIA NC. CL IN REACH
[2019-09-03 07:34] LABS: ANION GAP 9.4 mmol/L (8-16); CALCIUM 8.8 mg/dL (8.5-10.1); CARBON DIOXIDE 31.2 mmol/L (21.0-32.0); CREATININE - SERUM 1.6 mg/dL (0.6-1.3); POTASSIUM - SERUM 4.6 mmol/L (3.5-5.1)
[2019-09-03 07:57] LABS: PROTIME 26.4 SECONDS (11.6-15.0)
[2019-09-03 07:58] LABS: BASOPHILS 0.2 % (0-2); EOSINOPHILS 0.7 % (0-7); HEMATOCRIT 30.4 % (42.0-54.0); HEMOGLOBIN 9.5 g/dL (13.5-17.5); IMMATURE GRANULOCYTES 1.7 % (0-5); LYMPHOCYTES 10.4 % (15-50); MCH 30.4 pg (26.0-34.0); MCHC 31.3 g/dL (31.0-37.0); MEAN PLATELET VOLUME 9.7 fL (7.4-10.4); RBC 3.13 10x6/uL (4.20-6.10); RDW 18.1 % (11.5-14.5); WBC 8.1 10x3/uL (4.8-10.8)
[2019-09-03 08:00] LABS: MCV 97.1 fL (80.0-100.0); PLATELET COUNT 343 10x3/uL (130-400)
[2019-09-03 08:02] LABS: INR 2.52 (0.85-1.17)
[2019-09-03 08:09] VITALS: BP 145/73
--- NOTE | 2019-09-03 13:47 | NUR ---
PATIENT ADMITTED TO REHAB FROM ACUTE FLOOR. DR. CROW IS PATIENT PCP AND DME AT HOME IS A WALKER, C-PAP AND HOME 02. DISCHARGE PLANS ARE FOR PATIENT TO RETURN HOME WITH FAMILY. WILL CONTINUE TO FOLLOW WITH PATIENT.
[2019-09-03 14:57] VITALS: BMI 28.6
[2019-09-03 19:20] VITALS: BP 128/61
--- NOTE | 2019-09-03 19:20 | NUR ---
BEDSIDE REPORT COMPLETE. PT SITTING UP IN BED VISITING WITH FAMILY. DENIES ANY NEEDS OR PAIN. MIDSTERNUM, RIGHT LEG, ABDOMINAL INCISION WITHOUT S/S OF INFECTION ALL OPEN TO AIR. CONNIE HOSE ON. VS STABLE. SHIFT ASSESSMENT COMPLETE. CL IN REACH. FALL PRECAUTIONS IN PLACE. WILL CONTINUE TO MONITOR
--- NOTE | 2019-09-03 23:48 | NUR ---
QUIET HOURS. PT LYING IN BED SUPINE EYES CLOSED RESTING. HOB 30 DEGREES. RR EVEN AND UNLABORED. CONTINUES ON 2L VIA NC. CL IN REACH
--- NOTE | 2019-09-04 03:36 | NUR ---
PT LYING IN BED EYES CLOSED RESTING. HOB 30 DEGREES. NO SIGNS OF ACUTE DISTRESS NOTED. CL IN REACH
[2019-09-04 05:45] LABS: BASOPHILS 0.1 % (0-2); EOSINOPHILS 0.9 % (0-7); HEMATOCRIT 30.7 % (42.0-54.0); HEMOGLOBIN 9.5 g/dL (13.5-17.5); IMMATURE GRANULOCYTES 1.4 % (0-5); INR 2.88 (0.85-1.17); LYMPHOCYTES 11.2 % (15-50); MCH 30.2 pg (26.0-34.0); MCHC 30.9 g/dL (31.0-37.0); MCV 97.5 fL (80.0-100.0); MEAN PLATELET VOLUME 9.6 fL (7.4-10.4); MONOCYTES 8.9 % (2-11); NEUTROPHILS 77.5 % (40-80); PLATELET COUNT 340 10x3/uL (130-400); PROTIME 29.4 SECONDS (11.6-15.0); RBC 3.15 10x6/uL (4.20-6.10); RDW 18.2 % (11.5-14.5); WBC 8.1 10x3/uL (4.8-10.8)
[2019-09-04 05:48] LABS: ANION GAP 9.6 mmol/L (8-16); CALCIUM 8.7 mg/dL (8.5-10.1); CREATININE - SERUM 1.5 mg/dL (0.6-1.3); PHOSPHOROUS 3.6 mg/dL (2.5-4.9); POTASSIUM - SERUM 4.6 mmol/L (3.5-5.1)
--- NOTE | 2019-09-04 06:38 | NUR ---
PT LYING IN BED EYES CLOSED RESTING. RR EVEN AND UNLABORED. CONTINUES ON 2L VIA NC. CL IN REACH
[2019-09-04 07:48] VITALS: BP 151/77
--- NOTE | 2019-09-04 08:00 | NUR ---
SHIFT ASSMT COMPLETED.
--- NOTE | 2019-09-04 15:42 | NUR ---
CARE TEAM MEETING: PATIENT IS NEW TO THE UNIT AND IS STILL IN EVALUATION PROCESS. WILL CONTINUE TO FOLLOW WITH PATIENT AND WILL ASSIST WITH DISCHARGE NEEDS.
--- NOTE | 2019-09-04 16:00 | NUR ---
VISITING WITH DAUGHTER.
--- NOTE | 2019-09-04 20:05 | NUR ---
AWAKE AND ALERT. RESTING IN BED WITH RESPIRATIONS UNLABORED. NO DISTRESS NOTED. CALL LIGHT IN REACH.
[2019-09-04 21:32] VITALS: BP 126/76
--- NOTE | 2019-09-05 03:14 | NUR ---
INCONTINENT OF BM. INCONTINENCE CARE GIVEN AND ASSISTED BACK TO BED. RESTING NOW WITH NO ACUTE DISTRESS NOTED. COMPLIANT WITH STERNAL PRECAUTIONS.
--- NOTE | 2019-09-05 06:19 | NUR ---
RESTING AWAKE IN BED. HAS NOT SELPT MUCH THIS SHIFT. UP SEVERAL TIMES TO BATHROOM. BLOOD SUGAR 101. RESPIRATIONS UNLABORED. CALL LIGHT IN REACH.
[2019-09-05 06:38] LABS: INR 2.84 (0.85-1.17); PROTIME 29.1 SECONDS (11.6-15.0)
--- NOTE | 2019-09-05 08:00 | NUR ---
SHIFT ASSMT COMPLETED.BREAKFAST GIVEN.
[2019-09-05 08:34] VITALS: BP 153/63
--- NOTE | 2019-09-05 10:43 | NUR ---
PT IN THERAPY NO TX GIVEN
--- NOTE | 2019-09-05 12:00 | NUR ---
EATING LUNCH.VISITING WITH FAMILY.
[2019-09-05 13:27] VITALS: Ht 177.8 cm; Wt 90.7 kg
--- NOTE | 2019-09-05 13:38 | NUR ---
NUTRITION F/U PT WITH POOR PO INTAKE RECENT MEALS. IS TOLERATING GLUCERNA SHAKE WITH 100% INTAKE. WILL CONTINUE TO PROVIDE DIET, GLUCERNA SHAKE. ENCOURAGE PO INTAKE. RD FOLLOWING
--- NOTE | 2019-09-05 16:00 | NUR ---
RESTING QUIETLY.EATING LARGE HAMBURGER BROUGHT IN BY FAMILY.
--- NOTE | 2019-09-05 20:21 | NUR ---
AWAKE AND ALERT. RESTING IN BED WITH RESPIRATIONS UNLABORED. INCISION TO CABG SITE ON CHEST HEALIGN WITH SCABBING NOTED. ABDONIMAL DRAIN SITES HEALING WELL RIGHT LEG HARVEST SITES. USES STERNAL PRECAUTIONS INSTRUCTED. NO ACUTE DISTRESS NOTED. CALL LIGHT IN REACH.
[2019-09-05 21:12] VITALS: BP 131/63
--- NOTE | 2019-09-06 02:11 | NUR ---
SLEEPING IN BED WITH RESPIRATIONS UNLABORED. NO DISTRESS NOTED. CALL LIGHT IN REACH.
--- NOTE | 2019-09-06 05:40 | NUR ---
QUIET HOURS. RESTING IN BED WITH NO DISTRESS NOTED. CALL LIGHT IN REACH. CONTINUES TO USE STERNAL PRECAUTIONS PROPERLY. O2/2L ON PER NASAL CANNULA.
[2019-09-06 07:46] LABS: BASOPHILS 0.3 % (0-2); EOSINOPHILS 1.6 % (0-7); HEMATOCRIT 32.2 % (42.0-54.0); HEMOGLOBIN 9.8 g/dL (13.5-17.5); IMMATURE GRANULOCYTES 0.5 % (0-5); LYMPHOCYTES 9.7 % (15-50); MCH 29.9 pg (26.0-34.0); MCHC 30.4 g/dL (31.0-37.0); MCV 98.2 fL (80.0-100.0); MEAN PLATELET VOLUME 9.5 fL (7.4-10.4); MONOCYTES 8.3 % (2-11); NEUTROPHILS 79.6 % (40-80); PLATELET COUNT 363 10x3/uL (130-400); RBC 3.28 10x6/uL (4.20-6.10); WBC 6.4 10x3/uL (4.8-10.8)
[2019-09-06 07:52] LABS: ANION GAP 6.6 mmol/L (8-16); CALCIUM 8.8 mg/dL (8.5-10.1); CARBON DIOXIDE 32.7 mmol/L (21.0-32.0); CREATININE - SERUM 1.5 mg/dL (0.6-1.3); POTASSIUM - SERUM 4.3 mmol/L (3.5-5.1)
[2019-09-06 07:58] LABS: INR 2.78 (0.85-1.17); PROTIME 28.6 SECONDS (11.6-15.0)
[2019-09-06 08:00] VITALS: BP 129/70
--- NOTE | 2019-09-06 08:15 | NUR ---
PT RESTING IN BED WITH EYES OPEN CALL LIGHT IN REACH WILL MONITER
--- NOTE | 2019-09-06 10:06 | NUR ---
PT IN THERAPY NO TX GIVEN
--- NOTE | 2019-09-06 16:24 | NUR ---
ORDERS FOR HOME O2 FOR CONTINUOUS USE FAXED TO [facility], THEY WILL DELIVER A PORTABLE TANK TO PATIENT TODAY.
--- NOTE | 2019-09-06 17:59 | NUR ---
PT RESTING IN BED WITH EYES OPEN CALL LIGHT IN REACH NO PROBLEMS WILL MONITER
--- NOTE | 2019-09-06 20:00 | NUR ---
PATIENT RECEIVED SITTING UP IN BED WATCHING TV. ASSESSMENT & VITAL SIGNS DONE. INCISIONS HEALING ON RIGHT LEG. LEFT ARM PHLEBITIS PAINFUL. ARM BANDS REMOVED & NEW PLACED ON RIGHT ARM. BED LOW. ALARM ON. CALL LIGHT WITHIN REACH. WILL CONTINUE TO MONITOR.
[2019-09-06 20:32] VITALS: BP 136/62
--- NOTE | 2019-09-07 02:17 | NUR ---
I have reviewed this patient and I concur with the Shift Assessment completed by the Licensed Practical Nurse today this shift.
--- NOTE | 2019-09-07 03:55 | NUR ---
PATIENT EYES CLOSED. REPIRATIONS 18 & EVEN. BED LOW. CALL LIGHT WITHIN REACH. WILL CONTINUE TO MONITOR.
--- NOTE | 2019-09-07 05:55 | NUR ---
PATIENT FSBS 88. SNACK GIVEN. CALL LIGHT WITHIN REACH. WILL CONTINUE TO MONITOR.
[2019-09-07 06:05] LABS: INR 2.98 (0.85-1.17); PROTIME 30.2 SECONDS (11.6-15.0)
[2019-09-07 08:00] VITALS: BP 174/73
--- NOTE | 2019-09-07 08:00 | NUR ---
PATIENT IS ALERT/ORIENT. CALL LIGHT WITHIN REACH. VOICES NO NEEDS AT THIS TIME. WILL CONTINUE WITH PLAN OF CARE
--- NOTE | 2019-09-07 09:15 | NUR ---
DR Carla URBINA INTO SEE PATIENT. NEW ORDERS RECEIVED FOR DISCHARGE TO HOME.
--- NOTE | 2019-09-07 09:55 | RHP ---
PATIENT: RAGHAVENDRA COLE MEDICAL RECORD: [id number] ACCOUNT: [id number] LOCATION:[id number] : [birth year] ADMISSION DATE: 09/02/19 REHABILITATION HISTORY AND PHYSICAL EXAMINATION POST ADMISSION PHYSICIAN EXAMINATION DATE OF ADMISSION: 09/02/2019. ADMITTING DIAGNOSIS: Critical illness myopathy. HISTORY OF PRESENT ILLNESS: The patient is admitted secondary to high grade coronary artery disease in at least 3 of his vessels. He underwent a coronary artery bypass grafting on 08/22/2019. He has got a history of stage III chronic kidney disease, baseline creatinine is around 1.7. He had a CVA in the past, hypertension, coronary artery disease, got a factor V Leiden deficiency. He has got COPD, got a history of lung cancer. He has had a partial lobectomy in the past. He is chronically on O2. The patient has a history of spina bifida that was diagnosed at 43. He has got a history of gout, gastroesophageal reflux disease, and BPH. His creatinine elevated post-catheterization to 2.7, it is back down to 1.9. He has been seen in nephrology during his stay. He has a recent diagnosis of neuroendocrine tumor from the liver biopsy and has been on chemotherapy. He has been followed by oncology, Dr. Dumont. He has also had some postoperative lower extremity pain and burning. A CT shows that he has got degenerative changes in his back. He continued to have lower extremity pain and was unable to ambulate due to pain. He had a venous Doppler, it showed a DVT. He is currently on telemetry, having acute pain and burning in his lower extremities. He is requiring supplemental O2. He has got postop blood loss anemia, deconditioning, debility, proximal muscle weakness, impaired mobility, gait disturbance, high risk for falls and self-care deficits. These are all barriers to his discharged home. Lives at home with his . He is independent with mobility and ADLs in the past. He is currently set up for mod assist for his ADLs, mod assist for mobility. He and his family would like for him to return home at his prior level of functioning or better. COMORBIDITIES: Include acute hypoxic respiratory failure, atelectasis. He has got a history of factor V Leiden deficiency. He is on Coumadin. Neuroendocrine tumor, obstructive sleep apnea, hypothyroidism, acute blood loss anemia, electrolyte abnormalities, chronic kidney disease stage III, hypercoagulable state, status post coronary artery bypass grafting. He has got a history of lung disease, non-small cell lung cancer. PAST MEDICAL HISTORY: Significant for pulmonary carcinoid tumor, hypertension, sleep apnea, chronic kidney disease, hypothyroidism, hypercoagulable state, COPD, gout, spina bifida, peripheral neuropathy, osteoarthritis, COPD, coronary artery disease, asthma. PAST SURGICAL HISTORY: Includes right middle and right lower lobes removed by Dr. Stephenson, carotid endarterectomy, transurethral resection of the prostate, bilateral inguinal hernia repairs, 3-vessel coronary artery bypass grafting. ALLERGIES: IV DYE, IODINATED CONTRAST. CURRENT MEDICATIONS: Include Coumadin 7.5 mg daily, Cleocin 150 q.6 hours, lactobacillus daily, Christen 60 mg daily. He is on Epogen 2000 units daily, Flomax 0.4 mg daily. He is on folic acid 1 mg daily. He is on a multivitamin HISTORY AND PHYSICAL [id number] RAGHAVENDRA COLE daily, vitamin D 4000 units daily, aspirin 81 mg daily. He is on iron supplementation daily. He is on Protonix 40 mg daily, Synthroid 100 mcg daily, polyethylene glycol 17 grams in 8 ounces of water daily, Lopressor 12.5 mg b.i.d., Neurontin 100 mg b.i.d., Colace 100 mg t.i.d., Zyloprim 100 mg b.i.d., DuoNeb updrafts, budesonide 0.5 mg b.i.d. He is on intermediate resistant sliding scale with insulin, and colchicine 1.2 mg daily. HABITS: No current alcohol or tobacco use. FAMILY HISTORY: Noncontributory. SOCIAL HISTORY: The patient hopes to return back home and get back to his prior level of functioning. REVIEW OF SYSTEMS: GENERAL: Does complain of weakness and fatigue. HEENT: Denies cold, cough, or congestion. CARDIOVASCULAR: He denies chest pain. PHYSICAL EXAMINATION: VITAL SIGNS: Stable, afebrile. GENERAL: A well-developed gentleman in no acute distress, alert upon exam. HEENT: Normocephalic and atraumatic. Mucosa moist. NECK: Supple without adenopathy. LUNGS: Clear at this time. No wheezing, rhonchi, or rales. HEART: Regular rate and rhythm. No murmurs, rubs or gallops. ABDOMEN: Soft, benign, and nondistended. Positive bowel sounds times 4. EXTREMITIES: No clubbing, cyanosis or edema. NEUROLOGIC: He does have noted proximal muscle weakness. LABORATORY DATA: White count is 8.1, H&H of 9.5 and 30.4, and platelet count is noted to be 343. INR is 2.52. Sodium 133, potassium 4.6, BUN and creatinine of 28 and 1.6, and blood sugar is noted be 86. ASSESSMENT: A 78-year-old gentleman admitted to the rehab with a working diagnosis of disuse myopathy complicated by coronary artery bypass grafting and also by DVT. The patient has potential to make improvement. We instituted the following multidisciplinary therapies including not limited to physical, occupational, respiratory, speech, nutritional services, prosthetics and orthotics. Given his complex medical condition and risk for more complications, rehabilitation services cannot be at a low level of care such as senior living facility. PLAN: 1. Admit to [facility] rehab for an intensive inpatient therapy to include the following disciplines: A. Physical therapy to improve gait, all transfer skills and bed mobility to a modified independent level. B. Occupational therapy to improve activities of daily living to a modified independent level. C. Case management to assist with discharge planning and placement options. D. Nutrition to assist with nutritional needs. E. Rehabilitation nursing to assist in monitoring the patient's underlying medical conditions and to assist with any type of bowel or bladder management. 2. The patient's current medication and medical care will be continued. HISTORY AND PHYSICAL [id number] RAGHAVENDRA COLE 3. The patient will be placed on standard fall precautions. 4. The patient's estimated length of stay is approximately 7-10 days. 5. We will discuss this patient during care team staff meeting this week and we will follow closely. We will discuss with the care team tomorrow. TRANSINT:[id number] Voice Confirmation ID: [id number] DOCUMENT ID: [id number] ASHLEIGH notes whether there has been none or any medical/functional change since admission: - No change since prescreen. ASHLEIGH attests patient continues to be appropriate for IRF: - Continues to be appropriate. JAZIEL URBINA MD at 0955 CC: [id number] DICTATION DATE: 09/03/1925 WOOL PULLER: 09/03/19 1024 ADM IN [facility] [address] [facility]
[2019-09-07] MEDS ORDERED: PERCOCET 10-321 EAC1 PO (10:09)
--- NOTE | 2019-09-07 13:19 | NUR ---
PATIENTS FAMILY HERE TO TAKE PATIENT HOME. DISCHARGE INSTRUCTIONS GIVEN TO PATIENT AND PATIENTS FAMILY. DISCHARGE MEDICATIONS CALLED INTO [facility] [address]. PATIENT HELPED OUT TO CAR BY STAFF
--- NOTE | 2019-09-09 09:40 | NUR ---
PATIENT DISCHARGED HOME ON 09/07/19 WITH FAMILY. [facility] WILL PROVIDE THERAPY AT HOME. [facility] DELIVERED O2 TO PATIENT. DR. CROW 09/13/19 @ 11:40, DR. CHICAS 09/12/19 @ 9:00, DR. FLORES OFFICE WILL CALL PATIENT FOR AN APPOINTMENT WITH DR. TROTTER OFFICE TO DO THE SAME. INSTRUCTED DAUGHTER TO CALL OFFICE IF NO RESPONSE. PATIENT CHOICE FORM (HANDOUT GIVEN ) AND IMFM FORMS SIGNED, COPY GIVEN TO PATIENT AND FILED IN CHART . DISCHARGE INSTRUCTIONS FAXED TO PCP, HOME HEALTH AND REVIEWED WITH PATIENT PER NURSE
== END 2019-09-07 13:20 | disposition home health service (06) | DRG 91 ==
LOC: D.REHAB 13:18
PROVIDERS: Internal Medicine Nephrology; ADMIT Emergency Medicine; ATTEND Emergency Medicine
DX: G72.81 Critical illness myopathy (principal); J96.01 Acute respiratory failure with hypoxia; J98.11 Atelectasis; D62 Acute posthemorrhagic anemia; D68.2 Hereditary deficiency of other clotting factors; I12.9 Hypertensive chronic kidney disease with stage 1 through stage 4 chronic kidney disease, or unspecified chronic kidney disease; N18.3 Chronic kidney disease, stage 3 (moderate); Z79.01 Long term (current) use of anticoagulants; E03.9 Hypothyroidism, unspecified; G47.33 Obstructive sleep apnea (adult) (pediatric); Z95.1 Presence of aortocoronary bypass graft; E87.8 Other disorders of electrolyte and fluid balance, not elsewhere classified; D3A.8 Other benign neuroendocrine tumors; J44.9 Chronic obstructive pulmonary disease, unspecified; K21.9 Gastro-esophageal reflux disease without esophagitis; N40.0 Benign prostatic hyperplasia without lower urinary tract symptoms; R07.9 Chest pain, unspecified

== ENCOUNTER 2019-10-12 11:57 | Inpatient (IN) | payer MEDICARE, OTHER ==
[~2019-10-12] VITALS: Ht 177.8 cm; Wt 87.7 kg
[~2019-10-12 11:57] MED LIST changes: +ATIVAN0.5 MG; +MAGNESIUM; +SIMBACORT
[2019-10-12 12:58] LABS: BASOPHILS 0.7 % (0-2); EOSINOPHILS 1.6 % (0-7); HEMATOCRIT 40.3 % (42.0-54.0); HEMOGLOBIN 12.8 g/dL (13.5-17.5); IMMATURE GRANULOCYTES 0.2 % (0-5); LYMPHOCYTES 32.4 % (15-50); MCH 30.4 pg (26.0-34.0); MCHC 31.8 g/dL (31.0-37.0); MCV 95.7 fL (80.0-100.0); MEAN PLATELET VOLUME 10.6 fL (7.4-10.4); MONOCYTES 9.1 % (2-11); PLATELET COUNT 182 10x3/uL (130-400); RBC 4.21 10x6/uL (4.20-6.10)
[2019-10-12 13:16] LABS: WBC 4.4 10x3/uL (4.8-10.8)
[2019-10-12 13:26] LABS: CALCIUM 9.6 mg/dL (8.5-10.1); CARBON DIOXIDE 26.3 mmol/L (21.0-32.0); CREATININE - SERUM 1.7 mg/dL (0.6-1.3); POTASSIUM - SERUM 4.3 mmol/L (3.5-5.1)
[2019-10-12 13:32] LABS: ALBUMIN 3.3 g/dL (3.4-5.0); BILIRUBIN - TOTAL 0.49 mg/dL (0.2-1.3); C-REACTIVE PROTEIN 4.5 mg/dL (0.0-0.9); PROTEIN - SERUM 7.5 g/dL (6.4-8.2)
--- NOTE | 2019-10-12 15:15 | NUR ---
DELAY IN TRANSFER D/T DR. CROW AT BEDSIDE.
[2019-10-12] MEDS ORDERED: COUMADIN2.5 MG PO (16:16)
[2019-10-12] MEDS ORDERED: COUMADIN5 MG PO (16:17)
[2019-10-12] MEDS ORDERED: TUMS X-STR300 MG PO (16:24)
[2019-10-12] MEDS ORDERED: HYDROCHLOROTHIA25 MG PO (16:25)
[2019-10-12] MEDS ORDERED: COLCRYS0.6 MG PO (16:26)
[2019-10-12 16:43] VITALS: Ht 177.8 cm; Wt 87.7 kg
[2019-10-12 20:00] VITALS: BP 134/79
[2019-10-13] VITALS: BP 124/76
--- NOTE | 2019-10-13 00:01 | NUR ---
AWKAE ALERT,NO COMPLAITNS VOICED. RESP EVEN AND UNLABORED. NO DISTRESS NOTED.RLE WITH REDNESS AND EDEMA TO LOWER LEG.NO COMPLAITNS OF NUMBNESS.PPP. IV TO RFA WITHOUT REDNESS OR EDEMA NOTED. CL IN REACH. AT BEDSIDE.
--- NOTE | 2019-10-13 02:33 | NUR ---
I have reviewed this patient and I concur with the Shift Assessment completed by the Licensed Practical Nurse today this shift.
[2019-10-13 04:00] VITALS: BP 199/97
[2019-10-13 07:43] VITALS: BP 163/94
--- NOTE | 2019-10-13 08:18 | NUR ---
PT ALERT X 4. BREATH SOUNDS CLEAR BILAT. ABDOMEN DISTENDED. IV TO RIGHT FOREARM, PATENT, DRESSING CDI. RIGHT LEG REDDENED AND SWOLLEN WITH SCABS. BED LOW, CALL LIGHT IN REACH. NO OTHER NEEDS AT THIS TIME.
[2019-10-13] MEDS ORDERED: CATAPRES0.1 MG PO (08:47)
[2019-10-13 12:48] VITALS: BP 135/73
--- NOTE | 2019-10-13 13:52 | HP ---
PATIENT: RAGHAVENDRA COLE MEDICAL RECORD: [id number] ACCOUNT: [id number] LOCATION:[id number] : 44 ADMISSION DATE: 10/12/19 PCP: SHO FLORES MD HISTORY AND PHYSICAL EXAMINATION DATE OF ADMISSION: 10/12/2019 CHIEF COMPLAINT: Pain, swelling and redness to the right knee area. HISTORY OF PRESENT ILLNESS: This is a 79-year-old white male who underwent coronary artery bypass graft on 08/22/2019, one of the donor sites was his right leg. He saw Dr. Flores or his nurse a couple of times last week for increased redness, pain, and swelling. He was scheduled to come back and see them on Monday10/14/2019 and have some fluid drained from this area. Pain and swelling got worse, so he presented to the ER now and he is admitted for cellulitis around the healing incision from coronary artery bypass graft. PAST MEDICAL AND SURGICAL HISTORY: He has had pulmonary carcinoid, hypertension, chronic kidney disease, obstructive sleep apnea, hypothyroidism, hypercoagulable state, COPD, gout, spina bifida, peripheral neuropathy, osteoarthritis, coronary artery disease. PAST SURGICAL HISTORY: Coronary artery bypass graft surgery on 08/22/[address] Flores. He had right middle lobe and right lower lobectomies by Dr. Stephenson, years ago for his carcinoid. He has had a carotid endarterectomy. He has had TURP. He has had bilateral inguinal hernia repairs. ALLERGIES: NONE, BUT WITH HIS KIDNEY DISEASE, HE SHOULD HAVE IV DYES. HOME MEDICATIONS: Cetirizine 10 mg once a day; DuoNeb via nebulizer every 4-6 hours as needed; Hemocyte Plus once a day; takes Coumadin 5 mg on Monday, Monday, Monday and 2.5 mg on Monday, , Monday, Monday; metoprolol tartrate 25 mg one half b.i.d.; pravastatin 20 mg at bedtime; clonidine 0.1 mg p.o. 6 hours p.r.n. systolic pressure greater than 180; aspirin 81 mg a day; gabapentin 100 mg b.i.d.; lorazepam 0.5 t.i.d. p.r.n. anxiety; HCTZ 25 mg daily p.r.n. swelling; Singulair 10 mg at bedtime; Tums 500 mg a.c.; Colace 100 mg t.i.d.; Protonix 40 mg once a day; MiraLax 1 packet daily; levothyroxine 100 mcg daily; vitamin D 4000 units daily; folic acid 1 mg daily; allopurinol 100 mg twice a day; colchicine 0.6 mg p.r.n. gout; CoQ10 daily; magnesium 400 mg daily. SOCIAL HISTORY: He is retired, . FAMILY HISTORY: Father at 44, he had COPD. HABITS: No tobacco, alcohol or drugs. REVIEW OF SYSTEMS: GENERAL: No major weight changes. HEENT: No particular sinus or allergy problems. RESPIRATORY: He has COPD. CARDIAC: He has coronary disease with recent CABG, less than 2 months ago. GASTROINTESTINAL: He has had reflux, heartburn. GENITOURINARY: He has had BPH and had a TURP for that. MUSCULOSKELETAL: He has some arthritic aches and pains. NEUROLOGIC: No seizures, no migraine headaches. HISTORY AND PHYSICAL [id number] RAGHAVENDRA COLE PSYCHIATRIC: He has some anxiety. PHYSICAL EXAMINATION: VITAL SIGNS: Temperature 97.9, pulse 90, respirations 18, blood pressure 147/92, O2 sat is 96%. GENERAL: He is awake and alert. He does not appear in distress. Two daughters were present during the exam. HEENT: Unremarkable. NECK: Supple. No JVD or bruit. HEART: Regular rate and rhythm. LUNGS: Clear. ABDOMEN: Soft. EXTREMITIES: Around the right knee medially he has a healed wound from donor site from CABG. There is increased erythema in the area with some swelling suggesting fluid there. Otherwise, no swelling or pain in the extremities. LABORATORY DATA: CBC with a white count of 4400, hemoglobin 12.8, hematocrit 40.3. Basic metabolic panel is all okay except creatinine is 1.7, which is about his baseline. Liver functions were okay. C-reactive protein a little elevated at 4.5. IMAGING: X-ray of the right tib-fib area shows nothing acute. Chest x-ray is stable. No acute problems. There were trace pleural effusions. ASSESSMENT: 1. Cellulitis of the right leg around the healed incisions from CABG. 2. Hypercoagulable state, on chronic Coumadin therapy. 3. Hypertension. 4. Coronary artery disease status post CABG. PLAN: We will admit and start him on antibiotics. Dr. Flores, who has been seeing him is consulted. Other tests or procedures as warranted. TRANSINT:[id number] Voice Confirmation ID: [id number] DOCUMENT ID: [id number] SOCRATES CROW MD at 1352 CC: [id number] DICTATION DATE: 10/13/19 1112 COMMERCIAL FINANCE ANALYST: 10/13/19 1228 ADM IN [place] [id number] [place] [id number]
[2019-10-13 16:47] VITALS: BP 167/73
[2019-10-13 20:11] VITALS: BP 153/67
--- NOTE | 2019-10-13 20:15 | NUR ---
AWAKE,ALERT.NO COMPLAITNS OVICED. RESP EVEN AND UNALBORED. NO DISTRESS NOTED. O2 @ 2L PER NC ON. IV TO RFA INTACT WITHOUT REDNESS OR EDEMA. EDEMA AND REDNESS NOTED TO RLE WITH SCABS @ OLD SURIGAL INCISIONS. CL IN REACH. BED IN LOW POSITION.
[2019-10-14 00:15] VITALS: BP 163/78
--- NOTE | 2019-10-14 02:42 | NUR ---
I have reviewed this patient and I concur with the Shift Assessment completed by the Licensed Practical Nurse today this shift.
[2019-10-14 04:31] VITALS: BP 170/85
[2019-10-14 05:59] LABS: BASOPHILS 0 % (0-2); EOSINOPHILS 2.2 % (0-7); HEMATOCRIT 32.7 % (42.0-54.0); HEMOGLOBIN 10.4 g/dL (13.5-17.5); LYMPHOCYTES 26.7 % (15-50); MCH 29.9 pg (26.0-34.0); MCHC 31.8 g/dL (31.0-37.0); MEAN PLATELET VOLUME 10.5 fL (7.4-10.4); MONOCYTES 8.7 % (2-11); NEUTROPHILS 62.4 % (40-80); PLATELET COUNT 162 10x3/uL (130-400); RBC 3.48 10x6/uL (4.20-6.10); RDW 14.9 % (11.5-14.5); WBC 3.7 10x3/uL (4.8-10.8)
[2019-10-14 06:20] LABS: ANION GAP 9.3 mmol/L (8-16); CALCIUM 8.6 mg/dL (8.5-10.1); CARBON DIOXIDE 27.5 mmol/L (21.0-32.0); CREATININE - SERUM 1.3 mg/dL (0.6-1.3); POTASSIUM - SERUM 3.8 mmol/L (3.5-5.1)
[2019-10-14 06:21] LABS: INR 2.31 (0.85-1.17); PROTIME 24.6 SECONDS (11.6-15.0)
[2019-10-14 07:28] VITALS: BP 179/91
[2019-10-14 11:48] VITALS: BP 158/83
--- NOTE | 2019-10-14 12:46 | NUR ---
PT TAKEN TO SURGERY, CONTINUE WITH PLAN OF CARE, FAMILY AT BEDSIDE
[2019-10-14 14:28] VITALS: BP 165/80
--- NOTE | 2019-10-14 15:52 | NUR ---
PT SITTING UP IN BED EATING LATE LUNCH TRAY, BED IN LOWEST POSITION, CL IN REACH FAMILY AT BEDSIDE CONTINUE WITH PLAN OF CARE
--- NOTE | 2019-10-14 18:55 | NUR ---
I have reviewed this patient and I concur with the Shift Assessment completed by the Licensed Practical Nurse today this shift.
--- NOTE | 2019-10-14 19:25 | NUR ---
PT LYING IN BED SLEEPING WITHOUT DISTRESS. LEGS PROPPED ON PILLOWS, RIGHT LEG WRAPPED IN ABIMAEL WRAP, DRESSING CDI. IV RIGHT FA INFUSING NS @ 100. FAMILY AT BEDSIDE DENIES NEEDS. CL IN REACH, WILL CTM
[2019-10-14 20:54] VITALS: BP 130/67
[2019-10-15 01:10] VITALS: BP 161/90
[2019-10-15 05:11] VITALS: BP 179/87
--- NOTE | 2019-10-15 07:15 | NUR ---
AWAKENS INT. PT IS WITHOUT DISTRESS.CALL LIGHT IN REACH
[2019-10-15 09:05] VITALS: BP 132/78
--- NOTE | 2019-10-15 09:29 | MORECARE ---
CASE MANAGEMENT DISCHARGE SUMMARY PATIENT: RAGHAVENDRA COLE GARY UNIT: [id number] ADM DATE: 10/12/19 AGE: 79 : 42 SEX: M ROOM/BED: D.2218 AUTHOR: ALEXANDRO GARCIA PHYSICIAN: REFERRING PHYSICIAN: SOCRATES CROW MD DATE OF SERVICE: 10/15/19 Discharge Plan Patient Name: RAGHAVENDRA COLE [facility] [facility] 1940 Planned Disposition: Home Health Service Anticipated Discharge Date: Discharge Date: Expected LOS: Initial Reviewer: [email or web address] Initial Review Date: 10/12/2019 Generated: 10/15/19 10:28 am DCPIA - Discharge Planning Initial Assessment Updated by [email or web address]: Arlene Duran on 10/15/19 9:27 am * Is the patient Alert and Oriented? Yes * How many steps to enter\exit or inside your home? * PCP TRISTIN * [facility]acy [facility] * Preadmission Environment Home with Family * ADLs Independent * Equipment Cane Oxygen Rolling Walker * List name and contact numbers for known caregivers / representatives who currently or will assist patient after discharge: SEBASTIAN (DAUGHTER) [phone] * Verbal permission to speak to the caregivers and representatives has been obtained from the patient. N/A * Community resources currently utilized Home Health * Please name any agencies selected above. [facility] * Additional services required to return to the preadmission environment? Yes * Can the patient safely return to the preadmission environment? Yes * Has this patient been hospitalized within the prior 30 days at any hospital? No Patient Name: RAGHAVENDRA COLE Page 28879 at 0929 All edits/amendments must be made on the electronic document DICTATION DATE: 10/15/19927 CLINICAL REHABILITATION COORDINATOR: SANGEETHA 10/15/19927 RPT#: [id number] DC DATE: STATUS: ADM IN [facility] [address] [place] [address] END OF REPORT
--- NOTE | 2019-10-15 09:36 | MORECARE ---
CASE MANAGEMENT DISCHARGE SUMMARY PATIENT: RAGHAVENDRA COLE GARY UNIT: [id number] ADM DATE: 10/12/19 AGE: 79 : 42 SEX: M ROOM/BED: D.8857 AUTHOR: ALEXANDRO GARCIA PHYSICIAN: REFERRING PHYSICIAN: SOCRATES CROW MD DATE OF SERVICE: 10/15/19 Discharge Plan Patient Name: RAGHAVENDRA COLE Facility: [facility]:[place] : 1940 Planned Disposition: Home Health Service Anticipated Discharge Date: Discharge Date: Expected LOS: Initial Reviewer: [email or web address] Initial Review Date: 10/12/2019 Generated: 10/15/19 10:36 am Comments DCP- Discharge Planning Updated by [email or web address]: Arlene Duran on 10/15/19 8:[address] Patient Name: RAGHAVENDRA COLE Admission Status: ER Accout number: [id number] Admission Date: 10-12-2019 : 1940 Admission Diagnosis: Attending: SOCRATES CROW Current LOS: 3 Anticipated DC Date: Planned Disposition: Home Health Service Primary Insurance: MEDICARE A & B Discharge Planning Comments: CM met with patient to complete initial dc planning assessment. CM educated patient on the CM role and verbal consent given by patient to complete assessment. Patient lives at home with his spouse where he states he is independent with his care. At discharge patient plans to return home and feels this is a safe discharge. CM discussed availability of home health, rehab services, and medical equipment. He said he is current with [facility] and is happy with them. He has a cane and a walker that he does not use. He has home O2 that he wears at night from [employer]. I will have him sign the ISSA for them and place on chart. 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 Patient denied known discharge needs at this time. CM will continue to follow and will assist as needed with dc plans/needs Comic Artist: Arlene Duran DCPIA - Discharge Planning Initial Assessment Updated by [email or web address]: Arlene Duran on 10/15/19 9:27 am * Is the patient Alert and Oriented? Yes * How many steps to enter\exit or inside your home? * PCP TRISTIN * [facility]acy [facility] * Preadmission Environment Home with Family * ADLs Independent * Equipment Cane Oxygen Rolling Walker * List name and contact numbers for known caregivers / representatives who currently or will assist patient after discharge: SEBASTIAN (DAUGHTER) [phone] * Verbal permission to speak to the caregivers and representatives has been obtained from the patient. N/A * Community resources currently utilized Home Health * Please name any agencies selected above. [facility] * Additional services required to return to the preadmission environment? Yes * Can the patient safely return to the preadmission environment? Yes * Has this patient been hospitalized within the prior 30 days at any hospital? No Last DP export: 10/15/19 8:29 Patient Name: RAGHAVENDRA COLE Page [phone] at 0936 All edits/amendments must be made on the electronic document DICTATION DATE: 10/15/19935 CITY DISTRIBUTION CLERK: SANGEETHA 10/15/19935 RPT#: [id number] DC DATE: STATUS: ADM IN [facility] [address] [place] [address] END OF REPORT
--- NOTE | 2019-10-15 12:15 | OP ---
PATIENT NAME: RAGHAVENDRA COLE MEDICAL RECORD: [id number] :44 LOCATION:D.MS Wan2218 ADMISSION DATE:10/12/19 SURGEON: HARDY FLORES MD DATE OF OPERATION: 10/14/2019 SURGEON: Hardy Flores MD AREA CLEANER: None. PROCEDURE PERFORMED: Incision and debridement of seroma right leg. PREOPERATIVE DIAGNOSIS: Seroma after vein harvest for coronary artery bypass graft. POSTOPERATIVE DIAGNOSIS: Seroma after vein harvest for coronary artery bypass graft. ANESTHESIA: Intravenous sedation and 10 cc of 1% Xylocaine. COMPLICATIONS: None. SPECIMENS: Cultures. DISPOSITION: Recovery room. CONDITION: Good. FINDINGS: A 10-15 cc of clear serous seroma packed with iodoform and closed loosely. OPERATIVE INDICATION: Seroma with some tenderness and erythema. DESCRIPTION OF PROCEDURE: The patient was brought to the operating suite. Intravenous sedation was given. The right leg was prepped. A 1% Xylocaine was used. The old incision was incised after using the ultrasound along the entire leg where there were no fluid collections along the previous wound tract, but about an 8-cm long seroma just under the lowest incision. Fluid was removed. The cavity was debrided carefully as the patient was on full Coumadin anticoagulation. Thorough vancomycin irrigation was undertaken. The wound was packed with iodoform and 2 loose vertical mattress sutures of nylon were placed. Gauze was placed, Kerlix and Fady. The patient in good condition to recovery room. TRANSINT:[id number] Voice Confirmation ID: [id number] DOCUMENT ID: [id number] HARDY FLORES MD at 1215 CC: SOCRATES CROW MD [id number] DICTATION DATE: 10/14/19 1329 MACHINE STACKER: 10/14/19 2343 ADM IN [facility] [id number] [place] [address]
[2019-10-15 12:50] VITALS: BP 127/67
[2019-10-15 16:38] VITALS: BP 142/64
--- NOTE | 2019-10-15 18:42 | NUR ---
FAMILY AT BEDSIDE.PT IS WITHOUT DISTRESS.REMAINS WITHOUT CHANGE.CONT PLAN OF CARE
[2019-10-15 19:30] VITALS: BP 153/66
--- NOTE | 2019-10-15 19:30 | NUR ---
PT SITTING UP IN BED WITHOUT DISTRESS, FAMILY AT BEDSIDE. IV RIGHT FA INFUSING @ 100. DRESSING TO RIGHT LEG CDI. XUAN ON. DENIES NEEDS AT THIS TIME. CL IN REACH, WILL CTM
[2019-10-16 00:59] VITALS: BP 145/68
[2019-10-16 05:34] VITALS: BP 137/70
--- NOTE | 2019-10-16 07:10 | NUR ---
PT RESTING IN BED. NO SIGNS OF DISTRESS. IV TO RIGHT FORARM PATENT NO REDNESS OR TENDERNESS. HEALED INCISION TO CHEST AND RIGHT EXT. INCISION TO RIGHT LEGE. DRESSING CLEAN AND INTACT. ON TELEMETRY [address] FALL PRECAUTIONS IN PLACE. CALL LIGHT IN REACH. BED LOW POSITION. FAMILY AT BEDSIDE.
[2019-10-16 08:49] VITALS: BP 184/93
--- NOTE | 2019-10-16 09:50 | MORECARE ---
CASE MANAGEMENT DISCHARGE SUMMARY PATIENT: RAGHAVENDRA COLE GARY UNIT: [id number] ADM DATE: 10/12/19 AGE: 79 : 42 SEX: M ROOM/BED: D.2218 AUTHOR: ALEXANDRO GARCIA PHYSICIAN: REFERRING PHYSICIAN: SOCRATES CROW MD DATE OF SERVICE: 10/16/19 Discharge Plan Patient Name: RAGHAVENDRA COLE Facility: [facility]:[place] : 1940 Planned Disposition: Home Health Service Anticipated Discharge Date: Discharge Date: Expected LOS: Initial Reviewer: [email or web address] Initial Review Date: 10/12/2019 Generated: 10/16/19 10:50 am Comments DCP- Discharge Planning Updated by [email or web address]: Arlene Duran on 10/16/19 8:[address] IMM SERVED AND EXPLAINED, ISSA FOR [facility]UMP[facility]ION OF [facility] AND [facility] OBTAINED AND PLACED IN CHART. CM TO FOLLOW AND ASSIST NEEDED DCP- Discharge Planning Updated by [email or web address]: Arlene Duran on 10/15/19 8:[address] Patient Name: RAGHAVENDRA COLE Admission Status: ER Accout number: [id number] Admission Date: 10-12-2019 : 1940 Admission Diagnosis: Attending: SOCRATES CROW Current LOS: 3 Anticipated DC Date: Planned Disposition: Home Health Service Primary Insurance: MEDICARE A & B Discharge Planning Comments: CM met with patient to complete initial dc planning assessment. CM educated patient on the CM role and verbal consent given by patient to complete assessment. Patient lives at home with his spouse where he states he is independent with his care. At discharge patient plans to return home and feels this is a safe discharge. CM discussed availability of home health, rehab services, and medical equipment. He said he is current with [facility] and is happy with them. He has a cane and a walker that he does not use. He has home O2 that he wears at night from [employer]. I will have him sign the ISSA for them and place on chart. 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 Patient denied known discharge needs at this time. CM will continue to follow and will assist as needed with dc plans/needs Carbon Paste Mixer Operator: Arlene Duran DCPIA - Discharge Planning Initial Assessment Updated by [email or web address]: Arlene Duran on 10/15/19 9:27 am * Is the patient Alert and Oriented? Yes * How many steps to enter\exit or inside your home? * PCP TRISTIN * [facility]acy [facility] * Preadmission Environment Home with Family * ADLs Independent * Equipment Cane Oxygen Rolling Walker * List name and contact numbers for known caregivers / representatives who currently or will assist patient after discharge: SEBASTIAN (DAUGHTER) [phone] * Verbal permission to speak to the caregivers and representatives has been obtained from the patient. N/A * Community resources currently utilized Home Health * Please name any agencies selected above. [facility] * Additional services required to return to the preadmission environment? Yes * Can the patient safely return to the preadmission environment? Yes * Has this patient been hospitalized within the prior 30 days at any hospital? No Coverage Notice Reviewer: [email or web address] Tamera Duran Notice Issued Date-Time: 10/16/2019 8:30 Notice Type: IM Discharge Notice Notice Delivered To: Patient Relationship to Patient: Clothing Trades Workers Name: Delivery Method: HAND - Hand Delivered Estefania Days: Prior Verbal Notification: Recipient Understood Notice: Yes Recipient Signature: Yes Med Rec Note Co-signed by Attending: Coverage Notice Comment: Reviewer: [id number] Tamera Duran Notice Issued Date-Time: 10/16/2019 8:30 Notice Type: Patient Choice Letter Notice Delivered To: Patient Relationship to Patient: Clothing Trades Workers Name: Delivery Method: HAND - Hand Delivered Estefania Days: Prior Verbal Notification: Recipient Understood Notice: Yes Recipient Signature: Yes Med Rec Note Co-signed by Attending: Coverage Notice Comment: ISSA FOR CA[facility] DESHPANDE AND DEMOND WILHELM Last DP export: 10/15/19 8:36 Patient Name: RAGHAVENDRA COLE Page [phone] at 0950 All edits/amendments must be made on the electronic document DICTATION DATE: 10/16/19949 DIRECTOR PRIVATE MUSIC THERAPY AGENCY: SANGEETHA 10/16/19949 RPT#: [id number] DC DATE: STATUS: ADM IN [facility] [address] [place] [address] END OF REPORT
[2019-10-16 12:46] VITALS: BP 146/78
[2019-10-16] MEDS ORDERED: AUGMENTIN 875-11 TAB PO (13:56)
--- NOTE | 2019-10-16 14:47 | NUR ---
I have reviewed this patient and I concur with the Shift Assessment completed by the Licensed Practical Nurse today this shift.
--- NOTE | 2019-10-16 15:13 | MORECARE ---
CASE MANAGEMENT DISCHARGE SUMMARY PATIENT: RAGHAVENDRA COLE GARY UNIT: [id number] ADM DATE: 10/12/19 AGE: 79 : 42 SEX: M ROOM/BED: D.2218 AUTHOR: ALEXANDRO GARCIA PHYSICIAN: REFERRING PHYSICIAN: SOCRATES CROW MD DATE OF SERVICE: 10/16/19 Discharge Plan Patient Name: RAGHAVENDRA COLE Facility: [facility]:[place] : 1940 Planned Disposition: Home Health Service Anticipated Discharge Date: Discharge Date: Expected LOS: Initial Reviewer: [email or web address] Initial Review Date: 10/12/2019 Generated: 10/16/19 4:13 pm Comments DCP- Discharge Planning Updated by [email or web address]: Arlene Duran on 10/16/19 2:[address] PATIENT DISCHARGING HOME TODAY WITH REUMPTION OF [facility], DAUGHTERS HERE TO DRIVE HOME CM TO FOLLOW NEEDED DCP- Discharge Planning Updated by [email or web address]: Arlene Duran on 10/16/19 8:[address] IMM SERVED AND EXPLAINED, ISSA FOR [facility]UMPTION OF [facility] AND [facility] OBTAINED AND PLACED IN CHART. CM TO FOLLOW AND ASSIST NEEDED DCP- Discharge Planning Updated by [id number]: Arlene Duran on 10/15/19 8:[address] Patient Name: RAGHAVENDRA COLE Admission Status: ER Accout number: [id number] Admission Date: 10-12-2019 : 1940 Admission Diagnosis: Attending: SOCRATES CROW Current LOS: 3 Anticipated DC Date: Planned Disposition: Home Health Service Primary Insurance: MEDICARE A & B Discharge Planning Comments: CM met with patient to complete initial dc planning assessment. CM educated patient on the CM role and verbal consent given by patient to complete assessment. Patient lives at home with his spouse where he states he is independent with his care. At discharge patient plans to return home and feels this is a safe discharge. CM discussed availability of home health, rehab services, and medical equipment. He said he is current with [facility] and is happy with them. He has a cane and a walker that he does not use. He has home O2 that he wears at night from [employer]. I will have him sign the ISSA for them and place on chart. 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 Patient denied known discharge needs at this time. CM will continue to follow and will assist as needed with dc plans/needs Trouble Locator Test Desk: Arlene Duran DCPIA - Discharge Planning Initial Assessment Updated by [email or web address]: Arlene Duran on 10/15/19 9:27 am * Is the patient Alert and Oriented? Yes * How many steps to enter\exit or inside your home? * PCP TRISTIN * Pharmacy [facility] * Preadmission Environment Home with Family * ADLs Independent * Equipment Cane Oxygen Rolling Walker * List name and contact numbers for known caregivers / representatives who currently or will assist patient after discharge: SEBASTIAN (DAUGHTER) [phone] * Verbal permission to speak to the caregivers and representatives has been obtained from the patient. N/A * Community resources currently utilized Home Health * Please name any agencies selected above. [facility] * Additional services required to return to the preadmission environment? Yes * Can the patient safely return to the preadmission environment? Yes * Has this patient been hospitalized within the prior 30 days at any hospital? No External Providers External Provider: [facility] Next Contact Date: Service Request Date: Service Type: Resolution: Reviewer: Comments: Coverage Notice Reviewer: [email or web address] Tamera Duran Notice Issued Date-Time: 10/16/2019 8:30 Notice Type: IM Discharge Notice Notice Delivered To: Patient Relationship to Patient: Chicken Tender Name: Delivery Method: HAND - Hand Delivered Estefania Days: Prior Verbal Notification: Recipient Understood Notice: Yes Recipient Signature: Yes Med Rec Note Co-signed by Attending: Coverage Notice Comment: Reviewer: [id number] Tamera Duran Notice Issued Date-Time: 10/16/2019 8:30 Notice Type: Patient Choice Letter Notice Delivered To: Patient Relationship to Patient: Chicken Tender Name: Delivery Method: HAND - Hand Delivered Estefania Days: Prior Verbal Notification: Recipient Understood Notice: Yes Recipient Signature: Yes Med Rec Note Co-signed by Attending: Coverage Notice Comment: ISSA FOR CA[facility] DESHPANDE AND DEMONDFLORENCIA WILHELM Last DP export: 10/16/19 8:50 Patient Name: RAGHAVENDRA COLE Page [phone] at 1513 All edits/amendments must be made on the electronic document DICTATION DATE: 10/16/191512 RECEPTION CENTRE MANAGER: SANGEETHA 10/16/191512 RPT#: [id number] [place] DATE: STATUS: ADM IN [facility] [address] [place] [address] END OF REPORT
--- NOTE | 2019-10-16 16:08 | NUR ---
DISCHARGE INSTRUCTIONS GIVEN. SEEMS TO UNDERSTAND INSTRUCTIONS. IV OUT TIP INTACT. TELEMETRY OFF AND RETURNED. NO SIGNS OF DISTRESS. LEFT WITH HOSPITAL STAFF TO GO HOME TO PERSONAL RIDE.
--- NOTE | 2019-10-22 11:28 | MORECARE ---
CASE MANAGEMENT DISCHARGE SUMMARY PATIENT: RAGHAVENDRA COLE GARY UNIT: [id number] ADM DATE: 10/12/19 AGE: 79 : 42 SEX: M ROOM/BED: D.2218 AUTHOR: ALEXANDRO GARCIA PHYSICIAN: REFERRING PHYSICIAN: SOCRATES CROW MD DATE OF SERVICE: 10/22/19 Discharge Plan Patient Name: RAGHAVENDRA COLE Facility: [facility]:[place] : 1940 Planned Disposition: Home Health Service Anticipated Discharge Date: Discharge Date: 10/16/2019 Expected LOS: Initial Reviewer: [email or web address] Initial Review Date: 10/12/2019 Generated: 10/22/19 12:28 pm Comments DCP- Discharge Planning Updated by [email or web address]: Arlene Duran on 10/16/19 2:[address] PATIENT DISCHARGING HOME TODAY WITH REUMPTION OF [facility], DAUGHTERS HERE TO DRIVE HOME CM TO FOLLOW NEEDED DCP- Discharge Planning Updated by [email or web address]: Arlene Duran on 10/16/19 8:[address] IMM SERVED AND EXPLAINED, ISSA FOR [facility]UMPTION OF [facility] AND [facility] OBTAINED AND PLACED IN CHART. CM TO FOLLOW AND ASSIST NEEDED DCP- Discharge Planning Updated by [email or web address]: Arlene Duran on 10/15/19 8:[address] Patient Name: RAGHAVENDRA COLE Admission Status: ER Accout number: [id number] Admission Date: 10-12-2019 : 1940 Admission Diagnosis: Attending: SOCRATES CROW Current LOS: 3 Anticipated DC Date: Planned Disposition: Home Health Service Primary Insurance: MEDICARE A & B Discharge Planning Comments: CM met with patient to complete initial dc planning assessment. CM educated patient on the CM role and verbal consent given by patient to complete assessment. Patient lives at home with his spouse where he states he is independent with his care. At discharge patient plans to return home and feels this is a safe discharge. CM discussed availability of home health, rehab services, and medical equipment. He said he is current with [facility] and is happy with them. He has a cane and a walker that he does not use. He has home O2 that he wears at night from [employer]. I will have him sign the ISSA for them and place on chart. 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 Patient denied known discharge needs at this time. CM will continue to follow and will assist as needed with dc plans/needs Manager Supply Chain: Arlene Duran DCPIA - Discharge Planning Initial Assessment Updated by [email or web address]: Arlene Duran on 10/15/19 9:27 am * Is the patient Alert and Oriented? Yes * How many steps to enter\exit or inside your home? * PCP TRISTIN * Pharmacy [facility] * Preadmission Environment Home with Family * ADLs Independent * Equipment Cane Oxygen Rolling Walker * List name and contact numbers for known caregivers / representatives who currently or will assist patient after discharge: SEBASTIAN (DAUGHTER) [phone] * Verbal permission to speak to the caregivers and representatives has been obtained from the patient. N/A * Community resources currently utilized Home Health * Please name any agencies selected above. [facility] * Additional services required to return to the preadmission environment? Yes * Can the patient safely return to the preadmission environment? Yes * Has this patient been hospitalized within the prior 30 days at any hospital? No Coverage Notice Reviewer: [email or web address] Tamera Duran Notice Issued Date-Time: 10/16/2019 8:30 Notice Type: IM Discharge Notice Notice Delivered To: Patient Relationship to Patient: Strainer Mill Operator Name: Delivery Method: HAND - Hand Delivered Estefania Days: Prior Verbal Notification: Recipient Understood Notice: Yes Recipient Signature: Yes Med Rec Note Co-signed by Attending: Coverage Notice Comment: Reviewer: [email or web address] Tamera Duran Notice Issued Date-Time: 10/16/2019 8:30 Notice Type: Patient Choice Letter Notice Delivered To: Patient Relationship to Patient: Strainer Mill Operator Name: Delivery Method: HAND - Hand Delivered Estefania Days: Prior Verbal Notification: Recipient Understood Notice: Yes Recipient Signature: Yes Med Rec Note Co-signed by Attending: Coverage Notice Comment: ISSA FOR CAITY DESHPANDE AND DEMOND WILHELM Last DP export: 10/16/19 2:13 Patient Name: RAGHAVENDRA COLE Page [phone] at 1128 All edits/amendments must be made on the electronic document DICTATION DATE: 10/22/19 1128 MOLDING LINE OPERATOR: SANGEETHA 10/22/19 1128 RPT#: [id number] DC DATE:10/16/19 STATUS: DIS IN [facility] [address] [place] [address] END OF REPORT
== END 2019-10-16 16:10 | disposition home health service (06) | DRG 908 ==
LOC: D.ER 11:57 → D.MS 14:44
PROVIDERS: Family Medicine; Thoracic Surgery (Cardiothoracic Vascular Surgery); ADMIT Family Medicine; ATTEND Family Medicine
PROC: 0JDL0ZZ Extraction of Right Upper Leg Subcutaneous Tissue and Fascia, Open Approach (ICD-10-PCS; principal; 2019-10-14 10:30)
DX: I97.641 Postprocedural seroma of a circulatory system organ or structure following cardiac bypass (principal); D68.59 Other primary thrombophilia; L03.115 Cellulitis of right lower limb; I12.9 Hypertensive chronic kidney disease with stage 1 through stage 4 chronic kidney disease, or unspecified chronic kidney disease; N18.9 Chronic kidney disease, unspecified; G47.33 Obstructive sleep apnea (adult) (pediatric); E03.9 Hypothyroidism, unspecified; J44.9 Chronic obstructive pulmonary disease, unspecified; M10.9 Gout, unspecified; Q05.9 Spina bifida, unspecified; G62.9 Polyneuropathy, unspecified; I25.10 Atherosclerotic heart disease of native coronary artery without angina pectoris

== ENCOUNTER 2019-10-14 08:00 | Outpatient (CLI) | payer MEDICARE, OTHER ==
[2019-10-11 10:33] LABS: ANION GAP 12.1 mmol/L (8-16); CALCIUM 9.6 mg/dL (8.5-10.1); CARBON DIOXIDE 30.6 mmol/L (21.0-32.0); CREATININE - SERUM 1.8 mg/dL (0.6-1.3); POTASSIUM - SERUM 4.7 mmol/L (3.5-5.1)
[2019-10-11 10:45] LABS: APTT 37.8 SECONDS (22.8-39.4); INR 2.39 (0.85-1.17); PROTIME 25.3 SECONDS (11.6-15.0)
[2019-10-11 10:53] LABS: APPEARANCE CLEAR (CLEAR); BACTERIA FEW /hpf (NEGATIVE); BILIRUBIN NEGATIVE (NEGATIVE); COLOR YELLOW (YELLOW); EPITHELIAL CELLS 0-5 /hpf (0-5); GLUCOSE NEGATIVE (NEGATIVE); KETONE NEGATIVE (NEGATIVE); MUCUS <1+ /lpf (NONE SEEN); NITRITE NEGATIVE (NEGATIVE); PROTEIN 1+ mg/dL (NEGATIVE); RED CELLS - URINE RARE /hpf (0-5); SPECIFIC GRAVITY 1.015 (1.005-1.020); UROBILINOGEN NORMAL (NORMAL); WHITE CELLS - URINE 0-5 /hpf (NEGATIVE)
[2019-10-11 11:33] LABS: HEMATOCRIT 39.4 % (42.0-54.0); HEMOGLOBIN 12.4 g/dL (13.5-17.5); MCH 30.2 pg (26.0-34.0); MCHC 31.5 g/dL (31.0-37.0); MCV 95.9 fL (80.0-100.0); RBC 4.11 10x6/uL (4.20-6.10)
[2019-10-12 16:43] VITALS: BMI 27.7
[~2019-10-14 08:00] MED LIST changes: +TUMS X-STR300 MG PO
== END 2019-10-14 08:01 | disposition home or self-care (01) ==
LOC: D.OPS 08:00 → D.PAN 10:30 → D.OPS 10:30 → EDSTATUS 10:30 → D.OPS 13:00
PROVIDERS: ATTEND Thoracic Surgery (Cardiothoracic Vascular Surgery)
DX: S80.11XA Contusion of right lower leg, initial encounter (principal)

== ENCOUNTER 2019-10-27 07:27 | Emergency (ER) | payer MEDICARE, OTHER ==
[~2019-10-27] VITALS: Ht 177.8 cm; Wt 89.1 kg
[~2019-10-27 07:27] MED LIST changes: +AUGMENTIN 875-11 TAB PO
[2019-10-27 07:29] VITALS: Ht 177.8 cm; Wt 89.1 kg
[2019-10-27 08:21] LABS: BASOPHILS 0.2 % (0-2); EOSINOPHILS 0.2 % (0-7); HEMATOCRIT 36.5 % (42.0-54.0); HEMOGLOBIN 11.6 g/dL (13.5-17.5); IMMATURE GRANULOCYTES 0.3 % (0-5); MCH 30.1 pg (26.0-34.0); MCHC 31.8 g/dL (31.0-37.0); MCV 94.6 fL (80.0-100.0); MEAN PLATELET VOLUME 10.3 fL (7.4-10.4); MONOCYTES 8.3 % (2-11); PLATELET COUNT 182 10x3/uL (130-400); RBC 3.86 10x6/uL (4.20-6.10); RDW 14.8 % (11.5-14.5); WBC 6.4 10x3/uL (4.8-10.8)
[2019-10-27 08:32] LABS: INR 1.36 (0.85-1.17); PROTIME 16.2 SECONDS (11.6-15.0)
[2019-10-27 08:33] LABS: ANION GAP 13.6 mmol/L (8-16); CALCIUM 9.4 mg/dL (8.5-10.1); CARBON DIOXIDE 26.7 mmol/L (21.0-32.0); CREATININE - SERUM 1.7 mg/dL (0.6-1.3); POTASSIUM - SERUM 4.3 mmol/L (3.5-5.1)
[2019-10-27 08:48] LABS: ALBUMIN 3.1 g/dL (3.4-5.0); BILIRUBIN - TOTAL 0.26 mg/dL (0.2-1.3); PROTEIN - SERUM 6.8 g/dL (6.4-8.2); THYROID STIMULATING HORMONE 8.28 uIU/mL (0.36-3.74)
[2019-10-27 09:23] LABS: APPEARANCE CLEAR (CLEAR); BILIRUBIN NEGATIVE (NEGATIVE); COLOR YELLOW (YELLOW); GLUCOSE 50 mg/dL (NEGATIVE); KETONE NEGATIVE (NEGATIVE); NITRITE NEGATIVE (NEGATIVE); PROTEIN NEGATIVE (NEGATIVE); UROBILINOGEN NORMAL (NORMAL)
[2019-10-27 11:41] VITALS: BP 119/74
[2019-10-27] MEDS ORDERED: SYNTHROID125 MCG PO (11:59)
== END 2019-10-27 11:41 | disposition home or self-care (01) ==
LOC: D.ER 07:27
PROVIDERS: Emergency Medicine
DX: R53.1 Weakness (principal); I12.9 Hypertensive chronic kidney disease with stage 1 through stage 4 chronic kidney disease, or unspecified chronic kidney disease; N18.9 Chronic kidney disease, unspecified; E03.9 Hypothyroidism, unspecified; D64.9 Anemia, unspecified; Z86.73 Personal history of transient ischemic attack (TIA), and cerebral infarction without residual deficits; I25.119 Atherosclerotic heart disease of native coronary artery with unspecified angina pectoris; E78.5 Hyperlipidemia, unspecified; J44.9 Chronic obstructive pulmonary disease, unspecified; Z99.81 Dependence on supplemental oxygen

== ENCOUNTER → 2019-11-13 13:04 | Outpatient (CLI) | payer MEDICARE, OTHER ==
[2019-11-06 11:15] VITALS: BMI 28.0
[~2019-11-13 13:04] MED LIST changes: +K-DUR20 MEQ PO; +PRO-AIR; -SIMBACORT; +SIMBACORT INH; +VITAMIN D5000 UNIT PO
== END | disposition home or self-care (01) ==
LOC: D.RAD 13:00
PROVIDERS: ATTEND Family Medicine
DX: R13.10 Dysphagia, unspecified (principal)

== ENCOUNTER → 2019-11-20 07:43 | Outpatient (CLI) | payer MEDICARE, OTHER ==
[2019-11-06 11:15] VITALS: BMI 28.0
== END | disposition home or self-care (01) ==
LOC: D.US 07:43
PROVIDERS: ATTEND Thoracic Surgery (Cardiothoracic Vascular Surgery)
DX: M96.842 Postprocedural seroma of a musculoskeletal structure following a musculoskeletal system procedure (principal)

== ENCOUNTER 2019-11-21 05:05 | Day surgery (SDC) | payer MEDICARE, OTHER ==
[~2019-11-21] VITALS: Ht 175.3 cm; Wt 88.9 kg
[2019-11-21 05:34] LABS: BASOPHILS 0.2 % (0-2); EOSINOPHILS 1.2 % (0-7); HEMATOCRIT 38.7 % (42.0-54.0); HEMOGLOBIN 12.3 g/dL (13.5-17.5); LYMPHOCYTES 24.8 % (15-50); MCH 30.1 pg (26.0-34.0); MCHC 31.8 g/dL (31.0-37.0); MCV 94.9 fL (80.0-100.0); MONOCYTES 8.7 % (2-11); NEUTROPHILS 65.1 % (40-80); PLATELET COUNT 168 10x3/uL (130-400); RBC 4.08 10x6/uL (4.20-6.10); RDW 14.6 % (11.5-14.5); WBC 5.2 10x3/uL (4.8-10.8)
[2019-11-21] MEDS ORDERED: SYMBICORT 16010.2 GM INH (06:19)
[2019-11-21 06:29] VITALS: BP 151/74; Ht 175.3 cm; Wt 88.9 kg
--- NOTE | 2019-11-27 11:57 | OP ---
PATIENT NAME: RAGHAVENDRA COLE MEDICAL RECORD: [id number] :44 LOCATION:D.OPS ADMISSION DATE: SURGEON: SHO FLORES MD DATE OF OPERATION: 11/21/2019 PROCEDURE PERFORMED: Drainage of seroma, right lower extremity. PREOPERATIVE DIAGNOSIS: Postoperative seroma. COMPLICATIONS: None. SPECIMENS: None. CONDITION: Stable. DISPOSITION: Outpatient surgery. ANESTHESIA: Sedation and 1% Xylocaine. FINDINGS: 10 cc of clear serous fluid. Cultures taken. INDICATION: Recurrent seroma. PROCEDURE NOTE: The right leg appeared to be more swollen than it was in the office yesterday. There was no drainage from the incision. Ultrasound was used prior to prep to orin a site at the inferior aspect of the seroma. The leg was prepped. 1% Xylocaine was used. A stab incision was made and the fluid was drained. The drain was placed through the stab hole and sutured into place and wrapped with gauze, Kerlix, and Fady and the patient was stable to the holding area. TRANSINT:[id number] Voice Confirmation ID: [id number] DOCUMENT ID: [id number] SHO FLORES MD at 1157 CC: SOCRATES CROW MD [id number] DICTATION DATE: 11/21/19 1031 REHAB THERAPIST: 11/21/19 1430 [facility] 11/21/19 [facility] [address] [place] [address]
== END 2019-11-21 10:12 | disposition home or self-care (01) ==
LOC: D.OPS 05:05
PROVIDERS: Anesthesiology; ATTEND Thoracic Surgery (Cardiothoracic Vascular Surgery)
DX: L76.34 Postprocedural seroma of skin and subcutaneous tissue following other procedure (principal); J45.909 Unspecified asthma, uncomplicated; I25.10 Atherosclerotic heart disease of native coronary artery without angina pectoris; I12.9 Hypertensive chronic kidney disease with stage 1 through stage 4 chronic kidney disease, or unspecified chronic kidney disease; N18.3 Chronic kidney disease, stage 3 (moderate); Z95.1 Presence of aortocoronary bypass graft

== ENCOUNTER → 2019-11-29 11:54 | Outpatient (CLI) | payer MEDICARE, OTHER ==
[2019-11-21 06:29] VITALS: BMI 29.0
== END | disposition home or self-care (01) ==
LOC: D.US 11-27 14:00 → D.MRI 11-27 14:30 → D.US 11:54
PROVIDERS: ATTEND Family Medicine
DX: R53.1 Weakness (principal)

== ENCOUNTER → 2020-02-21 16:05 | Outpatient (CLI) | payer MEDICARE, OTHER ==
[2019-12-09 18:13] VITALS: BMI 29.1
[~2020-02-21 16:05] MED LIST changes: +Levaquin PO; +POTASSIUM CHLOR8 ME1 PO
[2020-02-21 19:04] LABS: INR 1.91 (0.85-1.17); PROTIME 21.6 SECONDS (11.6-15.0)
== END | disposition home or self-care (01) ==
LOC: D.LABREF 16:05
PROVIDERS: ATTEND Family Medicine
DX: N17.9 Acute kidney failure, unspecified (principal)

== ENCOUNTER → 2020-03-25 16:59 | Outpatient (CLI) | payer MEDICARE, OTHER ==
[2019-12-09 18:13] VITALS: BMI 29.1
[2020-03-25 17:42] LABS: INR 1.84 (0.85-1.17)
== END | disposition home or self-care (01) ==
LOC: D.LABREF 16:59
PROVIDERS: ATTEND Family Medicine
DX: Z79.01 Long term (current) use of anticoagulants (principal)

== ENCOUNTER → 2020-04-27 14:22 | Outpatient (CLI) | payer MEDICARE, OTHER ==
[2019-12-09 18:13] VITALS: BMI 29.1
== END | disposition home or self-care (01) ==
LOC: D.RAD 14:22
PROVIDERS: ATTEND Internal Medicine Pulmonary Disease
DX: J90 Pleural effusion, not elsewhere classified (principal)

== ENCOUNTER → 2020-06-26 13:15 | Outpatient (CLI) | payer MEDICARE, OTHER ==
[2019-12-09 18:13] VITALS: BMI 29.1
== END | disposition home or self-care (01) ==
LOC: D.US 13:00
PROVIDERS: ATTEND Internal Medicine Cardiovascular Disease
DX: I65.23 Occlusion and stenosis of bilateral carotid arteries (principal)

== ENCOUNTER → 2021-02-17 09:22 | Outpatient (CLI) | payer MEDICARE, OTHER ==
[2019-12-09 18:13] VITALS: BMI 29.1
== END | disposition home or self-care (01) ==
LOC: D.CT 09:22
PROVIDERS: ATTEND Internal Medicine Hematology & Oncology
DX: C7A.098 Malignant carcinoid tumors of other sites (principal); C34.30 Malignant neoplasm of lower lobe, unspecified bronchus or lung